=== PATIENT | female | born 1970 | race Caucasian/White ===

== ENCOUNTER 2020-11-13 07:20 | Outpatient (REF) | payer OTHER, SELFPAY | END 2020-11-13 07:21 | disposition home or self-care (01) | LOC: HO.LAB 07:20 | PROVIDERS: PCP Internal Medicine; Visit Provider Internal Medicine | DX: Z20.828 Contact with and (suspected) exposure to other viral communicable diseases (principal) | CPT/HCPCS: C9803; U0003 ==

== ENCOUNTER 2021-01-17 10:19 | Outpatient (REF) | payer OTHER, SELFPAY ==
[2021-01-17 12:34] LABS: Glucose Urine UA NEG (NEG); Leukocyte Esterase Urine NEG (NEG); Nitrite Urine NEG (NEG); PH 5.5 (5.0-8.0); Specific Gravity - Urine >= 1.030 (1.005-1.025); Urine Blood 1+ (NEG); Urine Ketones NEG (NEG); Urine Protein NEG (NEG-TRACE)
[2021-01-17 12:40] LABS: Appearance Urine CLEAR; Color Urine YELLOW
[2021-01-17 13:18] LABS: Bacteria Urine TRACE /LPF; Mucus Urine 1+ /LPF; RBC Urine 0-2 /HPF (0); Squamous Epithelial Cell Urine 1+ /LPF; WBC Urine 0-2 /HPF (0-4)
== END 2021-01-17 10:20 | disposition home or self-care (01) ==
LOC: HO.LNP 10:19
PROVIDERS: PCP Internal Medicine; Visit Provider Internal Medicine
DX: R31.0 Gross hematuria (principal)
CPT/HCPCS: 81001; 81003

== ENCOUNTER 2021-01-30 10:22 | Outpatient (REF) | payer OTHER, SELFPAY ==
[2021-01-30 10:34] LABS: Glucose Urine UA NEG (NEG); Leukocyte Esterase Urine NEG (NEG); Nitrite Urine NEG (NEG); Specific Gravity - Urine <= 1.005 (1.005-1.025); Urine Blood NEG (NEG); Urine Ketones NEG (NEG); Urine Protein NEG (NEG-TRACE)
[2021-01-30 10:37] LABS: Appearance Urine CLEAR; Color Urine YELLOW
== END 2021-01-30 10:23 | disposition home or self-care (01) ==
LOC: HO.LNP 10:22
PROVIDERS: Visit Provider Internal Medicine
DX: R31.9 Hematuria, unspecified (principal)
CPT/HCPCS: 81003

== ENCOUNTER 2021-02-28 07:45 | Outpatient (REF) | payer OTHER, SELFPAY ==
[2021-02-28 10:38] LABS: MANUAL DIFF FLAG NO
[2021-02-28 11:07] LABS: Basophils Absolute Auto 0.1 X10*3/uL (0.0-0.2); Basophils Percent Auto 0.7 % (0-2); Eosinophils Absolute Auto 0.1 X10*3/uL (0.0-0.4); Eosinophils Percent Auto 1.1 % (0-4); Hematocrit 40.8 % (37-47); Hemoglobin 13.6 g/dl (12.0-16.0); Imm Gran Abs Auto 0.02 X10*3/uL (0.00-0.03); Imm Gran Pct Auto 0.3 % (0.0-0.4); Lymphocytes Percent Auto 27.7 % (20-40); Mean Corpuscular HGB Conc 33.3 g/dl (31.0-35.0); Mean Corpuscular Hemoglobin 30.8 pg (27.0-33.0); Mean Corpuscular Volume 92.5 fL (80-98); Monocytes Absolute Auto 0.3 X10*3/uL (0.1-1.2); Monocytes Percent Auto 4.8 % (2-11); Neutrophils Absolute Auto 4.6 X10*3/uL (2.0-8.3); Neutrophils Percent Auto 65.4 % (45-73); Platelet Count 380 X10*3/uL (160-400); Red Blood Count 4.41 X10*6/uL (4.20-5.50); Red Cell Distribution Width 12.2 % (11.0-16.0); White Blood Count 7.1 X10*3/uL (4.8-10.8)
[2021-02-28 11:44] LABS: Glucose Urine UA NEG (NEG); Leukocyte Esterase Urine TRACE (NEG); Nitrite Urine NEG (NEG); Specific Gravity - Urine >= 1.030 (1.005-1.025); Urine Blood TRACE (NEG); Urine Ketones NEG (NEG); Urine Protein NEG (NEG-TRACE)
[2021-02-28 11:51] LABS: Appearance Urine HAZY; Color Urine YELLOW
[2021-02-28 11:59] LABS: Alanine Aminotransferase 13 U/L (0-31); Albumin Level 4.3 g/dL (3.5-5.0); Alkaline Phosphatase 69 U/L (39-117); Anion Gap 12 (12-20); Aspartate Amino Transferase 18 U/L (5-31); Bilirubin Total 0.7 mg/dL (0.0-1.0); Blood Urea Nitrogen 17 mg/dL (9-16); Calcium 8.9 mg/dL (8.4-10.2); Carbon Dioxide 26 mmol/L (22-29); Chloride 107 mmol/L (96-108); Cholesterol 215 mg/dL; Estimated Glomerular Filt Rate > 60; Glucose Fasting 90 mg/dL (60-99); HDL Cholesterol 49 mg/dL; LDL Cholesterol Calculated 140 mg/dl; Potassium 4.2 mmol/L (3.3-5.1); Sodium 141 mmol/L (135-145); Total Protein 7.2 g/dL (6.5-8.0); Triglycerides 132 mg/dL
[2021-02-28 12:05] LABS: Vitamin D 25-OH Total 11.2 ng/mL (>30)
[2021-02-28 12:18] LABS: Bacteria Urine 2+ /LPF; Mucus Urine 2+ /LPF; RBC Urine 0 /HPF (0); Squamous Epithelial Cell Urine 2+ /LPF
== END 2021-02-28 07:46 | disposition home or self-care (01) ==
LOC: HO.LNP 07:45
PROVIDERS: Visit Provider Internal Medicine
DX: Z00.00 Encounter for general adult medical examination without abnormal findings (principal); R31.9 Hematuria, unspecified; R73.01 Impaired fasting glucose; E78.2 Mixed hyperlipidemia
CPT/HCPCS: 80053; 80061; 81001; 81003; 82306; 85025

== ENCOUNTER 2021-09-16 10:56 | Outpatient (REF) | payer OTHER, SELFPAY ==
[2021-09-16 11:25] LABS: COVID-19 Test Negative (Negative)
== END 2021-09-16 10:57 | disposition home or self-care (01) ==
LOC: HO.LAB 10:56
PROVIDERS: PCP Internal Medicine; Visit Provider Internal Medicine
DX: Z20.822 Contact with and (suspected) exposure to COVID-19 (principal)
CPT/HCPCS: 36415; 87635; C9803

== ENCOUNTER 2021-10-09 14:30 | Outpatient (REF) | payer OTHER, SELFPAY ==
--- NOTE | ~2021-10-09 | US_ITS ---
EXAMINATION: US VENOUS ULTRASOUND WITH DOPPLER LOWER EXTREMITY, LEFT CLINICAL INFORMATION: Left leg swelling. COMPARISON: None TECHNIQUE: Ultrasound of the deep veins is performed from the hip to the calf with compression sonography and color and pulse Doppler assessment. Spectral analysis with color-flow imaging is performed. FINDINGS: There is normal venous compression and respiratory variation and augmented flow. The visualized common femoral vein, superficial femoral vein, profunda femoral vein, popliteal vein, and the trifurcation region shows no evidence of deep venous thrombosis. There is no significant popliteal fossa cyst. There is anechoic fluid collection posterior to the knee medially measuring 2.6 x 0.9 x 1.3 cm, ? small Arevalo's cyst If the patient's symptoms persist, followup ultrasound in 5 days 7 days might be of value to exclude proximal propagation from a non-visualized calf vein. US/US venous duplex LE IMPRESSION: No DVT demonstrated in the left lower extremity. Suspect small Arevalo's cyst.
== END 2021-10-09 14:31 | disposition home or self-care (01) ==
LOC: HO.US 14:30
PROVIDERS: PCP Internal Medicine; Visit Provider Internal Medicine
DX: R60.0 Localized edema (principal); M79.89 Other specified soft tissue disorders
CPT/HCPCS: 93971

== ENCOUNTER 2021-10-24 08:30 | Day surgery (SDC) | payer OTHER, SELFPAY ==
--- NOTE | 2021-10-23 12:28 | P.CONAN_ITS ---
Documented by User: Tonia Talbot NP 10/23/21 12:28 HPI - Anesthesia Eval Consult details Narrative: 51yo F for Colonoscopy PMFSH Active Problems Active Problems: All Active Problems (Updated 10/15/21 @ 15:15 by Seema Perry, ZEHRA) Sprain of knee (Acute) Past Medical History Medical History COVID-19 vaccine series completed History of COVID-19 No pertinent past medical history Surgical History Surgical History Hx of tubal ligation Social History Social History Are you a primary urgent care nurse practitioner to a significant other at home: No Do you presently have visiting nurse or other home services: No Patient Tobacco Use Status: Never used Tobacco Use of substances other than those prescribed or required for medical reasons: No Are you DNR?: No Advance Directives: No Advance Directives Information Provided: Yes Meds Allergies Allergy/AdvReac Type Severity Reaction Status Date / Time No Known Allergies Allergy Verified 10/24/21 09:55 [No Known Allergies*] Exam Exam Date and Time: October 23, 2021 1228 Assessment and Plan Assessment Anesthesia Assessment: Chart Reviewed Documented by User: Sindy Tay MD 10/24/21 10:58 [facility] Past Medical History Medical History COVID-19 vaccine series completed History of COVID-19 No pertinent past medical history Family History Family history of problems with anesthesia: No Surgical History Surgical History Hx of tubal ligation History of Problems with Anesthesia: No Social History Social History Are you a primary urgent care nurse practitioner to a significant other at home: No Do you presently have visiting nurse or other home services: No Patient Tobacco Use Status: Never used Tobacco Use of substances other than those prescribed or required for medical reasons: No Are you DNR?: No Advance Directives: No Advance Directives Information Provided: Yes Meds Allergies Allergy/AdvReac Type Severity Reaction Status Date / Time No Known Allergies Allergy Verified 10/24/21 09:55 [No Known Allergies*] Exam Height,Weight and Vital Signs: Height 5 ft 2 in Weight 66.224 kg Vital Signs Temp Pulse Resp BP Pulse Ox 10/24/21 09:56 98.0 F 96 20 143/95 H 98 Airway Mallampati Class: II TM Dist: >3cm Neck ROM: Full Heart: RRR Lungs: CTAB Assessment and Plan Assessment Anesthesia Assessment: Anesthesia Plan Discussed Final Anesthetic Review Family History of Problems with Anesthesia: No History of Problems with Anesthesia: No NPO: Yes ASA Class: I Final Preanesthetic Review: No Changes in Pt Med Stat, Meds/Allgs Chart Reviewed, Consent Obtained/Reviewed and Anes Risks/Benef Reviewed Patient Risk: Low Procedure Risk: Low Assessment/Block/Sedation in SS: Assess/Block/Sedation-SS Anesthetic Plan Anesthetic Plan: MAC: Disposition: Standard PACU
[2021-10-24 09:56] VITALS: BP 143/95; PULSE 96; RESP 20; TEMP 36.7; O2SAT 98; BMI 26.6
[2021-10-24] MEDS: Lactated Ringers 1,000 ML 100 ML IVCONT (10:10)
--- NOTE | 2021-10-24 10:27 | MHC.SHP ---
Pre-Procedural Eval Section A Date of Service: 10/24/21 Section B Chief Complaint: screening Details of Present Illness: see H&P no changes Relevant Family History (Specify if Yes): No Relevant Social History: None Medical History: No relevant PMH History of Previous Operations: No relevant previous surgery Allergies: Allergies Allergy/AdvReac Type Severity Reaction Status Date / Time No Known Allergies Allergy Verified 10/24/21 09:55 [No Known Allergies*] Review of Systems Sugical H&P ROS: Negative: Constitution, Cardiovascular, Respiratory, Neurological, Psychiatric, Hem-Onc, Allergic/Immunologic, Gastrointestinal, Genitourinary, Musculoskeletal, Integumentary, Endocrine and Eyes/Ears/Nose/Throat Exam Surgical H&P Exam: Normal: HEENT, Normal: Heart, Normal: Lungs, Normal: Extremities, Normal: Abdomen, Normal: Skin and Normal: Neurological Plan Diagnosis/Plan: Unchanged I have reviewed the history and physical and performed a pertinent physical examination on my patient. No changes have occurred unless specified.
--- NOTE | 2021-10-24 11:06 | PM.OP ---
Brief Operative Note Date of Service: 10/24/21 Pre-op diagnosis: screening Post-op diagnosis: same Procedure: colonoscopy Surgeon: Taiwo Weiss Anesthesia: MAC Was an Regulatory Affairs Specialist used for this Procedure?: No Estimated blood loss (mL): 0 Pathology: none sent Condition: stable Disposition: PACU
[2021-10-24 11:10] VITALS: BP 90/53; PULSE 85; RESP 16; TEMP 36.7; O2SAT 97
[2021-10-24 11:25] VITALS: BP 126/84; PULSE 74; RESP 16; O2SAT 98
[2021-10-24 11:40] VITALS: BP 128/84; PULSE 84; RESP 16; TEMP 36.7; O2SAT 99
--- NOTE | 2021-10-24 12:22 | OP_ITS ---
SURGEON: Taiwo Weiss MD INDICATIONS: Colon cancer screening. PREOPERATIVE DIAGNOSIS: POSTOPERATIVE DIAGNOSIS: PROCEDURE PERFORMED: Colonoscopy to the terminal ileum. ESTIMATED BLOOD LOSS: COMPLICATIONS: ANESTHESIA: Monitored anesthesia care. ASSISTANTS: SPECIMENS: DESCRIPTION OF PROCEDURE: History and physical performed. The risks and benefits of the procedure were explained to the patient. Informed consent was obtained. The patient was placed in the left lateral decubitus position. A digital rectal exam was performed and was found to be normal. The Olympus pediatric video colonoscope was introduced into the rectum and advanced to the cecum without difficulty. The cecum was identified by transillumination, palpation, and identification of ileocecal valve. Examination was performed. The scope was removed. She tolerated the procedure well and was taken to recovery area in stable condition. FINDINGS: The terminal ileum was examined and appeared normal. The visualized colonic mucosa was normal. The quality of prep was good. No polyps were identified. Retroflexed examination was normal. IMPRESSION: Normal colonoscopy. RECOMMENDATIONS: 1. Follow up as needed. 2. Repeat colonoscopy is recommended in 10 years for average risk individuals. MD JUMA Plummer/LEONID / [id number]
== END 2021-10-24 12:25 | disposition home or self-care (01) ==
PROVIDERS: PCP Internal Medicine; Visit Provider Internal Medicine Gastroenterology
PROC: 0DJD8ZZ Inspection of Lower Intestinal Tract, Via Natural or Artificial Opening Endoscopic (ICD-10-PCS; CPT 45378; principal; 2021-10-24 10:20)
DX: Z12.11 Encounter for screening for malignant neoplasm of colon (principal); Z86.16 Personal history of COVID-19; Z98.51 Tubal ligation status
CPT/HCPCS: 45378

== ENCOUNTER 2021-11-25 08:00 | Outpatient (REF) | payer OTHER, SELFPAY ==
--- NOTE | ~2021-11-25 | XR_ITS ---
EXAMINATION: XR KNEE, LEFT XR KNEE AP STANDING CLINICAL INFORMATION: Pain unspecified knee COMPARISON: None TECHNIQUE: Lateral and sunrise views of the left knee. AP bilateral standing view of the knees was obtained. FINDINGS: Bones and soft tissues are normal. No fracture. On lateral radiograph there may be trace left effusion. Alignment is anatomic. Arguably there is slight narrowing of the medial joint spaces. Otherwise joint spaces are well-maintained. No abnormal soft tissue calcification. XR/XR knee LT 2V IMPRESSION: Questionable trace left effusion and mild bilateral medial compartmental narrowing
--- NOTE | ~2021-11-25 | XR_ITS ---
EXAMINATION: XR KNEE, LEFT XR KNEE AP STANDING CLINICAL INFORMATION: Pain unspecified knee COMPARISON: None TECHNIQUE: Lateral and sunrise views of the left knee. AP bilateral standing view of the knees was obtained. FINDINGS: Bones and soft tissues are normal. No fracture. On lateral radiograph there may be trace left effusion. Alignment is anatomic. Arguably there is slight narrowing of the medial joint spaces. Otherwise joint spaces are well-maintained. No abnormal soft tissue calcification. XR/XR knee standing BI IMPRESSION: Questionable trace left effusion and mild bilateral medial compartmental narrowing
== END 2021-11-25 08:01 | disposition home or self-care (01) ==
LOC: HO.HOSX 08:00
PROVIDERS: Visit Provider Physician Assistant
DX: M22.2X2 Patellofemoral disorders, left knee (principal)
CPT/HCPCS: 20610; 73560; 73565; J1040

== ENCOUNTER 2022-02-17 14:19 | Outpatient (REF) | payer OTHER, SELFPAY ==
[2022-02-18 10:37] LABS: CT PCR NOT DETECTED (Not Detect.); NG PCR NOT DETECTED (Not Detect.)
[2022-02-19 15:26] LABS: HPV mRNA E6/E7 rflx Not Detected (Not Detected)
== END 2022-02-17 14:20 | disposition home or self-care (01) ==
LOC: HO.LAB 14:19
PROVIDERS: PCP Internal Medicine; Visit Provider Advanced Practice Midwife
DX: Z01.419 Encounter for gynecological examination (general) (routine) without abnormal findings (principal); N95.1 Menopausal and female climacteric states; Z11.51 Encounter for screening for human papillomavirus (HPV); Z11.3 Encounter for screening for infections with a predominantly sexual mode of transmission; Z11.8 Encounter for screening for other infectious and parasitic diseases
CPT/HCPCS: 87491; 87591; 87624; 88142

== ENCOUNTER 2022-03-06 09:57 | Outpatient (REF) | payer OTHER, SELFPAY ==
[2022-03-06 10:01] LABS: MANUAL DIFF FLAG NO
[2022-03-06 10:17] LABS: Basophils Absolute Auto 0.1 X10*3/uL (0.0-0.2); Basophils Percent Auto 0.8 % (0-2); Eosinophils Absolute Auto 0.1 X10*3/uL (0.0-0.4); Eosinophils Percent Auto 1.2 % (0-4); Hematocrit 40.2 % (37.0-47.0); Hemoglobin 13.7 g/dl (12.0-16.0); Imm Gran Abs Auto 0.02 X10*3/uL (0.00-0.03); Imm Gran Pct Auto 0.3 % (0.0-0.4); Lymphocytes Absolute Auto 2.2 X10*3/uL (1.2-4.9); Lymphocytes Percent Auto 29.1 % (20-40); Mean Corpuscular HGB Conc 34.1 g/dl (31.0-35.0); Mean Corpuscular Hemoglobin 31.9 pg (27.0-33.0); Mean Corpuscular Volume 93.7 fL (80.0-98.0); Mean Platelet Volume 10.4 fL (9.4-12.3); Monocytes Absolute Auto 0.4 X10*3/uL (0.1-1.2); Monocytes Percent Auto 4.9 % (2-11); Neutrophils Absolute Auto 4.8 x10*3/uL (2.0-8.3); Neutrophils Percent Auto 63.7 % (45-73); Platelet Count 326 X10*3/uL (160-400); Red Blood Count 4.29 X10*6/uL (4.20-5.50); White Blood Count 7.5 X10*3/uL (4.8-10.8)
[2022-03-06 10:27] LABS: Alanine Aminotransferase 14 U/L (0-31); Albumin Level 4.2 g/dL (3.5-5.0); Alkaline Phosphatase 67 U/L (39-117); Anion Gap 12 (12-20); Aspartate Amino Transferase 19 U/L (5-31); Blood Urea Nitrogen 17 mg/dL (9-16); Calcium 9.2 mg/dL (8.4-10.2); Carbon Dioxide 24 mmol/L (22-29); Chloride 105 mmol/L (96-108); Cholesterol 254 mg/dL; Estimated Glomerular Filt Rate > 60; Glucose Fasting 98 mg/dL (60-99); HDL Cholesterol 54 mg/dL; LDL Cholesterol Calculated 155 mg/dl; Potassium 4.2 mmol/L (3.3-5.1); Sodium 137 mmol/L (135-145); Total Protein 7.1 g/dL (6.5-8.0); Triglycerides 227 mg/dL
[2022-03-06 10:48] LABS: Vitamin D 25-OH Total 12.9 ng/mL (>30)
[2022-03-06 12:17] LABS: Appearance Urine CLOUDY; Color Urine STRAW; Glucose Urine UA NEG (NEG); Leukocyte Esterase Urine NEG (NEG); Nitrite Urine NEG (NEG); PH 5.5 (5.0-8.0); Specific Gravity - Urine >= 1.030 (1.005-1.025); Urine Blood TRACE (NEG); Urine Ketones NEG (NEG); Urine Protein NEG (NEG-TRACE)
[2022-03-06 12:27] LABS: Amorphous Sediment Urine 4+ /LPF; RBC Urine 0-2 /HPF (0); Squamous Epithelial Cell Urine TRACE /LPF; WBC Urine 0 /HPF (0-4)
== END 2022-03-06 09:58 | disposition home or self-care (01) ==
LOC: HO.LNP 09:57
PROVIDERS: Visit Provider Internal Medicine
DX: Z00.00 Encounter for general adult medical examination without abnormal findings (principal); E78.2 Mixed hyperlipidemia; E55.9 Vitamin D deficiency, unspecified
CPT/HCPCS: 80053; 80061; 81001; 81003; 82306; 85025

== ENCOUNTER 2022-03-25 07:28 | Outpatient (REF) | payer OTHER, SELFPAY ==
--- NOTE | ~2022-03-25 | MM_ITS ---
EXAMINATION: MM SCREENING DIGITAL BREAST TOMOSYNTHESIS, BILATERAL CLINICAL INFORMATION: Screening. Asymptomatic. The lifetime risk of breast cancer based on the Tyrer-Cuzick Model is 8%. COMPARISON: Mammography: 12/15/2019, 09/28/2018, 05/11/2017 TECHNIQUE: Digital breast tomosynthesis is performed in both the craniocaudal and mediolateral oblique views along with computer-aided detection (CAD). Synthesized 2D images are generated from the tomosynthesis. FINDINGS: The breasts are heterogeneously dense, which may obscure small masses (ACR BI-RADS breast composition Category c). There are no significant masses, abnormal calcifications, or other abnormalities. Breast tissue composition borders on average fibroglandular. Again, there is biopsy clip marker mid upper outer left breast with some adjacent punctate calcifications. The skin contours are smooth. No significant changes. MM/MM tomosynthesis screening BI IMPRESSION: No mammographic evidence of malignancy. ASSESSMENT: BI-RADS 2: Benign RECOMMENDATION: Routine annual mammography screening. This patient's information was entered into a reminder system with a target due date for their next mammogram.
== END 2022-03-25 07:29 | disposition home or self-care (01) ==
LOC: HO.MAMMO 07:28
PROVIDERS: PCP Internal Medicine; Visit Provider Internal Medicine
DX: Z12.31 Encounter for screening mammogram for malignant neoplasm of breast (principal)
CPT/HCPCS: 77063; 77067

== ENCOUNTER → 2022-04-27 12:41 | Outpatient (REF) | payer OTHER, SELFPAY ==
--- NOTE | 2022-04-27 12:44 | CA_ITS ---
Transthoracic Echocardiogram Patient (Last, First, Middle): Gloria Lee, Gender: Female Date of : 1970 Age: 52 Procedure Date: 04/27/2022 Procedure Type: Transthoracic Echocardiogram Location: OP Height: 157.48 cm Weight: 72.58 kg BSA: 1.74 m2 Heart Rate: 74 bpm BP: 124 / 72 mmHg Staff Accountant: SB Referring MD: Diego Mayes MD Symptoms: R01.1 HEART MURMUR Study Quality: Good ECG Rhythm: Sinus Conclusions: - The left ventricular systolic function is normal. The calculated ejection fraction is 62% by biplane method. - There is low normal right ventricular systolic function. - There is mild tricuspid valve regurgitation. Findings Left Ventricle Normal left ventricular cavity size. There is normal left ventricular wall thickness. The left ventricular systolic function is normal. The calculated ejection fraction is 62% by biplane method. Diastolic function is normal for age. Peak global longitudinal strain - 16.3%; minimally reduced. Could also be technical. Right Ventricle Normal right ventricular cavity size. There is low normal right ventricular systolic function. Atria Both atria are normal in size. Aortic Valve There is a normal trileaflet aortic valve. There is no aortic valve stenosis. There is no aortic valve regurgitation. Mitral Valve The mitral valve appears normal. There is trace mitral valve regurgitation. There is no mitral valve stenosis. Pulmonic Valve The pulmonic valve is likely normal. There is trace pulmonic valve regurgitation. Tricuspid Valve Normal tricuspid valve structure. There is mild tricuspid valve regurgitation. The pulmonary artery systolic pressure is normal. Great Vessels The aortic annulus, sinuses of valsalva, asc aorta, and aortic arch are normal in size. Venous The inferior vena cava is normal in size and collapses greater than 50% with inspiration. Pericardium/Pleural There is no evidence of pericardial effusion. Prior Study Comparison No prior study available for comparison. Reporting delayed due to technical difficulty. Measurements manually entered. Measurements 2D Linear Measurements RVIDd: 4.08 IVSd: 0.76 0.6-0.9/0.6-1.0 cm LVIDd: 4.85 3.9-5.3/4.2-5.9 cm LVIDs: 3.16 2.0-3.6 cm LVPWd: 0.70 0.7-1.1 cm LA Diam: 3.70 2.7-3.8/3.0-4.0 cm LVOT Diam: 2.10 3.0+(-)1.3 cm 2D Volumes LA ESV A/L: 28.20 22-52/18-58 ML/M2 RA ESV A/L: 16.30 19-21 ML/M2 2D Systolic Function EF Teich: 63.90 >55% EF 4C: 64.60 >55% EF 2C: 58.40 >55% EF BiP: 62.00 >55% Mitral Valve MV Pk E: 0.84 MV PK A: 0.82 MV Decel Time: 211.00 E/A: 1.00 E'Lateral: 9.14 E'Medial: 6.85 E/E' Med: 12.30 E/E' Lat: 9.20 PHT: 62.00 MVA PHT: 3.55 Aortic Valve AoV Pk Gera: 1.54 AoV Mn Gera: 1.04 AoV VTI: 33.90 AoV Pk Grad: 9.00 Aov Mn Grad: 5.00 ANDRAE Cont.VTI: 2.39 ANDRAE Method: Continuity Equation LVOT LVOT Pk Gera: 1.17 LVOT Mn Gera: 0.77 LVOT VTI: 23.40 LVOT Pk Grad: 6.00 LVOT Mn Grad: 3.00 LVOT Diam: 2.10 Diastolic Function MV Pk E: 0.84 MV Pk A: 0.82 E/A: 1.00 E'Medial: 6.85 E/E' Med: 12.30 E' Laterial: 9.14 E/E' Lat: 9.20 IVC Diam Insp: 1.97 IVC Diam Exp: 0.78 Right Ventricle TAPSE (mm): 16.90 TVS' Gera: 10.90 Tricuspid Valve TR Pk Gera: 2.20 TR Pk Grad: 20.00 RA Press: 3.00 RVSP: 23.00 IVC Diam Exp: 0.78 IVC Diam Insp: 1.97 Great Vessels Aorta Sinus of Valsalva: 2.68 2.0-3.[address] Ridge: 2.44 1.7-3.4 cm Ao Asc: 2.90 2.1-3.4 cm Pulmonary Veins Pulm Vein Pk S Gera: 0.64 Pulm Vein Pk D Gera: 0.42 Pulm Vein S/D 1.50 Pulmonary Valve PV Pk Gera: 0.77 Peak PV Grad: 2.00 Updated in Other Vendor System with Status of Final Tyler Sneed MD electronically signed on 04/29/2022 5:42:57 PM with status of Final
== END ==
LOC: HO.CARD 12:41
PROVIDERS: PCP Internal Medicine; Visit Provider Internal Medicine
DX: R01.1 Cardiac murmur, unspecified (principal)
CPT/HCPCS: 93306

== ENCOUNTER 2023-02-19 14:05 | Outpatient (REF) | payer OTHER, SELFPAY ==
[2023-02-20 10:14] LABS: BV Int Neg Control Negative (Negative); BV Int Pos Control Positive (Positive)
== END 2023-02-19 14:06 | disposition home or self-care (01) ==
LOC: HO.LNP 14:05
PROVIDERS: PCP Internal Medicine; Visit Provider Advanced Practice Midwife
DX: N76.0 Acute vaginitis (principal); N95.0 Postmenopausal bleeding; R23.2 Flushing
CPT/HCPCS: 87480; 87510; 87660

== ENCOUNTER 2023-02-25 15:22 | Outpatient (REF) | payer OTHER, SELFPAY ==
--- NOTE | ~2023-02-25 | XR_ITS ---
EXAMINATION: XR ANKLE, RIGHT CLINICAL INFORMATION: Pain ankle COMPARISON: None available. TECHNIQUE: Right ankle is imaged in 3 views. FINDINGS: Normal bony mineralization. The malleoli appear intact and the ankle mortise is symmetric. No fracture, dislocation, or arthropathy. No visible ankle capsular effusion. The subtalar joint appears normal. The retrocalcaneal recess is preserved. There is small to moderate plantar calcaneal spur. XR/XR ankle RT min 3V IMPRESSION: Small to moderate plantar calcaneal spur.
== END 2023-02-25 15:23 | disposition home or self-care (01) ==
LOC: HO.HOSX 15:22
PROVIDERS: Visit Provider Physician Assistant
DX: S93.401A Sprain of unspecified ligament of right ankle, initial encounter (principal); X58.XXXA Exposure to other specified factors, initial encounter; Y93.9 Activity, unspecified; Y92.9 Unspecified place or not applicable; Y99.9 Unspecified external cause status
CPT/HCPCS: 73610

== ENCOUNTER 2023-03-09 12:07 | Outpatient (REF) | payer OTHER, SELFPAY ==
[2023-03-09 12:10] LABS: MANUAL DIFF FLAG NO
[2023-03-09 12:49] LABS: Basophils Absolute Auto 0.1 X10*3/uL (0.0-0.2); Basophils Percent Auto 0.8 % (0-2); Eosinophils Absolute Auto 0.1 X10*3/uL (0.0-0.4); Eosinophils Percent Auto 1.4 % (0-4); Hematocrit 44.6 % (37.0-47.0); Hemoglobin 15.3 g/dl (12.0-16.0); Imm Gran Abs Auto 0.03 X10*3/uL (0.00-0.03); Imm Gran Pct Auto 0.4 % (0.0-0.4); Lymphocytes Absolute Auto 1.9 X10*3/uL (1.2-4.9); Lymphocytes Percent Auto 24.8 % (20-40); Mean Corpuscular HGB Conc 34.3 g/dl (31.0-35.0); Mean Corpuscular Hemoglobin 32.1 pg (27.0-33.0); Mean Corpuscular Volume 93.7 fL (80.0-98.0); Mean Platelet Volume 9.8 fL (9.4-12.3); Monocytes Absolute Auto 0.5 X10*3/uL (0.1-1.2); Monocytes Percent Auto 5.9 % (2-11); Neutrophils Absolute Auto 5.1 x10*3/uL (2.0-8.3); Neutrophils Percent Auto 66.7 % (45-73); Platelet Count 368 X10*3/uL (160-400); Red Blood Count 4.76 X10*6/uL (4.20-5.50); Red Cell Distribution Width 12.1 % (11.0-16.0); White Blood Count 7.6 X10*3/uL (4.8-10.8)
[2023-03-09 12:55] LABS: Appearance Urine Clear; Color Urine Yellow; Glucose Urine UA Negative (Negative); Leukocyte Esterase Urine Negative (Negative); Nitrite Urine Negative (Negative); PH 5.5 (5.0-9.0); UMIC TRIGGER UACC YES; Urine Blood Trace (Negative); Urine Ketones Negative (Negative); Urine Protein Negative (Neg-Trace)
[2023-03-09 12:59] LABS: Bacteria Urine Trace (None Seen); Hyaline Casts Urine 0-2 /LPF (0-2); WBC Urine 0-5 /HPF (0-5)
[2023-03-09 13:53] LABS: Alanine Aminotransferase 23 U/L (0-31); Albumin Level 4.3 g/dL (3.5-5.0); Alkaline Phosphatase 78 U/L (39-117); Anion Gap 16 (12-20); Aspartate Amino Transferase 23 U/L (5-31); Bilirubin Total 0.8 mg/dL (0.0-1.0); Blood Urea Nitrogen 14 mg/dL (9-16); Carbon Dioxide 24 mmol/L (22-29); Chloride 102 mmol/L (96-108); Cholesterol 265 mg/dL; Estimated Glomerular Filt Rate > 60; Glucose Fasting 101 mg/dL (60-99); HDL Cholesterol 49 mg/dL; LDL Cholesterol Calculated 145 mg/dl; Potassium 3.9 mmol/L (3.3-5.1); Sodium 138 mmol/L (135-145); Total Protein 7.1 g/dL (6.5-8.0); Triglycerides 356 mg/dL
[2023-03-09 13:57] LABS: Vitamin D 25-OH Total 9.5 ng/mL (>30)
== END 2023-03-09 12:08 | disposition home or self-care (01) ==
LOC: HO.LNP 12:07
PROVIDERS: Visit Provider Internal Medicine
DX: Z00.00 Encounter for general adult medical examination without abnormal findings (principal); E55.9 Vitamin D deficiency, unspecified; E78.2 Mixed hyperlipidemia
CPT/HCPCS: 80053; 80061; 81001; 82306; 85025

== ENCOUNTER 2023-03-11 12:42 | Outpatient (REF) | payer OTHER, SELFPAY ==
--- NOTE | ~2023-03-11 | US_ITS ---
EXAMINATION: US PELVIS CLINICAL INFORMATION: Postmenopausal bleeding. COMPARISON: None available. TECHNIQUE: Ultrasound of the pelvis is performed using both transabdominal and transvaginal transducers along with Doppler. Transvaginal imaging is performed due to inadequate visualization transabdominally. FINDINGS: The uterus is anteverted and measures 8.8 x 3.7 x 4.7 cm. There is a 1.8 x 1.8 x 2.4 cm left intramural mid uterine lesion and a 2.6 x 2.5 x 2.2 cm right intramural fundal lesion, statistically favored to represent fibroids. The endometrium measures 0.8 cm in thickness without discrete focal lesion. A small nabothian cysts are noted in the cervix. The ovaries are normal in morphology with preserved flow at the moment of this examination. The right ovary measures 2.6 x 1.2 x 1.8 cm, 3 mL and the left ovary measures 2.7 x 1.3 x 1.4 cm, 2.6 mL. No free fluid. US/US pelvic and transvaginal IMPRESSION: 1. Thickened endometrium in a postmenopausal patient. Recommend SALES CLERK consultation and if indicated correlation with an endometrial biopsy to exclude malignancy. 2. There are 2 intramural lesions in the uterus, statistically favored to represent fibroids.
== END 2023-03-11 12:43 | disposition home or self-care (01) ==
LOC: HO.US 12:42
PROVIDERS: PCP Internal Medicine; Visit Provider Advanced Practice Midwife
DX: N95.0 Postmenopausal bleeding (principal)
CPT/HCPCS: 76830; 76856

== ENCOUNTER 2023-03-24 15:13 | Outpatient (REF) | payer OTHER, SELFPAY | END 2023-03-24 15:14 | disposition home or self-care (01) | LOC: HO.LAB 15:13 | PROVIDERS: PCP Internal Medicine; Visit Provider Advanced Practice Midwife | DX: N95.0 Postmenopausal bleeding (principal); D21.9 Benign neoplasm of connective and other soft tissue, unspecified | CPT/HCPCS: 58100; 81025; 88305 ==

== ENCOUNTER → 2023-04-01 13:23 | Outpatient (BNVA) | payer OTHER, SELFPAY | PROVIDERS: PCP Internal Medicine; Visit Provider Advanced Practice Midwife ==

== ENCOUNTER 2023-04-08 10:24 | Outpatient (REF) | payer OTHER, SELFPAY ==
[2023-04-08 11:21] LABS: Appearance Urine Cloudy; Color Urine Yellow; Glucose Urine UA Negative (Negative); Leukocyte Esterase Urine Negative (Negative); Nitrite Urine Negative (Negative); PH 5.5 (5.0-9.0); UMIC TRIGGER UACC YES; Urine Blood Small (1+) (Negative); Urine Ketones 15 mg/dL (Negative); Urine Protein Negative (Neg-Trace)
[2023-04-08 11:38] LABS: Bacteria Urine 4+ (None Seen); RBC Urine 0-2 /HPF (0-2); Squamous Epithelial Cell Urine >20 /HPF (0-2); UACC Culture Trigger YES
== END 2023-04-08 10:25 | disposition home or self-care (01) ==
LOC: HO.LNP 10:24
PROVIDERS: PCP Internal Medicine; Visit Provider Internal Medicine
DX: R31.9 Hematuria, unspecified (principal)
CPT/HCPCS: 81001; 87086

== ENCOUNTER → 2023-05-10 12:35 | Outpatient (BNVA) | payer OTHER, SELFPAY | PROVIDERS: PCP Internal Medicine; Visit Provider Obstetrics & Gynecology ==

== ENCOUNTER 2023-05-14 11:11 | Outpatient (REF) | payer OTHER, SELFPAY ==
[2023-05-14 11:42] LABS: Appearance Urine Cloudy; Color Urine Yellow; Glucose Urine UA Negative (Negative); Leukocyte Esterase Urine Negative (Negative); Nitrite Urine Negative (Negative); PH 5.5 (5.0-9.0); Specific Gravity - Urine 1.025 (1.005-1.025); Urine Blood Negative (Negative); Urine Ketones Trace mg/dL (Negative); Urine Protein Negative (Neg-Trace)
[2023-05-14 11:46] LABS: Bacteria Urine 3+ (None Seen); Hyaline Casts Urine 0-2 /LPF (0-2); RBC Urine 0-2 /HPF (0-2); UACC Culture Trigger YES
== END 2023-05-14 11:12 | disposition home or self-care (01) ==
LOC: HO.LNP 11:11
PROVIDERS: Visit Provider Internal Medicine
DX: R31.9 Hematuria, unspecified (principal)
CPT/HCPCS: 81001; 87086

== ENCOUNTER 2023-06-01 15:47 | Outpatient (AMB) | payer OTHER, SELFPAY ==
--- OUTSIDE RECORDS SUMMARY | 2023-06-01 15:49 | XMS_ITS ---
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 Name Role Phone Diego Mayes Unavailable [phone] Venkat Glass Unavailable Unavailable Diego Mayes Unavailable [phone] PROBLEMS Type Condition ICD9-CM Code [id number] Code Onset Dates Condition Status SNOMED Code Problem Perimenopausal N95.1 Active 764264199 743482 Problem Memory loss R41.3 Active 71319813 Problem Dysthymia F34.1 Active 64240902 Problem Vitamin D deficiency E55.9 Active 49180491 Problem Hot flashes due to menopause N95.1 Active Problem Abnormal mammogram R92.8 Active 66844 0009 Problem Elevated triglycerides with high cholesterol E78.2 Active 128683610 Problem Arm paresthesia, left R20.2 Active 54249395 Problem Vaginal bleeding N93.9 Active 3860658 06 ALLERGIES Substance Reaction Event Type Date Status Metronidazole rash Drug Allergy March, Active ENCOUNTERS Encounter Location Date Diagnosis Diego Mayes MD [address] [place] [address] [id number] Apr, Diego Mayes MD [address] [place] [address] [id number] Apr, Hematuria R31.9 Diego Mayes MD [address] [id number] Apr, Diego Mayes MD [address] [id number] March, Hematuria, unspecified type R31.9 and Vaginal bleeding N93.9 Diego Mayes MD [address] [place] [address] [id number] March, Hematuria R31.9 Diego Mayes MD [address] [place] [address] [id number] Feb, Hematuria, unspecified type R31.9 ; Adult general medical exam Z00.00 ; Elevated triglycerides with high cholesterol E78.2 ; Vaginal bleeding N93.9 ; Skin lesion L98.9 and Depression screen Z13.31 Diego Mayes MD [address] [id number] Feb, Blood tests for routine general physical examination Z00.00 ; Vitamin D deficiency E55.9 and Elevated triglycerides with high cholesterol E78.2 Diego Mayes MD [address] [id number] Feb, Allergic reaction to drug, initial encounter T78.40XA Diego Mayes MD [address] [place] [address] [id number] May, COVID-19 U07.1 Diego Mayes MD [address] [place] [address] [id number] Feb, Adult general medical exam Z00.00 ; Elevated triglycerides with high cholesterol E78.2 ; Dysthymia F34.1 ; Vitamin D deficiency E55.9 ; Memory loss R41.3 ; Perimenopausal N95.1 ; Hot flashes due to menopause N95.1 ; Heart murmur R01.1 ; Depression screening Z13.31 and Encounter for screening for other viral diseases Z11.59 Diego Mayes MD [address] [place] [address] [id number] 15 Feb, 2022 Blood tests for routine general physical examination Z00.00 ; Elevated triglycerides with high cholesterol E78.2 and Vitamin D deficiency E55.9 Diego Mayes MD [address] [id number] Oct, Acute pain of left knee M25.562 and Encounter for screening for other viral diseases Z11.59 Diego Mayes MD [address] [id number] Sep, Acute pain of left knee M25.562 ; Labile hypertension R09.89 ; Encounter for immunization Z23 and Encounter for screening for other viral diseases Z11.59 Diego Mayes MD [address] [id number] Sep, Diego Mayes MD [address] [id number] Sep, Diego Mayes MD [address] [place] [address] [id number] Sep, Leg swelling M79.89 and Encounter for screening for other viral diseases Z11.59 Diego Mayes MD [address] [place] [address] [id number] Aug, Non-recurrent acute suppurative otitis media without spontaneous rupture of tympanic membrane, unspecified laterality H66.009 and Acute bacterial conjunctivitis of both eyes H10.33 Diego Mayes MD [address] [id number] 11 Apr, 2021 Menopause Z78.0 ; Acute recurrent maxillary sinusitis J01.01 and Encounter for screening for other viral diseases Z11.59 Diego Mayes MD [address] [place] [address] [id number] 07 Apr, 2021 Acute recurrent maxillary sinusitis J01.01 and COVID-19 U07.1 Diego Mayes MD [address] [place] [address] [id number] 15 Feb, 2021 Adult general medical exam Z00.00 ; Memory loss R41.3 ; Perimenopausal N95.1 ; Abnormal mammogram R92.8 ; Elevated triglycerides with high cholesterol E78.2 ; Dysthymia F34.1 ; Arm paresthesia, left R20.2 ; Encounter for screening for other viral diseases Z11.59 ; Depression screen Z13.31 ; COVID-19 U07.1 ; Vitamin D deficiency E55.9 and Low back pain M54.5 Diego Mayes MD [address] [id number] Feb, Blood tests for routine general physical examination Z00.00 ; Hematuria, unspecified type R31.9 ; Elevated fasting blood sugar R73.01 ; Elevated triglycerides with high cholesterol E78.2 and Perimenopausal N95.1 Diego Mayes MD [address] [id number] Jan, Diego Mayes MD [address] [id number] Jan, Hematuria, unspecified type R31.9 ; Vaginal bleeding N93.9 and Encounter for screening for other viral diseases Z11.59 Diego Mayes MD [address] [id number] Dec, Gross hematuria R31.0 and Encounter for screening for other viral diseases Z11.59 Diego Mayes MD [address] [id number] Aug, Diego Mayes MD [address] [id number] Aug, Arm paresthesia, left R20.2 ; Elevated triglycerides with high cholesterol E78.2 ; Dysthymia F34.1 ; Abnormal mammogram R92.8 ; Encounter for screening for other viral diseases Z11.59 ; Screening mammogram, encounter for Z12.31 and Hematuria, unspecified type R31.9 Diego Mayes MD [address] [id number] Jun, Arm paresthesia, left R20.2 ; Hematuria, unspecified type R31.9 ; Encounter for screening for other viral diseases Z11.59 ; Colon cancer screening Z12.11 ; Perimenopausal N95.1 ; Elevated triglycerides with high cholesterol E78.2 ; Blood tests for routine general physical examination Z00.00 and Elevated fasting blood sugar R73.01 Diego Mayes MD [address] [id number] Apr, Diego Mayes MD [address] [id number] Apr, Diego Mayes MD [address] [id number] Feb, Diego Mayes MD [address] [id number] Nov, Drug overdose, undetermined intent, subsequent encounter T50.904D and Suicide attempt T14.91XA Diego Mayes MD [address] [id number] Nov, Diego Mayes MD [address] [id number] Oct, Unspecified blepharitis right upper eyelid H01.001 and Encounter for immunization Z23 Diego Mayes MD [address] [id number] 15 Sep, 2018 Adverse effect of drug that acts primarily on skin, subsequent encounter T49.95XD ; 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 and Breast cancer screening Z12.31 Diego Mayes MD [address] [id number] Sep, Acute bacterial conjunctivitis of both eyes H10.33 and Urticaria due to cold L50.2 Diego Mayes MD [address] [id number] Jul, Diego Mayes MD [address] [place] [address] [id number] Dec, Dysthymia F34.1 Diego Mayes MD [address] [id number] Oct, Bronchospasm J98.01 Diego Mayes MD [address] [id number] Sep, Elevated triglycerides with high cholesterol E78.2 ; Dysthymia F34.1 ; Abnormal mammogram R92.8 and Refused influenza vaccine Z28.21 Diego Mayes MD [address] [id number] Aug, Elevated triglycerides with high cholesterol E78.2 Diego Mayes MD [address] [id number] Aug, Elevated triglycerides with high cholesterol E78.2 Diego Mayes MD [address] [id number] Jul, Diego Mayes MD [address] [place] [address] [id number] Jul, Annual visit for general adult medical examination with abnormal findings Z00.01 ; Elevated triglycerides with high cholesterol E78.2 ; Depression screening Z13.89 ; Menopause Z78.0 and Dysthymia F34.1 Diego Mayes MD [address] [place] [address] [id number] Jul, Elevated triglycerides with high cholesterol E78.2 Diego Mayes MD [address] [place] [address] [id number] Jul, Blood tests for routine general physical examination Z00.00 and Refused influenza vaccine Z28.21 Diego Mayes MD [address] [place] [address] [id number] Apr, Abnormal mammogram R92.8 Diego Mayes MD [address] [place] [address] [id number] Apr, Breast cancer screening Z12.39 and Breast tenderness N64.4 Diego Mayes MD [address] [place] [address] [id number] Apr, Breast cancer screening Z12.39 and Breast tenderness N64.4 Diego Mayes MD [address] [place] [address] [id number] Jan, Low back pain M54.5 and Perimenopausal N95.1 Diego Mayes MD [address] [place] [address] [id number] Dec, Low back pain M54.5 Diego Mayes MD [address] [place] [address] [id number] Oct, Memory loss R41.3 ; Feeling worried R45.89 and Hematuria R31.9 Diego Mayes MD [address] [place] [address] [id number] Oct, Hematuria R31.9 Diego Mayes MD [address] [place] [address] [id number] Sep, Hematuria R31.9 Diego Mayes MD [address] [place] [address] [id number] Sep, Hematuria R31.9 ; Memory loss R41.3 ; Feeling worried R45.89 and H/O breast lump Z87.898 Diego Mayes MD 10 [facility] [address] [id number] Sep, Diego Mayes MD [address] [id number] Aug, Hematuria R31.9 Diego Mayes MD [address] [id number] Aug, Hematuria R31.9 Diego Mayes MD [address] [id number] Aug, Diego Mayes MD [address] [id number] Aug, Memory loss R41.3 ; Perimenopausal N95.1 ; Feeling worried R45.89 ; H/O breast biopsy Z98.890 ; Refused influenza vaccine Z28.21 and Lump of right breast N63 IMMUNIZATIONS Vaccine Route Administration Date Status Fluarix Quadrivalent IM Intramuscular Oct 13, 2021 Adm inistered SARS-COV-2 Moderna Unknown March 15, 2021 Adminis tered Covid Vaccine Unknown February 15, 2021 Administered Fluarix Quadrivalent IM Intramuscular Oct 28, 2018 Adm inistered Flu Vaccine IM Intramuscular Sep 12, 2017 Administere d SOCIAL HISTORY Qualifiers Date Never Smoker REASON FOR REFERRAL FUNCTIONAL STATUS PLAN OF CARE Activity Details VITAL SIGNS Height 62 in 2023-04-20 Height 62 in 2023-03-12 Height 62 in 2023-03-01 Height 62 in 2022-06-16 Height 62 in 2022-03-10 Height 62 in 2021-11-11 Height 62 in 2021-10-13 Height 62 in 2021-10-09 Height 62 in 2021-09-15 Height 62 in 2021-05-02 Height 62 in 2021-04-28 Height 62 in 2021-03-06 Height 62 in 2021-01-30 Height 62 in 2021-01-17 Height 62 in 2020-06-25 Height 62 in 2018-12-20 Height 62 in 2018-10-28 Height 62 in 2018-10-06 Height 62 in 2018-09-30 Height 62 in 2018-01-11 Height 62 in 2017-11-09 Height 62 in 2017-10-11 Height 62 in 2017-08-17 Height 62 in 2017-05-17 Height 62 in 2017-02-16 Height 62 in 2017-01-08 Height 62 in 2016-11-20 Height 62 in 2016-10-06 Height 62 in 2016-09-03 Weight 160 lbs 2023-04-20 Weight 160 lbs 2023-03-12 Weight 168 lbs 2023-03-01 Weight 149 lbs 2022-06-16 Weight 159 lbs 2022-03-10 Weight 154 lbs 2021-11-11 Weight 153 lbs 2021-10-13 Weight 143 lbs 2021-09-15 Weight 142 lbs 2021-05-02 Weight 138 lbs 2021-04-28 Weight 139 lbs 2021-03-06 Weight 146 lbs 2021-01-30 Weight 149 lbs 2021-01-17 Weight 165 lbs 2020-06-25 Weight 153 lbs 2018-12-20 Weight 159 lbs 2018-10-28 Weight 154 lbs 2018-10-06 Weight 154 lbs 2018-09-30 Weight 145 lbs 2018-01-11 Weight 151 lbs 2017-11-09 Weight 146 lbs 2017-10-11 Weight 148 lbs 2017-08-17 Weight 142 lbs 2017-05-17 Weight 139 lbs 2017-02-16 Weight 140 lbs 2017-01-08 Weight 147 lbs 2016-11-20 Weight 144 lbs 2016-10-06 Weight 144 lbs 2016-09-03 BMI 29.26 kg/m2 2023-04-20 BMI 29.26 kg/m2 2023-03-12 BMI 30.72 kg/m2 2023-03-01 BMI 27.25 kg/m2 2022-06-16 BMI 29.08 kg/m2 2022-03-10 BMI 28.16 kg/m2 2021-11-11 BMI 27.98 kg/m2 2021-10-13 BMI 26.15 kg/m2 2021-09-15 BMI 25.97 kg/m2 2021-05-02 BMI 25.24 kg/m2 2021-04-28 BMI 25.42 kg/m2 2021-03-06 BMI 26.70 kg/m2 2021-01-30 BMI 27.25 kg/m2 2021-01-17 BMI 30.18 kg/m2 2020-06-25 BMI 27.98 kg/m2 2018-12-20 BMI 29.08 kg/m2 2018-10-28 BMI 28.16 kg/m2 2018-10-06 BMI 28.16 kg/m2 2018-09-30 BMI 26.52 kg/m2 2018-01-11 BMI 27.62 kg/m2 2017-11-09 BMI 26.70 kg/m2 2017-10-11 BMI 27.07 kg/m2 2017-08-17 BMI 25.97 kg/m2 2017-05-17 BMI 25.42 kg/m2 2017-02-16 BMI 25.60 kg/m2 2017-01-08 BMI 26.88 kg/m2 2016-11-20 BMI 26.34 kg/m2 2016-10-06 BMI 26.34 kg/m2 2016-09-03 Temperature 98.3 degrees Fahrenheit Temperature 98.1 degrees Fahrenheit Temperature 98.4 degrees Fahrenheit Temperature 98.3 degrees Fahrenheit Temperature 97.7 degrees Fahrenheit Blood pressure systolic 134 mm Hg Blood pressure diastolic 90 mm Hg 2023-03 MEDICATIONS Medication Instructions Dosage Frequency Start Date End Date Duration Status Ibuprofen 200 MG Orally Three times a day 1 tablet with food or milk as needed 8h Not-Takin g Vitamin D3 50 MCG (2000 UT) Orally Once a day 1 capsule 24h Feb, 30 day(s) Not-Takin g PROCEDURES Procedure Date Ordered Result Body Site VENIPUNCT, ROUTINE* March 09, 2023 -ELECTROCARDIOGRAM, COMPLETE Aug 25, 2018 VENIPUNCT, ROUTINE* Aug 31, 2017 VENIPUNCT, ROUTINE* Aug 16, 2017 VENIPUNCT, ROUTINE* February 28, 2021 VENIPUNCT, ROUTINE* Aug 16, 2018 Fluarix Quadrivalent Oct 13, 2021 VENIPUNCT, ROUTINE* March 06, 2022 Fluarix Quadrivalent Oct 28, 2018 IMMUNIZATION ADMIN Oct 13, 2021 IMMUNIZATION ADMIN Oct 28, 2018 RESULTS Name Result Date Reference Range UA ClnCatch+Micro w/rflx Cult 2023-05-14 Color Urine Yellow Appearance Urine Cloudy PH 5.5 5.0-9.0 Glucose Urine UA Negative Negative Urine Blood Negative Negative Specific [place] - Urine 1.025 1.0 05-1.025 Urine Protein Negative Neg-Trace Urine Ketones Trace Negative Nitrite Urine Negative Negative Leukocyte Esterase Urine Negative Neg ative RBC Urine 0-2 0-2 WBC Urine 6-10 0-5 Squamous Epithelial Cell Urine 11-20 0-2 Bacteria Urine 3+ None Seen Hyaline Casts Urine 0-2 0-2 Urine Culture 2023-05-14 Urine Culture Report Result Urine Culture < 10,000 cfu/ml UA ClnCatch+Micro w/rflx Cult 2023-04-08 Color Urine Yellow Appearance Urine Cloudy PH 5.5 5.0-9.0 Glucose Urine UA Negative Negative Urine Blood Small (1+) Negative Specific [place] - Urine 1.020 1.0 05-1.025 Urine Protein Negative Neg-Trace Urine Ketones 15 Negative Nitrite Urine Negative Negative Leukocyte Esterase Urine Negative Neg ative RBC Urine 0-2 0-2 WBC Urine 6-10 0-5 Squamous Epithelial Cell Urine >20 0-2 Bacteria Urine 4+ None Seen Hyaline Casts Urine 3-5 0-2 Urine Culture 2023-04-08 Urine Culture Report Result Urine Culture 10,000 to 50,000 cfu/ml Urine Culture Mixed bacterial sharee a characteristic of Urine Culture urogenital contamination. Pathology 2023-03-24 Complete Blood Count Auto Diff 2023-03-09 White Blood Count 7.6 4.8-10.8 Red Blood Count 4.76 4.20-5.50 Hemoglobin 15.3 12.0-16.0 Hematocrit 44.6 37.0-47.0 Mean Corpuscular Volume 93.7 80.0 -98.0 Mean Corpuscular Hemoglobin 32.1 27.0-33.0 Mean Corpuscular HGB Conc 34.3 31 .0-35.0 Red Cell Distribution Width 12.1 11.0-16.0 Platelet Count 368 160-400 Mean Platelet Volume 9.8 9.4-12. 3 Neutrophils Percent Auto 66.7 45- 73 Imm Gran Pct Auto 0.4 0.0-0.4 Lymphocytes Percent Auto 24.8 20- 40 Monocytes Percent Auto 5.9 2-11 Eosinophils Percent Auto 1.4 0-4 Basophils Percent Auto 0.8 0-2 NRBC Pct Auto 0.0 0.0-0.2 Neutrophils Absolute Auto 5.1 2. 0-8.3 Imm Gran Abs Auto 0.03 0.00-0.03 Lymphocytes Absolute Auto 1.9 1. 2-4.9 Monocytes Absolute Auto 0.5 0.1- 1.2 Eosinophils Absolute Auto 0.1 0. 0-0.4 Basophils Absolute Auto 0.1 0.0- 0.2 NRBC Abs Auto 0.000 0.0-0.012 Comprehensive [place]. Panel Fast 2023-03-09 Sodium 138 135-145 Potassium 3.9 3.3-5.1 Chloride 102 96-108 Carbon Dioxide 24 22-29 Anion Gap 16 12-20 Blood Urea Nitrogen 14 9-16 Creatinine 0.91 0.5-1.4 Estimated Glomerular Filt Rate >60 Glucose Fasting 101 60-99 Calcium 9.0 8.4-10.2 Bilirubin Total 0.8 0.0-1.0 Aspartate Amino Transferase 23 5-31 Alanine Aminotransferase 23 0-3 1 Total Protein 7.1 6.5-8.0 Albumin Level 4.3 3.5-5.0 Alkaline Phosphatase 78 39-117 Lipid Panel 2023-03-09 Triglycerides 356 Cholesterol 265 LDL Cholesterol Calculated 145 HDL Cholesterol 49 Vitamin D 25-OH Total 2023-03-09 Vitamin D 25-OH Total 9.5 >30 UA ClnCatch+Micro w/rflx Cult 2023-03-09 Color Urine Yellow Appearance Urine Clear PH 5.5 5.0-9.0 Glucose Urine UA Negative Negative Urine Blood Trace Negative Specific [place] - Urine 1.020 1.0 05-1.025 Urine Protein Negative Neg-Trace Urine Ketones Negative Negative Nitrite Urine Negative Negative Leukocyte Esterase Urine Negative Neg ative RBC Urine 3-5 0-2 WBC Urine 0-5 0-5 Squamous Epithelial Cell Urine 3-5 0-2 Bacteria Urine Trace None Seen Hyaline Casts Urine 0-2 0-2 Bacterial Vaginosis Panel 2023-02-19 Trichomonas DNA Probe Negative Negati ve Gardnerella DNA Probe Positive Negati ve Sarah DNA Probe Negative Negative Urinalysis and Microscopic 2022-03-06 Color Urine STRAW Appearance Urine CLOUDY PH 5.5 5.0-8.0 Glucose Urine UA NEG NEG Urine Blood TRACE NEG Specific [place] - Urine >= 1.030 1.0 05-1.025 Urine Protein NEG NEG-TRACE Urine Ketones NEG NEG Nitrite Urine NEG NEG Leukocyte Esterase Urine NEG NEG RBC Urine 0-2 0 WBC Urine 0 0-4 Squamous Epithelial Cell Urine TRACE Amorphous Sediment Urine 4+ Bacteria Urine NONE Complete Blood Count Auto Diff 2022-03-06 White Blood Count 7.5 4.8-10.8 Red Blood Count 4.29 4.20-5.50 Hemoglobin 13.7 12.0-16.0 Hematocrit 40.2 37.0-47.0 Mean Corpuscular Volume 93.7 80.0 -98.0 Mean Corpuscular Hemoglobin 31.9 27.0-33.0 Mean Corpuscular HGB Conc 34.1 31 .0-35.0 Red Cell Distribution Width 12.0 11.0-16.0 Platelet Count 326 160-400 Mean Platelet Volume 10.4 9.4-12. 3 Neutrophils Percent Auto 63.7 45- 73 Imm Gran Pct Auto 0.3 0.0-0.4 Lymphocytes Percent Auto 29.1 20- 40 Monocytes Percent Auto 4.9 2-11 Eosinophils Percent Auto 1.2 0-4 Basophils Percent Auto 0.8 0-2 NRBC Pct Auto 0.0 0.0-0.2 Neutrophils Absolute Auto 4.8 2. 0-8.3 Imm Gran Abs Auto 0.02 0.00-0.03 Lymphocytes Absolute Auto 2.2 1. 2-4.9 Monocytes Absolute Auto 0.4 0.1- 1.2 Eosinophils Absolute Auto 0.1 0. 0-0.4 Basophils Absolute Auto 0.1 0.0- 0.2 NRBC Abs Auto 0.000 0.0-0.012 Comprehensive [place]. Panel Fast 2022-03-06 Sodium 137 135-145 Potassium 4.2 3.3-5.1 Chloride 105 96-108 Carbon Dioxide 24 22-29 Anion Gap 12 12-20 Blood Urea Nitrogen 17 9-16 Creatinine 0.77 0.5-1.4 Estimated Glomerular Filt Rate >60 Glucose Fasting 98 60-99 Calcium 9.2 8.4-10.2 Bilirubin Total 1.0 0.0-1.0 Aspartate Amino Transferase 19 5-31 Alanine Aminotransferase 14 0-3 1 Total Protein 7.1 6.5-8.0 Albumin Level 4.2 3.5-5.0 Alkaline Phosphatase 67 39-117 Lipid Panel 2022-03-06 Triglycerides 227 Cholesterol 254 LDL Cholesterol Calculated 155 HDL Cholesterol 54 Vitamin D 25-OH Total 2022-03-06 Vitamin D 25-OH Total 12.9 >30 [address] NG by PCR 2022-02-17 CT PCR NOT DETECTED Not Detect. NG PCR NOT DETECTED Not Detect. HPV E6/E7 RFLX MIRZA 16 18/45 2022-02-17 HPV mRNA E6/E7 rflx Not Detected Not Dete cted HPV E6 E7 ADD TNP HPV 16 RNA TNP HPV 18/45 RNA TNP Pap Smear 2022-02-17 cologuard colonoscopy 2021-10-24 US venous duplex LE LT 2021-10-09 COVID-19 ID NOW ([facility]Water) 2021-09-16 IDNOW Serial# [id number] COVID-19 Test Negative Negative COVID-19 Note See Note Complete Blood Count Auto Diff 2021-02-28 White Blood Count 7.1 4.8-10.8 Red Blood Count 4.41 4.20-5.50 Hemoglobin 13.6 12.0-16.0 Hematocrit 40.8 37-47 Mean Corpuscular Volume 92.5 80-9 8 Mean Corpuscular Hemoglobin 30.8 27.0-33.0 Mean Corpuscular HGB Conc 33.3 31 .0-35.0 Red Cell Distribution Width 12.2 11.0-16.0 Platelet Count 380 160-400 Mean Platelet Volume 10.0 9.4-12. 3 Neutrophils Percent Auto 65.4 45- 73 Imm Gran Pct Auto 0.3 0.0-0.4 Lymphocytes Percent Auto 27.7 20- 40 Monocytes Percent Auto 4.8 2-11 Eosinophils Percent Auto 1.1 0-4 Basophils Percent Auto 0.7 0-2 NRBC Pct Auto 0.0 0.0-0.2 Neutrophils Absolute Auto 4.6 2. 0-8.3 Imm Gran Abs Auto 0.02 0.00-0.03 Lymphocytes Absolute Auto 2.0 1. 2-4.9 Monocytes Absolute Auto 0.3 0.1- 1.2 Eosinophils Absolute Auto 0.1 0. 0-0.4 Basophils Absolute Auto 0.1 0.0- 0.2 NRBC Abs Auto 0.000 0.0-0.012 Comprehensive [place]. Panel Fast 2021-02-28 Sodium 141 135-145 Potassium 4.2 3.3-5.1 Chloride 107 96-108 Carbon Dioxide 26 22-29 Anion Gap 12 12-20 Blood Urea Nitrogen 17 9-16 Creatinine 0.88 0.5-1.4 Estimated Glomerular Filt Rate >60 Glucose Fasting 90 60-99 Calcium 8.9 8.4-10.2 Bilirubin Total 0.7 0.0-1.0 Aspartate Amino Transferase 18 5-31 Alanine Aminotransferase 13 0-3 1 Total Protein 7.2 6.5-8.0 Albumin Level 4.3 3.5-5.0 Alkaline Phosphatase 69 39-117 Lipid Panel 2021-02-28 Triglycerides 132 Cholesterol 215 LDL Cholesterol Calculated 140 HDL Cholesterol 49 Vitamin D 25-OH Total 2021-02-28 Vitamin D 25-OH Total 11.2 >30 Urinalysis and Microscopic 2021-02-28 Color Urine YELLOW Appearance Urine HAZY PH 6.0 5.0-8.0 Glucose Urine UA NEG NEG Urine Blood TRACE NEG Specific [place] - Urine >= 1.030 1.0 05-1.025 Urine Protein NEG NEG-TRACE Urine Ketones NEG NEG Nitrite Urine NEG NEG Leukocyte Esterase Urine TRACE NEG RBC Urine 0 0 WBC Urine 1-4 0-4 Squamous Epithelial Cell Urine 2+ Bacteria Urine 2+ Mucus Urine 2+ Urinalysis 2021-01-30 Color Urine YELLOW Appearance Urine CLEAR PH 6.0 5.0-8.0 Glucose Urine UA NEG NEG Urine Blood NEG NEG Specific [place] - Urine <= 1.005 1.0 05-1.025 Urine Protein NEG NEG-TRACE Urine Ketones NEG NEG Nitrite Urine NEG NEG Leukocyte Esterase Urine NEG NEG Urinalysis and Microscopic 2021-01-17 Color Urine YELLOW Appearance Urine CLEAR PH 5.5 5.0-8.0 Glucose Urine UA NEG NEG Urine Blood 1+ NEG Specific [place] - Urine >= 1.030 1.0 05-1.025 Urine Protein NEG NEG-TRACE Urine Ketones NEG NEG Nitrite Urine NEG NEG Leukocyte Esterase Urine NEG NEG RBC Urine 0-2 0 WBC Urine 0-2 0-4 Squamous Epithelial Cell Urine 1+ Bacteria Urine TRACE Mucus Urine 1+ Bone Density URINALYSIS + MICROSCOPIC 2020-07-26 COLOR YELLOW APPEARANCE,(UA) CLEAR SPECIFIC GRAVITY 1.025 1.005-1.025 LEUKOCYTES NEG NEG NITRITE NEG NEG PROTEIN,QUALITATIVE NEG NEG - TR SHANIQUA PH 5.5 5.0-8.0 URINE BLOOD 1+ NEG KETONES NEG NEG GLUCOSE NEG NEG MICROSCOPIC WBC 0-2 0-4 MICROSCOPIC RBC 0-2 0 EPITHELIAL CELLS 2+ BACTERIA TRACE LIPOPROTEIN FRACTIONATION (LIPID PANEL) 2020-07-26 CHOLESTEROL 197 TRIGLYCERIDE 389 HDL 47 LDL CALCULATED 73 FASTING BLOOD SUGAR (FBS, GLUCOSE) 2020-07-26 FASTING BLOOD SUGAR 98 60-99 BONE DENSITY DEXA 2020-08-06 HOLD-POSSIBLE COAGULATION 2020-06-17 HOLD-POSSIBLE COAGULATION SEE NOTE CHEM 7 PROFILE 2020-06-17 NA 136 135-145 K 4.2 3.3-5.1 CL 106 96-108 CO2 22 22-29 ANION GAP 12 12-20 GLUCOSE,RANDOM 129 60-115 BUN 11 9-16 CREATININE 0.80 0.5-1.4 ESTIMATED GFR >60 ESTIMATED CrCl 77.9 LIVER PROFILE 2020-06-17 PROTEIN, TOTAL 6.9 6.5-8.0 ALBUMIN 4.1 3.5-5.0 BILIRUBIN, TOTAL 0.4 0.0-1.0 BILIRUBIN, DIRECT 0.2 0.0-0.5 ALK. PHOS. 63 39-117 GOT 22 5-31 GPT 18 0-31 MAGNESIUM 2020-06-17 MAGNESIUM 2.0 1.6-2.6 CBC w DIFF 2020-06-17 WBC 6.4 4.8-10.8 RBC 4.29 4.20-5.50 HEMOGLOBIN 13.9 12.0-16.0 HEMATOCRIT 40.2 37-47 MCV 93.7 80-98 MCH 32.4 27.0-33.0 MCHC 34.6 31.0-35.0 PLATELET COUNT 304 160-400 RDW 12.1 11.0-16.0 NEUTROPHILS 74.6 45-73 LYMPHOCYTES 17.2 20-40 MONOCYTES 4.7 2-11 EOSINOPHILS 1.7 0-4 BASOPHILS 1.3 0-2 ABSOLUTE NEUTROPHIL COUNT 4.8 2. 0-8.3 ABSOLUTE LYMPHOCYTE COUNT 1.1 1. 2-4.9 ABSOLUTE MONOCYTE COUNT 0.3 0.1- 1.2 ABSOLUTE EOSINOPHIL COUNT 0.1 0. 0-0.4 ABSOLUTE BASOPHIL COUNT 0.1 0.0- 0.2 TROPONIN-I HIGH SENSITIVITY 2020-06-17 TROPONIN-I HIGH SENSITIVITY < 3.5 < 3.5-17.0 CT BRAIN NO CONTRAST 2020-06-17 MAMMOGRAM DIGITAL BILATERAL SCREEN 2019-12-18 HOLD-POSSIBLE COAGULATION 2018-12-13 HOLD-POSSIBLE COAGULATION SEE NOTE CHEM 7 PROFILE 2018-12-13 NA 139 135-145 K 4.2 3.3-5.1 CL 106 96-108 CO2 19 22-29 ANION GAP 18 12-20 GLUCOSE,RANDOM 96 60-115 BUN 9 9-16 CREATININE 0.92 0.5-1.4 ESTIMATED GFR >60 ESTIMATED CrCl 72.3 LIVER PROFILE 2018-12-13 PROTEIN, TOTAL 7.7 6.5-8.0 ALBUMIN 4.5 3.5-5.0 BILIRUBIN, TOTAL 0.3 0.0-1.0 BILIRUBIN, DIRECT < 0.2 0.0-0.5 ALK. PHOS. 69 39-117 GOT 27 5-31 GPT 17 0-31 LIPASE 2018-12-13 LIPASE 44 8-78 SALICYLATE 2018-12-13 SALICYLATE < 5.0 15-30 ACETAMINOPHEN (TYLENOL) 2018-12-13 ACETAMINOPHEN < 1 <30 ETHANOL 2018-12-13 ETHANOL 212 DRUGS OF ABUSE ([facility]) 2018-12-13 AMPHETAMINES, URINE NOT DETECTED NOT DETE CTD BARITURATES, URINE NOT DETECTED NOT DETEC TD BENZODIAZEPINES, URINE NOT DETECTED NOT D ETECTD COCAINE, URINE NOT DETECTED NOT DETECTD OPIATES, URINE NOT DETECTED NOT DETECTD PCP, URINE NOT DETECTED NOT DETECTD CANNABINOIDS, URINE (THC) NOT DETECTED NO T DETECTD CBC w DIFF 2018-12-13 WBC 7.7 4.8-10.8 ABSOLUTE NEUTROPHIL COUNT 5.2 2. 2-7.9 RBC 4.57 4.20-5.50 HEMOGLOBIN 14.6 12.0-16.0 HEMATOCRIT 41.7 37-47 MCV 91.4 80-98 MCH 32.0 27.0-33.0 MCHC 35.0 31.0-35.0 PLATELET COUNT 313 160-400 RDW 11.1 11.0-16.0 NEUTROPHILS 67.7 45-73 LYMPHOCYTES 26.0 20-40 MONOCYTES 3.9 2-11 EOSINOPHILS 1.4 0-4 BASOPHILS 1.0 0-2 MAMMOGRAM DIGITAL BILATERAL SCREEN 2018-09-29 LDL CHOLESTEROL (DIRECT) 2017-08-31 LDL CHOLESTEROL (DIRECT) 107 <10 0 LIPOPROTEIN FRACTIONATION (LIPID PANEL) 2017-08-31 CHOLESTEROL 242 TRIGLYCERIDE 432 HDL 47 LDL CALCULATED Test not performed LDL CHOLESTEROL (DIRECT) 2017-08-16 LDL CHOLESTEROL (DIRECT) 72 <10 0 LIPOPROTEIN FRACTIONATION (LIPID PANEL) 2017-08-16 CHOLESTEROL 290 TRIGLYCERIDE 1196 HDL 36 LDL CALCULATED Test not performed PROFILE,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
--- NOTE | 2023-06-01 15:59 | MHC.OFFVIS ---
Intake Vital Signs 06/01/23 16:00 Height 5 ft 2 in Weight 165 lb BMI 30.2 BP 122/70 Intake Visit Reasons: Discuss hysterectomy [facility] Required: No Allergies metronidazole Allergy (Intermediate, Verified 06/01/23 16:01) Rash HPI HPI Comments History of Present Illness Details The patient is presenting to discuss myomas and possible hysterectomy. The patient had endometrial polyp on endometrial pathology was scheduled for hysteroscopy D&C possible polypectomy/myomectomy insert history a loss copy to discuss further possibility of a hysterectomy. Last pelvic ultrasound done on 03/17/2023 showed the following: The uterus is anteverted and measures 8.8 x 3.7 x 4.7 cm. There is a 1.8 x 1.8 x 2.4 cm left intramural mid uterine lesion and a 2.6 x 2.5 x 2.2 cm right intramural fundal lesion, statistically favored to represent fibroids. The endometrium measures 0.8 cm in thickness without discrete focal lesion. A small nabothian cysts are noted in the cervix. The ovaries are normal in morphology with preserved flow at the moment of this examination. The right ovary measures 2.6 x 1.2 x 1.8 cm, 3 mL and the left ovary measures 2.7 x 1.3 x 1.4 cm, 2.6 mL. No free fluid. [facility] Medical History COVID-19 vaccine series completed History of COVID-19 No pertinent past medical history Surgical History Hx of section Hx of tubal ligation Family History Father Diabetes HTN (hypertension) Mother Diabetes HTN (hypertension) Asthma CHF (congestive heart failure) Maternal Aunt Stroke Social History Household Members: Spouse Household Members Other:: son Housing: House Are you a primary reproductive healthcare assistant to a significant other at home: No Do you presently have visiting nurse or other home services: No Alcohol intake: current Alcohol intake frequency: a few times a week Patient Tobacco Use Status: Former Tobacco user Current occupational status: employed Current occupation: [employer] Sexual orientation: Straight/Heterosexual Gender identity: Female Female Reproductive History Menstrual control method: permanent sterilization Total pregnancies: 4 Full term: 2 Number of Living Children: 4 Date of last pap smear: 02/18/22 Review of Systems Const All systems reviewed & are unremarkable except as noted in HPI and below Reports as per HPI and Reports no additional complaints GI Reports no additional complaints Reports no additional complaints Physical Exam Vital Signs: Last Vital Signs BP 122/70 06/01/23 16:00 BMI result Body Mass Index 30.2 Assessment & Plan Assessment & Plan (1) Uterine myoma: Code(s): D25.9 - Leiomyoma of uterus, unspecified Plan: Will order pelvic ultrasound compare the size of myomas and the options of treatment depending on the findings, if the patient decides to proceed with hysterectomy will cancel hysteroscopy/D&C/polypectomy otherwise if the patient decides to proceed with expectant management for myoma management will schedule hysteroscopy D&C possible polypectomy (2) Postmenopausal bleeding: Comment: Endometrial polyp on EMB pathology Code(s): N95.0 - Postmenopausal bleeding Plan: Instructions given the patient to schedule a 2 week ultrasound follow-up appointment, will discuss hysteroscopy D&C possible polypectomy/myomectomy versus hysterectomy. Questions answered, the patient verbalized understanding and agreed with the plan Orders: Orders US pelvic and transvaginal Today D25.9 - Leiomyoma of uterus, unspecified Coding Level of Care Code Est Pt Level 3 (93549) Diagnoses Uterine myoma D25.9 Postmenopausal bleeding N95.0
[2023-06-01 16:00] VITALS: BP 122/70; BMI 30.2
== END 2023-06-01 16:18 | disposition home or self-care (01) ==
LOC: HO.HWS 15:47
PROVIDERS: PCP Internal Medicine; Visit Provider Obstetrics & Gynecology
DX: D25.9 Leiomyoma of uterus, unspecified (principal); N95.0 Postmenopausal bleeding
CPT/HCPCS: 99213

== ENCOUNTER → 2023-06-01 15:47 | Outpatient (BNVA) | payer OTHER, SELFPAY | PROVIDERS: PCP Internal Medicine; Visit Provider Obstetrics & Gynecology ==

== ENCOUNTER 2023-06-18 15:41 | Outpatient (REF) | payer OTHER, SELFPAY ==
--- NOTE | ~2023-06-18 | US_ITS ---
EXAMINATION: US PELVIS CLINICAL INFORMATION: Leiomyoma of uterus. COMPARISON: Pelvic ultrasound 03/11/2023. TECHNIQUE: Ultrasound of the pelvis is performed using both transabdominal and transvaginal transducers along with Doppler. Transvaginal imaging is performed due to inadequate visualization transabdominally. FINDINGS: Uterus: The uterus is anteverted and measures 10.5 x 4.5 x 5.7 cm. Uterine volume 141 mL. The double wall endometrial thickness is 14 mm. The uterus is smooth in contour and has normal myometrial echogenicity. 2.1 x 2.0 x 1.5 cm fundal intramural fibroid, previously measuring 2.6 x 2.5 x 2.2 cm. 1.0 x 1.0 x 1.0 cm posterior lower uterine segment intramural fibroid previously measuring 1.8 x 1.8 x 2 x 4 cm. Adnexa: Both ovaries are visualized. There is normal color flow to the adnexa. There is no ovarian torsion. There is no pelvic ascites or fluid collection. Right ovary measures 2.5 x 1.5 x 1.6 cm. Volume 3.1 mL. Left ovary measures 2.6 x 1.2 x 1.8 cm. Volume 2.2 mL. US/US pelvic and transvaginal IMPRESSION: The endometrial stripe is increasingly thickened measuring 1.4 cm (previously 0.8 cm). Recommend endometrial biopsy. Previously seen fibroids measure slightly smaller on today's exam compared to 03/11/2023.
== END 2023-06-18 15:42 | disposition home or self-care (01) ==
LOC: HO.US 15:41
PROVIDERS: PCP Internal Medicine; Visit Provider Obstetrics & Gynecology
DX: D25.9 Leiomyoma of uterus, unspecified (principal)
CPT/HCPCS: 76830; 76856

== ENCOUNTER 2023-07-30 11:35 | Outpatient (REF) | payer OTHER, SELFPAY ==
[2023-07-30 11:57] LABS: Appearance Urine Clear; Color Urine Yellow; Glucose Urine UA Negative (Negative); Leukocyte Esterase Urine Negative (Negative); Nitrite Urine Negative (Negative); PH 5.5 (5.0-9.0); UMIC TRIGGER UACC YES; Urine Blood Moderate (2+) (Negative); Urine Ketones Negative (Negative); Urine Protein Negative (Neg-Trace)
[2023-07-30 12:16] LABS: Bacteria Urine None Seen (None Seen); Hyaline Casts Urine 0-2 /LPF (0-2); RBC Urine 0-2 /HPF (0-2); WBC Urine 0-5 /HPF (0-5)
== END 2023-07-30 11:36 | disposition home or self-care (01) ==
LOC: HO.LNP 11:35
PROVIDERS: Visit Provider Internal Medicine
DX: N39.0 Urinary tract infection, site not specified (principal)
CPT/HCPCS: 81001

== ENCOUNTER 2023-08-06 13:29 | Outpatient (REF) | payer OTHER, SELFPAY ==
--- NOTE | ~2023-08-06 | US_ITS ---
EXAMINATION: US PELVIS AND TRANSVAGINAL CLINICAL INFORMATION: Benign neoplasm of connective at and other soft tissue, unspecified Fibroid, 6 month follow-up for stability LMP, ongoing since one week ago COMPARISON: Pelvic ultrasound 06/18/2023, 03/11/2023 TECHNIQUE: Ultrasound of the pelvis is performed using both transabdominal and transvaginal transducers along with Doppler. Transvaginal imaging is performed due to inadequate visualization transabdominally. FINDINGS: Uterus: The uterus is anteverted and measures 10.4 x 4.2 x 5.2 cm. 1.4 x 1.2 x 1.8 posterior lower uterine segment intramural fibroid measured 1.0 x 1.0 x 1.0 cm on 06/21/2023 and 1.8 x 1.8 x 2.4 cm on 03/17/2023. Difference in size is likely technical in origin. 2.3 x 2.7 x 2.1 cm fundal fibroid previously measured 2.1 x 2.0 x 1.5 cm on 06/21/2023 and 2.6 x 2.5 x 2.2 cm on 03/17/2023. Difference in size is likely technical in origin. The endometrial thickness is 1.1 CM Adnexa: Both ovaries are visualized. There is normal color flow to the adnexa. There is no ovarian torsion. There is no pelvic ascites or fluid collection. Right ovary measures 2.4 x 1.1 x 1.6 cm. Volume 2.2 mL. Left ovary measures 2.5 x 1.3 x 1.9 cm. Volume 3.2 mL. 1.6 x 1.4 x 1.7 cm dominant follicle, normal finding. No follow-up imaging of this finding is recommended. US/US pelvic and transvaginal IMPRESSION: 1. 2 uterine fibroids. Difference in size compared to prior studies is likely technical in origin. 2. Normal ovaries
== END 2023-08-06 13:30 | disposition home or self-care (01) ==
LOC: HO.HMGCX 13:29
PROVIDERS: PCP Internal Medicine; Visit Provider Advanced Practice Midwife
DX: D21.9 Benign neoplasm of connective and other soft tissue, unspecified (principal)
CPT/HCPCS: 76830; 76856

== ENCOUNTER 2023-08-16 12:26 | Outpatient (AMB) | payer OTHER, SELFPAY ==
[2023-08-16 12:29] VITALS: BP 122/74; BMI 30.2
--- NOTE | 2023-08-16 12:29 | A.OFFVIS_ITS ---
Intake Vital Signs 08/16/23 12:29 Height 5 ft 2 in Weight 165 lb BMI 30.2 BP 122/74 Intake Visit Reasons: US Follow up/DO NOT RS [employer] Administrator Required: No Bagman/Woman: Bagman/Woman Present Allergies metronidazole Allergy (Intermediate, Verified 08/16/23 12:30) Rash Is last menstrual period known: Yes Last menstrual period: 09/19/20 Post menopausal: No Patient : No Do you need a note to return to daycare/school/sports/work: Yes (for surgery on wednesday) HPI HPI Comments History of Present Illness Details Presenting for pelvic ultrasound follow-up done recently which showed the following: Uterus: The uterus is anteverted and measures 10.4 x 4.2 x 5.2 cm. 1.4 x 1.2 x 1.8 posterior lower uterine segment intramural fibroid measured 1.0 x 1.0 x 1.0 cm on 06/21/2023 and 1.8 x 1.8 x 2.4 cm on 03/17/2023. Difference in size is likely technical in origin. 2.3 x 2.7 x 2.1 cm fundal fibroid previo usly measured 2.1 x 2.0 x 1.5 cm on 06/21/2023 and 2.6 x 2.5 x 2.2 cm on 03/17/2023. Difference in size is likely technical in origin. The endometrial thickness is 1.1 CM Adnexa: Both ovaries are visualized. There is normal color flow to the adnexa. There is no ovarian torsion. There is no pelvic ascites or fluid collection. Right ovary measures 2.4 x 1.1 x 1.6 cm. Volume 2.2 mL. Left ovary measures 2.5 x 1.3 x 1.9 cm. Volume 3.2 mL. 1.6 x 1.4 x 1.7 cm dominant follicle, normal finding. No follow-up imaging of this finding is recommended. US/US pelvic and transvaginal IMPRESSION: 1. 2 uterine fibroids. Difference in siz e compared to prior studies is likely technical in origin. 2. Normal ovaries The patient still complaining of vaginal bleeding on and off, endometrial biopsy pathology done in 04/13 showed: Endometrium, biopsy: - Fragments with features of endometrial polyp. - Background inactive endometrium; no at ypia or hyperplasia identified Last co testing in 02/11 was negative [facility] Medical History No pertinent past medical history COVID-19 vaccine series completed History of COVID-19 Surgical History Hx of section Hx of tubal ligation Family History Father Diabetes HTN (hypertension) Mother Diabetes HTN (hypertension) Asthma CHF (congestive heart failure) Maternal Aunt Stroke Social History Household Members: Spouse Household Members Other:: son Housing: House Are you a primary primary care provider to a significant other at home: No Do you presently have visiting nurse or other home services: No Alcohol intake: current Alcohol intake frequency: a few times a week Patient Tobacco Use Status: Former Tobacco user Current occupational status: employed Current occupation: [employer] Sexual orientation: Straight/Heterosexual Gender identity: Female Female Reproductive History Menstrual Date of last menstrual period: 09/19/20 control method: permanent sterilization Total pregnancies: 2 Full term: 2 Date of last pap smear: 02/18/22 (negative) Review of Systems Card Reports as per HPI and Reports no additional complaints Resp Reports as per HPI and Reports no additional complaints GI Reports as per HPI and Reports no additional complaints Reports as per HPI Physical Exam Vital Signs: Last Vital Signs BP 122/74 08/16/23 12:29 BMI result Body Mass Index 30.2 Const General: cooperative, healthy appearing and comfortable Chest Chest palpation & inspection: normal inspection of the chest and normal palpation of entire chest wall Breast/axilla inspection: normal inspection of the breasts and normal inspection of the axillae Breast/axilla palpation: normal palpation of the breasts, normal palpation of the axillae and no axillary lymphadenopathy Resp Effort & Inspection: normal respiratory effort Auscultation: clear to auscultation bilaterally Percussion: percussion normal Cardio Palpation: normal PMI Rate: regular rate Rhythm: regular rhythm Heart sounds: no murmurs and no rubs Peripheral pulses: Peripheral pulses 2+ throughout GI Inspection: Yes normal to inspection Palpation (GI): Soft to palpation, nontender, no guarding, not rigid and No hepatosplenomegaly present Percussion: Yes normal to percussion Auscultation: normal bowel sounds Rectal Exam - Female: deferred Assessment & Plan Assessment & Plan (1) Uterine myoma: Code(s): D25.9 - Leiomyoma of uterus, unspecified Plan: Discussed with the patient the findings on pelvic ultrasound & the risk of myosarcoma; discussed with the patient the options of treatment including expectant management versus hysterectomy; the pros and cons, risks benefits of each approach were discussed with the patient including the fact that in cases of myosarcoma, surgical treatment can lead to early diagnosis and positively affects the prognosis; after further discussion, the patient decided to proceed with expectant management. Will repeat pelvic ultrasound in 6 month Instructions given to patient to call in case any of the following occurs: pressure symptoms, abnormal uterine bleeding, pelvic pain; and to schedule a 6 months office follow-up appointment for reassessment an ultrasound follow-up . All questions answered, the patient verbalized understanding and agreed with the plan . (2) Ovarian cyst: Code(s): N83.209 - Unspecified ovarian cyst, unspecified side Plan: Discussed with the patient the ovarian cyst by ultrasound. Discussed with the patient the Ultrasound findings, the main limitation of transvaginal ultrasonography alone as a diagnostic tool to distinguish benign from malignant masses relates to its lack of specificity and low positive predictive value for cancer. The differential diagnosis discussed with the patient includes the following but not limited to: benign and malignant gynecological and non- gynecological causes. Serum tumor marker CA 125 wnl Discussed with the patient that CA 125 is a protein associated with epithelial ovarian malignancies, but also frequently expressed at lower levels by nonmalignant tissue. Normal CA 125 levels can be found in ovarian cancer patients. Elevation of CA 125 levels may occur in nonmalignant gynecologic conditions, and in non-gynecologic cancers, It is most useful in postmenopausal women and in identifying non mucinous epithelial cancer. The CA 125 level is elevated in 80% of patients with epithelial ovarian cancer but in only 50% of patients with stage I disease. The overall sensitivity of CA 125 testing in distinguishing benign from malignant adnexal masses reportedly ranges from 61% to 90%; specificity ranges from 71% to 93%, positive predictive value ranges from 35% to 91%, and negative predictive value ranges from 67% to 90%. Discussed with the patient options of treatment , in case CA 125 is not elevated, including laparoscopy ovarian salpingo- oophorectomy vs. expectant management with repeat US in repeating pelvic US in 6 months from previous US. If the ovarian cyst is persistent larger and / or changes in Ultrasound appearance & became complex looking, or higher CA 125 will refer to gynecologic Oncology. All pros, cons, risks and benefits of each approach were discussed with the patient including but not limited to a delay in the diagnosis and treatment of ovarian cancer affecting the prognosis; The patient decided to go ahead with expectant management. All questions were answered & the patient verbalized understanding and agreed with the plan (3) Postmenopausal bleeding: Comment: Endometrial polyp on EMB pathology Code(s): N95.0 - Postmenopausal bleeding Plan: Discussed with the patient the results of the ultrasound showing 11 cm endometrial stripe, pathology showing features of endometrial polyp, recommended hysteroscopy D&C possible polypectomy/myomectomy. Discussed with the patient the procedure , all benefits and risks including but not limited to inability to complete the procedure , bleeding, infection, possible need for blood tr ansfusion with all its risk ( HIV,syphilis, Hepatitis, anaphylaxis shock, others..), injury to bladder, rectum, possible need for laparoscopy/laparotomy or hysterectomy. The patient verbalized understanding and signed the consent. Instructions given the patient to schedule a 2 week postoperative appointment Orders: Orders US pelvic and transvaginal Today D25.9 - Leiomyoma of uterus, unspecified, N83.209 - Unspecified ovarian cyst, unspecified side CA-125 Today N83.209 - Unspecified ovarian cyst, unspecified side Coding Level of Care Code [facility] New Pt Level 3 (51701) Diagnoses Uterine myoma D25.9 Ovarian cyst N83.209 Postmenopausal bleeding N95.0
== END 2023-08-16 12:58 | disposition home or self-care (01) ==
PROVIDERS: PCP Internal Medicine; Visit Provider Obstetrics & Gynecology
DX: D25.9 Leiomyoma of uterus, unspecified (principal); N83.209 Unspecified ovarian cyst, unspecified side; N95.0 Postmenopausal bleeding
CPT/HCPCS: 99213

== ENCOUNTER → 2023-08-16 12:26 | Outpatient (BNVA) | payer OTHER, SELFPAY | PROVIDERS: PCP Internal Medicine; Visit Provider Obstetrics & Gynecology ==

== ENCOUNTER 2023-08-27 09:25 | Day surgery (SDC) | payer OTHER, SELFPAY ==
[2023-08-25 12:25] VITALS: BMI 30.2
--- NOTE | 2023-08-27 09:10 | MHC.SHP ---
Pre-Procedural Eval Section A Date of Service: 08/27/23 The patient is an INPATIENT: No Changes since office visit: No Cold of Flu in the past 2 weeks, No New Medical Problems, No Changes in Medication and No Patient answered all questions The History & Physical has been completed within 30 days and I have reviewed it.: Yes Section B Chief Complaint: Postmenopausal bleeding Allergies: Allergies Allergy/AdvReac Type Severity Reaction Status Date / Time metronidazole Allergy Intermediate Rash Verified 08/16/23 12:30 Plan Diagnosis/Plan: Unchanged I have reviewed the history and physical and performed a pertinent physical examination on my patient. No changes have occurred unless specified. Time Spent With Patient Time: Total time managing care of this patient today ____ minutes.
[2023-08-27 10:06] VITALS: BP 146/97; PULSE 83; RESP 18; TEMP 36.7; O2SAT 96
--- NOTE | 2023-08-27 10:19 | HO.ANESPROP2 ---
[facility] Active Problems Active Problems: All Active Problems (Updated 08/16/23 @ 12:36 by Seun Cloud MD) Ovarian cyst (Acute) Uterine myoma (Acute) Postmenopausal bleeding (Acute) Fibroids (Acute) Right ankle sprain (Acute) Encounter for screening mammogram for malignant neoplasm of breast (Acute) Hot flashes (Acute) Encounter for annual routine gynecological examination (Acute) Patellofemoral disorder of left knee (Acute) Sprain of knee (Acute) Past Medical History Medical History No pertinent past medical history COVID-19 vaccine series completed History of COVID-19 Family History Family History Father Diabetes HTN (hypertension) Mother Diabetes HTN (hypertension) Asthma CHF (congestive heart failure) Maternal Aunt Stroke Family history of problems with anesthesia: No Surgical History Surgical History Hx of section Hx of tubal ligation History of Problems with Anesthesia: No Social History Social History Household Members: Spouse Household Members Other:: son Housing: House Are you a primary career development counselor to a significant other at home: No Do you presently have visiting nurse or other home services: No Alcohol intake: current Alcohol intake frequency: a few times a week Patient Tobacco Use Status: Former Tobacco user Are you DNR?: No Advance Directives: No Advance Directives Information Provided: Yes Nutrition Risks: No Nutritional Risk Current occupational status: employed Current occupation: [employer] Sexual orientation: Straight/Heterosexual Gender identity: Female Meds Allergies Allergy/AdvReac Type Severity Reaction Status Date / Time metronidazole Allergy Intermediate Rash Verified 08/27/23 10:13 Active Medications: Current Medications Lactated Ringer's (Lr) 1,000 mls @ 80 mls/hr IVCONT .[id number] CARINA Last Admin: 08/27/23 09:55 Dose: 80 mls/hr Home Medications Medication Instructions Recorded Confirmed Last Taken Type acetaminophen 650 mg 1,300 mg PO BID PRN pain 02/19/23 08/27/23 Unknown History tablet,extended release Exam Exam Date and Time: August 27, 2023 1019 Height,Weight and Vital Signs: Height 5 ft 2 in Weight 74.843 kg Last Vital Signs Temp 98.1 F 08/27/23 10:06 Pulse 83 08/27/23 10:06 Resp 18 08/27/23 10:06 BP 146/97 H 08/27/23 10:06 Pulse Ox 96 08/27/23 10:06 O2 Del Method Room Air 08/27/23 10:06 Airway Mallampati Class: II (missing a couple lateral, nothing loose) TM Dist: >3cm Neck ROM: Full Heart: rrr Lungs: cta Assessment and Plan Assessment Anesthesia Assessment: Anesthesia Plan Discussed and Chart Reviewed Final Anesthetic Review Family History of Problems with Anesthesia: No History of Problems with Anesthesia: No NPO: Yes ASA Class: II Final Preanesthetic Review: No Changes in Pt Med Stat, Meds/Allgs Chart Reviewed and Consent Obtained/Reviewed Patient Risk: Intermediate Procedure Risk: Intermediate Anesthetic Plan Anesthetic Plan: GA Disposition: Standard PACU
--- NOTE | 2023-08-27 11:51 | PM.OP ---
Brief Operative Note Date of Service: 08/27/23 Pre-op diagnosis: Postmenopausal bleeding, thickened endometrium by ultrasound Post-op diagnosis: same (Endometrial polyp) Procedure: Hysteroscopy D&C, Polypectomy Surgeon: Seun Cloud MD Anesthesia: GLMA Was an Bat Carrier used for this Procedure?: No Estimated blood loss (mL): 0 Pathology: other (Endometrial Scrapping. Polyp) Condition: stable Disposition: PACU
--- NOTE | 2023-08-27 11:52 | W.PM.OPN ---
Operative Note Operative Note Date of Service: 08/27/23 Narrative: Preop Diagnosis: Postmenopausal bleeding, thickened endometrium by US Operation: Diagnostic Hysteroscopy, Dilataion & Curettage and polypectomy Post Op Diagnosis: Endometrial Polyp QBL: Minimal Anesthesia: GLMA Surgeon: Seun Cloud MD Traffic Agent: None Complication: None Pathology: Endometrial Scrapings, Endometrial polyp Procedure: The patient was put in the dorsal lithotomy position, scrubbed, and draped in the usual manner. A sterile speculum was inserted in the patient's vagina. The anterior lip of the cervix was grasped with a single tooth tenaculum. The cervix was dilated up to 5 mm, then the scope was inserted in the patient's uterus. Inspection revealed endometrial polyp. The Myosure Reach device was used; it was introduced through the operative channel and polypectomy done with no complications. The scope was then taken out from the uterine cavity, sharp curettings was carried on with minimal to moderate amount of tissues retrieved. At the end of the procedure, all instruments were taken out of the patient uterine and vaginal cavity. The single tooth tenaculum was removed and homeostasis was assured using pressure,. The patient tolerated the procedure well and was transferred to the PACU in a stable condition.
[2023-08-27 11:59] VITALS: BP 155/101; PULSE 83; RESP 16; TEMP 36.1; O2SAT 95
[2023-08-27 12:04] VITALS: BP 157/103; PULSE 67; RESP 16; O2SAT 95
[2023-08-27 12:09] VITALS: BP 157/100; PULSE 66; RESP 16; O2SAT 95
[2023-08-27 12:14] VITALS: BP 147/89; PULSE 73; RESP 16; TEMP 36.3; O2SAT 96
[2023-08-27 12:29] VITALS: BP 147/88; PULSE 74; RESP 16; TEMP 36.6; O2SAT 97
== END 2023-08-27 12:42 | disposition home or self-care (01) ==
PROVIDERS: PCP Internal Medicine; Visit Provider Obstetrics & Gynecology
PROC: 0UDB8ZZ Extraction of Endometrium, Via Natural or Artificial Opening Endoscopic (ICD-10-PCS; CPT 58558; principal; 2023-08-27 11:30)
DX: N95.0 Postmenopausal bleeding (principal); N84.0 Polyp of corpus uteri; N83.209 Unspecified ovarian cyst, unspecified side; D25.9 Leiomyoma of uterus, unspecified; Z98.51 Tubal ligation status; Z88.8 Allergy status to other drugs, medicaments and biological substances; Z86.16 Personal history of COVID-19; Z87.891 Personal history of nicotine dependence
CPT/HCPCS: 58558; 88305; J3010

== ENCOUNTER → 2023-08-27 09:25 | Outpatient (BNV) | payer OTHER, SELFPAY | PROVIDERS: PCP Internal Medicine; Visit Provider Obstetrics & Gynecology | DX: N95.0 Postmenopausal bleeding (principal) | CPT/HCPCS: 58558 ==

== ENCOUNTER 2023-09-03 08:23 | Outpatient (AMB) | payer OTHER, SELFPAY ==
--- OUTSIDE RECORDS SUMMARY | 2023-09-03 08:25 | XMS_ITS | Patient Health Record ---
Author Name Unknown Organization Diego Mayes MD Address [address] [place], [place] [id number] Care Team Providers Care Manager Clinical Pharmacy Name Role Phone Diego Mayes Primary Care Provider [phone] ALLERGIES Allergen (clinical drug ingredient) Drug/Non Drug Allergy documented on EMR Reaction Allergy Type Onset Date Status metronidazole Metronidazole rash Drug Allergy Active RESULTS Component Value Reference Range Notes Bacterial Vaginosis Panel Reviewed date:02/21/2023 05:21:18 PM Interpretation: Performing Lab:[facility], [address] [place] [phone] Notes/Report: Trichomonas DNA Probe Negative Negative Gardnerella DNA Probe Positive Negative Sarah DNA Probe Negative Negative Complete Blood Count Auto Di ff Reviewed date:03/09/2023 01:59:57 PM Interpretation: Performing Lab:[facility], [address] [place] [phone] Notes/Report: White Blood Count 7.6 4.8-10.8 X10*3/uL Red Blood Count 4.76 4.20-5.50 X10*6/uL Hemoglobin 15.3 12.0-16.0 g/dl Hematocrit 44.6 37.0-47.0 % Mean Corpuscular Volume 93.7 80.0-98.0 fL Mean Corpuscular Hemoglobin 32.1 27.0-33.0 pg Mean Corpuscular HGB Conc 34.3 31.0-35.0 g/dl Red Cell Distribution Width 12.1 11.0-16.0 % Platelet Count 368 160-400 X10*3/uL Mean Platelet Volume 9.8 9.4-12.3 fL Neutrophils Percent Auto 66.7 45-73 % Imm Gran Pct Auto 0.4 0.0-0.4 % Lymphocytes Percent Auto 24.8 20-40 % Monocytes Percent Auto 5.9 2-11 % Eosinophils Percent Auto 1.4 0-4 % Basophils Percent Auto 0.8 0-2 % NRBC Pct Auto 0.0 0.0-0.2 /100WBC Neutrophils Absolute Auto 5.1 2.0-8.3 x10*3/uL Imm Gran Abs Auto 0.03 0.00-0.03 X10*3/uL Lymphocytes Absolute Auto 1.9 1.2-4.9 X10*3/uL Monocytes Absolute Auto 0.5 0.1-1.2 X10*3/uL Eosinophils Absolute Auto 0.1 0.0-0.4 X10*3/uL Basophils Absolute Auto 0.1 0.0-0.2 X10*3/uL NRBC Abs Auto 0.000 0.0-0.012 X10*3/uL Comprehensive Counselor. Panel Fa st Reviewed date:03/09/2023 04:26:40 PM Interpretation: Performing Lab:[facility], [address] [place] [phone] Notes/Report: Sodium 138 135-145 mmol/L Potassium 3.9 3.3-5.1 mmol/L Chloride 102 96-108 mmol/L Carbon Dioxide 24 22-29 mmol/L Anion Gap 16 12-20 Blood Urea Nitrogen 14 9-16 mg/dL Creatinine 0.91 0.5-1.4 mg/dL Estimated Glomerular Filt Rate > 60 NOTE: For -[place] individuals, multiply the result by 1.210. Chronic Kidney Disease: Estimated GFR < 60 mL/min/1.73m2 Severe Kidney Disease: Estimated GFR < 15 mL/min/1.73m2 Glucose Fasting 101 60-99 mg/dL A fasting glucose from 100-125 mg/dl is considered impaired (pre-diabetes). Calcium 9.0 8.4-10.2 mg/dL Bilirubin Total 0.8 0.0-1.0 mg/dL Aspartate Amino Transferase 23 5-31 U/L Alanine Aminotransferase 23 0-31 U/L Total Protein 7.1 6.5-8.0 g/dL Albumin Level 4.3 3.5-5.0 g/dL Alkaline Phosphatase 78 39-117 U/L Lipid Panel Reviewed date:03/09/2023 01:59:32 PM Interpretation: Performing Lab:[facility], [address] [place] [phone] Notes/Report: Triglycerides 356 Desirable Triglyceride: less than 150 mg/dL Borderline High Triglyceride 150-199 mg/dL High Triglyceride: 200-499 mg/dL Very High Triglyceride: greater than or equal to 5OO mg/dL Cholesterol 265 Desirable Cholesterol: less than 200 mg/dL Borderline High Cholesterol: 200-239 mg/dL High Cholesterol: greater than 239 mg/dL LDL Cholesterol Calculated 145 Desirable LDL: less than 100 mg/dL Near Optimal/Above Optimal LDL: 110-129 mg/dL Borderline High LDL: 130-159 mg/dL High LDL: 160-189 mg/dL Very High LDL: greater than or equal to 190 mg/dL HDL Cholesterol 49 Desirable HDL: greater than 40 mg/dL Note: This HDL assay may give artificially low results in patients with liver disease. Vitamin D 25-OH Total Reviewed date:03/12/2023 10:19:44 AM Interpretation:see back 03-12-2023 Performing Lab:[facility], [address] [place] [phone] Notes/Report: Vitamin D 25-OH Total 9.5 >30 ng/mL Health Based Reference Values* < 20 ng/mL Deficient 20-30 ng/mL Insufficient > 30 ng/mL Sufficient *Tanya ELIZABETH. N Engl J Med. 2007;357:266-280 Care must be taken in interpreting Vitamin D results from different laboratories and methodologies. Published data demonstrated that results from patients undergoing hemodialysis may show a negative bias when tested with various automated 25-OH vitamin D assays when compared to LC-MS/MS. When testing samples from patients whose predominant form of Vitamin D is Vitamin D2, such as patients receiving Vitamin D2 supplementation, results that are subtherapeutic should be confirmed with another method such as LC-MS/MS. UA ClnCatch+Micro w/rflx Cul t Reviewed date:03/09/2023 02:06:06 PM Interpretation: Performing Lab:[facility], [address] [place] [phone] Notes/Report: Urine, Clean Catch Color Urine Yellow Appearance Urine Clear PH 5.5 5.0-9.0 Glucose Urine UA Negative Negative mg/dL Urine Blood Trace Negative Specific [place] - Urine 1.020 1.005-1.025 Urine Protein Negative Neg-Trace mg/dL Urine Ketones Negative Negative mg/dL Nitrite Urine Negative Negative Leukocyte Esterase Urine Negative Negative RBC Urine 3-5 0-2 /HPF WBC Urine 0-5 0-5 /HPF Squamous Epithelial Cell Urine 3-5 0-2 /HPF Bacteria Urine Trace None Seen Hyaline Casts Urine 0-2 0-2 /LPF Pathology Reviewed date:03/28/2023 08:36:24 PM Interpretation: Performing Lab:[facility], [address] [place] [phone] Notes/Report: Urine Culture Reviewed date:04/09/2023 02:48:53 PM Interpretation: Performing Lab:[facility], [address] [place] [phone] Notes/Report: Urine Culture Report Result Urine Culture 10,000 to 50,000 cfu/ml Urine Culture Mixed bacterial sharee a characteristic of Urine Culture urogenital contamination. UA ClnCatch+Micro w/rflx Cul t Reviewed date:04/20/2023 11:32:44 AM Interpretation:see back 04-20-23 Performing Lab:[facility], [address] [place] [phone] Notes/Report: Urine, Clean Catch Color Urine Yellow Appearance Urine Cloudy PH 5.5 5.0-9.0 Glucose Urine UA Negative Negative mg/dL Urine Blood Small (1+) Negative Specific [place] - Urine 1.020 1.005-1.025 Urine Protein Negative Neg-Trace mg/dL Urine Ketones 15 Negative mg/dL Nitrite Urine Negative Negative Leukocyte Esterase Urine Negative Negative RBC Urine 0-2 0-2 /HPF WBC Urine 6-10 0-5 /HPF Squamous Epithelial Cell Urine >20 0-2 /HPF Bacteria Urine 4+ None Seen Hyaline Casts Urine 3-5 0-2 /LPF Urine Culture Reviewed date:05/15/2023 04:54:02 PM Interpretation: Performing Lab:[facility], [address] [place] [phone] Notes/Report: Urine Culture Report Result Urine Culture < 10,000 cfu/ml UA ClnCatch+Micro w/rflx Cul t Reviewed date:05/14/2023 04:39:28 PM Interpretation: Performing Lab:[facility], [address] [place] [phone] Notes/Report: Urine, Clean Catch Color Urine Yellow Appearance Urine Cloudy PH 5.5 5.0-9.0 Glucose Urine UA Negative Negative mg/dL Urine Blood Negative Negative Specific [place] - Urine 1.025 1.005-1.025 Urine Protein Negative Neg-Trace mg/dL Urine Ketones Trace Negative mg/dL Nitrite Urine Negative Negative Leukocyte Esterase Urine Negative Negative RBC Urine 0-2 0-2 /HPF WBC Urine 6-10 0-5 /HPF Squamous Epithelial Cell Urine 11-20 0-2 /HPF Bacteria Urine 3+ None Seen Hyaline Casts Urine 0-2 0-2 /LPF UA ClnCatch+Micro w/rflx Cul t Reviewed date:08/05/2023 07:00:09 AM Interpretation: Performing Lab:[facility], [address] [place] [phone] Notes/Report: Urine, Clean Catch Color Urine Yellow Appearance Urine Clear PH 5.5 5.0-9.0 Glucose Urine UA Negative Negative mg/dL Urine Blood Moderate (2+) Negative Specific [place] - Urine 1.020 1.005-1.025 Urine Protein Negative Neg-Trace mg/dL Urine Ketones Negative Negative mg/dL Nitrite Urine Negative Negative Leukocyte Esterase Urine Negative Negative RBC Urine 0-2 0-2 /HPF WBC Urine 0-5 0-5 /HPF Squamous Epithelial Cell Urine 3-5 0-2 /HPF Bacteria Urine None Seen None Seen Hyaline Casts Urine 0-2 0-2 /LPF US pelvic and transvaginal Reviewed date:08/10/2023 12:31:09 PM Interpretation: Performing Lab: Notes/Report: [facility] [address] [place] [address] [place] [id number] Ultrasound Report Signed Patient: Gloria Garcia MR#: [id number] : 1970 Acct:[id number] Age/Sex: 53 / F ADM Date: 08/06/23 Loc: HO.HMGCX Attending Dr: Alma Rosa Gaspar CNM Ordering Physician: Alma Rosa Gaspar CNM Date of Service: 08/06/23 Procedure(s): US pelvic and transvaginal Accession Number(s): [id number] cc: Diego Mayes MD; Alma Rosa Gaspar CNM EXAMINATION: US PELVIS AND TRANSVAGINAL CLINICAL INFORMATION: Benign neoplasm of connective at and other soft tissue, unspecified Fibroid, 6 month follow-up for stability LMP, ongoing since one week ago COMPARISON: Pelvic ultrasound 06/18/2023, 03/11/2023 TECHNIQUE: Ultrasound of the pelvis is performed using both transabdominal and transvaginal transducers along with Doppler. Transvaginal imaging is performed due to inadequate visualization transabdominally. FINDINGS: Uterus: The uterus is anteverted and measures 10.4 x 4.2 x 5.2 cm. 1.4 x 1.2 x 1.8 posterior lower uterine segment intramural fibroid measured 1.0 x 1.0 x 1.0 cm on 06/21/2023 and 1.8 x 1.8 x 2.4 cm on 03/17/2023. Difference in size is likely technical in origin. 2.3 x 2.7 x 2.1 cm fundal fibroid previously measured 2.1 x 2.0 x 1.5 cm on 06/21/2023 and 2.6 x 2.5 x 2.2 cm on 03/17/2023. Difference in size is likely technical in origin. The endometrial thickness is 1.1 CM Adnexa: Both ovaries are visualized. There is normal color flow to the adnexa. There is no ovarian torsion. There is no pelvic ascites or fluid collection. Right ovary measures 2.4 x 1.1 x 1.6 cm. Volume 2.2 mL. Left ovary measures 2.5 x 1.3 x 1.9 cm. Volume 3.2 mL. 1.6 x 1.4 x 1.7 cm dominant follicle, normal finding. No follow-up imaging of this finding is recommended. US/US pelvic and transvaginal IMPRESSION: 1. 2 uterine fibroids. Difference in size compared to prior studies is likely technical in origin. 2. Normal ovaries Dictated By: Theresa Luo MD Signed By: <Electronically signed by Theresa Luo MD in OV> 08/10/23 0848 DD/ 1419 TD/TT: Heating Worker: Pathology Reviewed date:09/01/2023 10:11:28 AM Interpretation: Performing Lab:[facility], [address] [place] [phone] Notes/Report: REASON FOR REFERRAL Reason Acute midline lower back pain with sciatica please eval and treat for Physical Therapy Diagnosis 1 Back pain (M54.9) Referral Organization Diego Mayes MD Referring Provider First Name Diego Referring Provider Last Name Sugey Referring Provider Speciality Internal M edicine Referred Provider [facility] Referred Provider Specialty Physical The rapist General Notes Marisa So 02:59:38 PM EDT >patient will be making her own appt Referral Priority Routine MEDICATIONS Medication SIG (Take, Route, Frequency, Duration) Notes Start Date End Date Status Vitamin D3 50 MCG (1999) 1 capsule Orally Once a day for 30 day(s) 03/06/2021 Not-Taking Ibuprofen 200 MG 1 tablet with food o r milk as needed Orally Three times a day Not-Taking Tylenol 325 MG 1 tablet as needed Orally every 4 hrs Active IMMUNIZATIONS Vaccine Route Administration Date Status Comme nts Flu Vaccine IM Intramuscular 09/12/2017 Administered pt wa s given the vaccine at [facility]. Fluarix Quadrivalent IM Intramuscular 10/28/2018 Administe red Covid Vaccine Unknown 02/15/2021 Administered SARS-COV-2 Moderna Unknown 03/15/2021 Administered Fluarix Quadrivalent IM Intramuscular 10/13/2021 Administe red Fluarix Quadrivalent IM Intramuscular 08/02/2023 Administe red Flu Vaccine Unknown 09/03/2016 Refused Fluarix Quadrivalent Unknown 08/16/2017 Refused Fluarix Quadrivalent Unknown 08/31/2017 Refused Fluarix Quadrivalent Unknown 09/15/2021 Refused SOCIAL HISTORY Tobacco Use: Social History Observation Description Date Details (start date - stop date) Never Smoker NA - NA Sex Assigned At : Social History Observation Description Sex Assigned At Unknown Tobacco Use/Smoking Question Answer Notes Patient is a nonsmoker Additional Findings: Tobacco Non-User Cu rrent non-smoker, currently using no form of tobacco Alcohol Screen Question Answer Notes Did you have a drink containing alcohol in the p ast year? No Points 0 Interpretation Negative PROBLEMS Problem Type ICD Code Onset Dates Problem Status W/U Status Risk SNOMED Code Notes Problem Vitamin D deficiency (E55.9) Active confirmed 12704226 Problem Memory loss (R41.3) Active confirmed 28042211 Problem Elevated triglycerides with high cholesterol (E78.2) Active confirmed 308216416 Problem Perimenopausal (N95.1) Active confirmed 947272368920811 Problem Abnormal mammogram (R92.8) Active confirmed 349834220 Problem Dysthymia (F34.1) Active confirmed 7866 7006 Problem Vaginal bleeding (N93.9) Active confirmed 398635864 Problem Arm paresthesia, left (R20.2) Active confirmed [id number] Problem Hot flashes due to menopause (N95.1) Active confirmed Menopausal symp reji (14541637) VITAL SIGNS Blood pressure diastolic 78 mm Hg 06/28/2023 abhishek ght is down 7 pounds since 04-20-23 Height 62 in 07/15/2023 weight is 153 a t home BP not taken no temp Blood pressure systolic 132 mm Hg 06/28/2023 weig ht is down 7 pounds since 04-20-23 Weight 153 lbs 07/15/2023 weight is 153 a t home BP not taken no temp BMI 27.98 kg/m2 07/15/2023 weight is 153 a t home BP not taken no temp Encounters Encounter Location Date Provider Diagnosis Diego Mayes MD [address] [place] [id number] 03/12/2023 Diego Mayes Hematuria, unspecified type R31.9 ; Adult general medical exam Z00.00 ; Elevated triglycerides with high cholesterol E78.2 ; Vaginal bleeding N93.9 ; Skin lesion L98.9 and Depression screen Z13.31 Diego Mayes MD [address] [place] [address] Drive [address] [place] [id number] 04/20/2023 Diego Mayes Hematuria, unspecified type R31.9 and Vaginal bleeding N93.9 Diego Mayes MD [address] [place] [id number] 03/09/2023 Diego Mayes Blood tests for routine general physical examination Z00.00 ; Vitamin D deficiency E55.9 and Elevated triglycerides with high cholesterol E78.2 Diego Mayes MD [address] [place] [id number] 04/08/2023 Diego Mayes Hematuria R31.9 Diego Mayes MD [address] [place] [id number] 05/14/2023 Diego Mayes Hematuria R31.9 Diego Mayes MD [address] [place] [id number] 07/30/2023 Diego Mayes UTI (urinary tract infection) N39.0 Diego Mayes MD [address] [place] [id number] 06/18/2023 Diego Mayes MD [address] [place] [id number] 06/28/2023 Diego Mayes Acute midline low back pain without sciatica M54.50 Diego Mayes MD [address] [place] [id number] 08/02/2023 Diego Mayes Encounter for immunization Z23 and Gross hematuria R31.0 Diego Myaes MD [address] [place] [id number] 03/01/2023 Diego Mayes Allergic reaction to drug, initial encounter T78.40XA Diego Mayes MD [address] [place] [id number] 05/13/2023 Diego Mayes MD [address] [place] [id number] 05/17/2023 Diego Mayes MD [address] [place] [id number] 07/15/2023 Diego Mayes Respiratory infectio n J98.8 ASSESSMENTS Encounter Date Diagnosis Assessment Notes Treatment Notes Treatment Clinical Notes 06/28/2023 Acute midline low back pain without sciatica (ICD-10 - M54.50) refer to physical therapy at [facility] 03/01/2023 Allergic reaction to drug, initial encounter (ICD-10 - T78.40XA) 03/12/2023 Hematuria, unspecified type (ICD-10 - R31.9) followed by watch technician, pending lab 03/12/2023 Adult general medical exam (ICD-10 - Z00.00) labs reviewed and discussed with patient 04/20/2023 Vaginal bleeding (ICD-10 - N93.9) doing a d/c 04/20/2023 Hematuria, unspecified type (ICD-10 - R31.9) will have her check urine when she is not bleeding. 03/09/2023 Vitamin D deficiency (ICD-10 - E55.9) 03/09/2023 Blood tests for routine general physical examination (ICD-10 - Z00.00) 08/02/2023 Gross hematuria (ICD-10 - R31.0) has ongoing bleeding from uterus so would be hard to differentiate until that is taking care of from the hysterectomy 08/02/2023 Encounter for immunization (ICD-10 - Z23) flu vaccine administered 07/15/2023 Respiratory infection (ICD-10 - J98.8) should test again for covid 03/12/2023 Elevated triglycerides with high cholesterol (ICD-10 - E78.2) is dieting and stopped her coca cola, will continue to monitor 03/09/2023 Elevated triglycerides with high cholesterol (ICD-10 - E78.2) 04/08/2023 Hematuria (ICD-10 - R31.9) 05/14/2023 Hematuria (ICD-10 - R31.9) 07/30/2023 UTI (urinary tract infection) (ICD-10 - N39.0) 03/12/2023 Vaginal bleeding (ICD-10 - N93.9) followed by watch technician 03/12/2023 Skin lesion (ICD-10 - L98.9) send to [facility] [place]/ ALL INFO GIVEN TO PATIENT REGARDING PRATHERIDE DERM 03/12/2023 Depression screen (ICD-10 - Z13.31) negative screen PLAN OF TREATMENT Pending Test Test Name Order Date Electrocardiogram (EKG) 08/25/2018 URINALYSIS + MICROSCOPIC 12/13/2018 MAMMOGRAM DIGITAL BILATERAL SCREEN 08/27 MAMMOGRAM DIGITAL BILATERAL SCREEN 03/06 US LEG LT VENOUS DOPPLER 10/09/2021 ECHO 03/10/2022 XR DEXA axial skeleton 03/06/2021 Next Appt Details Provider Name:Diego Bennett ier, 10/05/2023 08:15:00 AM, [address], [address], [place], [place], [phone], Provider Name:Diego Bennett ier, 10/11/2023 03:00:00 PM, [address], [address], [place], [phone], Provider Name:Diego Bennett ier, 03/07/2024 07:15:00 AM, [address], [address], [place], [phone], Provider Name:Diego Bennett ier, 03/13/2024 04:00:00 PM, [address] [facility], [address], [place], [phone], Insurance Providers Payer Name Payer Address Payer Phone Subscriber Number Group Number Insured Name Patient Relationship to Insured Coverage Start Date Coverage End Date [facility] [address] [facility] [place] [phone] [id number] [facility] GLOR[place] Self - patient is the insured MEDICAL (GENERAL) HISTORY Medical History History ICD Code 09/2016 HX of breast lump hematuria evaluation 2017 colonoscopy 10/24/21 repeat 10 years 2030
--- NOTE | 2023-09-03 09:15 | MHC.OFFWIV ---
Intake Vital Signs 09/03/23 09:18 BP 130/80 Blood Pressure Location Rt brachial Position Sitting Pulse 97 Pulse Source Pulse Oximeter Temp 97.8 F Temp Source Oral Pulse Oximetry (%) 97 Oxygen Delivery Method Room Air Intake Visit Reasons: EP Sore Throat/Ear (masked) Intake Note: pt here today EP sore throat/ear Patient Tobacco Use Status: Former Tobacco user Allergies metronidazole Allergy (Intermediate, Verified 09/03/23 09:16) Rash HPI HPI Comments History of Present Illness Details This is a 53-year-old female who presents to the office today for sick visit. Patient complaining of URI and respiratory symptoms. She is complaining of bilateral ear pain, sore throat, productive cough with sputum, rhinorrhea with green drainage, and bilateral eye redness and drainage/crusting. She denies any fevers or chills. She has positive sick contacts with her grandchildren. She states her symptoms have been ongoing for 1 week and have been worsening. [facility], LAT[facility] Medical History No pertinent past medical history COVID-19 vaccine series completed History of COVID-19 Surgical History Hx of section Hx of tubal ligation Family History Father Diabetes HTN (hypertension) Mother Diabetes HTN (hypertension) Asthma CHF (congestive heart failure) Maternal Aunt Stroke Social History Household Members: Spouse Household Members Other:: son Housing: House Are you a primary care transition manager to a significant other at home: No Do you presently have visiting nurse or other home services: No Alcohol intake: current Alcohol intake frequency: a few times a week Patient Tobacco Use Status: Former Tobacco user Current occupational status: employed Current occupation: [employer] Sexual orientation: Straight/Heterosexual Gender identity: Female Review of Systems Const All systems reviewed & are unremarkable except as noted in HPI and below Reports no additional complaints Eyes Reports no additional complaints ENT Reports no additional complaints Card Reports no additional complaints Resp Reports no additional complaints GI Reports no additional complaints Reports no additional complaints Musc Reports no additional complaints Skin/Breast Reports system reviewed and no additional complaints, except as documented Neuro Reports no additional complaints Psych Reports no additional complaints Endo Reports no additional complaints Mann/Lymph Reports no additional complaints Aller/Immun Reports no additional complaints Physical Exam Vital Signs: Last Vital Signs Temp 97.8 F 09/03/23 09:18 Pulse 97 09/03/23 09:18 BP 130/80 09/03/23 09:18 Pulse Ox 97 09/03/23 09:18 Oxygen Delivery Method Room Air 09/03/23 09:18 Const Other: Vital signs reviewed. Constitutional: Non-toxic appearing. No acute distress. Well-developed and well-nourished. HEENT: Normocephalic and atraumatic. Bilateral tympanic membranes are erythematous and bulging. External auditory canals without erythema or edema bilaterally. Moist mucous membranes. Mild posterior pharyngeal erythema but no exudates. Skin: Warm and dry. No rashes or lesions noted. Neck: Full and painless range of motion. No cervical lymphadenopathy. Cardio: Regular rate and rhythm. No murmurs, gallops, or rubs. No lower extremity edema. No JVD. Pulmonary: No respiratory distress. No accessory muscle usage. Clear to auscultation bilaterally without wheezing, crackles, or rhonchi. Gastrointestinal: Soft, nontender, and nondistended in all 4 quadrants. Normoactive bowel sounds in all 4 quadrants. Genitourinary: No CVA tenderness. Musculoskeletal: Normal range of motion in joints throughout the body. No deformity or other signs of injury. Neuro: Alert and oriented x4. Cranial nerves 2-12 grossly intact. No focal deficits appreciated. Psych: Normal mood and affect. Results AMB Rapid Strep AMB Rapid Strep Negative Last Edit by JASON Trevino on 09/03/23 09:40 Assessment & Plan Assessment & Plan (1) URI (upper respiratory infection): Code(s): J06.9 - Acute upper respiratory infection, unspecified (2) Otitis media: Code(s): H66.90 - Otitis media, unspecified, unspecified ear (3) Sinusitis: Code(s): J32.9 - Chronic sinusitis, unspecified Plan Patient is presenting with bilateral ear pain, sore throat, a productive cough, rhinorrhea with green drainage, and bilateral eye redness. Patient presenting with signs and symptoms most consistent with acute respiratory tract infection, acute rhinosinusitis, and acute otitis media as well as likely bacterial conjunctivitis. Recommended symptomatic management including rest, increased fluids, advil/tylenol for pain/fever, and over the counter throat lozenges/decongestants. Patient's vital signs are stable and she is overall nontoxic appearing. Patient was sent home on p.o. amoxicillin-clavulanate twice daily x7 days as well as p.o. benzonatate 100 mg 3 times daily as needed for cough and erythromycin ophthalmic ointment for conjunctivitis. Patient advised to follow up here or go to the emergency room for worsening/persistent symptoms. Patient verbalized understanding and is agreeable with the plan. Orders: Orders AMB Rapid Strep Screen Today Z13.9 - Encounter for screening, unspecified Medications: New benzonatate 100 mg PO TID PRN 20 caps 0RF cough erythromycin 0.5 inches ophthalmic (eye) QID 3.5 grams 0RF amoxicillin-pot clavulanate 875-125 mg 1 tab PO BID 14 tabs 0RF Coding Level of Care Code Est Pt Level 3 (05862) Diagnoses URI (upper respiratory infection) J06.9 Otitis media H66.90 Sinusitis J32.9
[2023-09-03 09:18] VITALS: BP 130/80; PULSE 97; TEMP 36.6; O2SAT 97
== END 2023-09-03 09:55 | disposition home or self-care (01) ==
PROVIDERS: PCP Internal Medicine; Visit Provider Physician Assistant Medical
DX: J06.9 Acute upper respiratory infection, unspecified (principal); H66.93 Otitis media, unspecified, bilateral; J32.9 Chronic sinusitis, unspecified; J02.9 Acute pharyngitis, unspecified
CPT/HCPCS: 87880; 99213

== ENCOUNTER 2023-10-04 07:48 | Outpatient (AMB) | payer OTHER, SELFPAY ==
[2023-10-04 07:53] VITALS: BP 140/100; BMI 30.2
--- NOTE | 2023-10-04 07:53 | A.OFFVIS_ITS ---
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 The pathology showed the following: A. Endometrium, polypectomy: Fragments of endometrial polyp and benign- appearing smooth muscle; no atypia identified. B. Endometrium, curettage: - Superficial fragments of inactive endo metrium; no atypia or hyperplasia identified. - Few fragments of mildly inflamed endoc ervical and squamous epithelium PFSH Medical History No pertinent past medical history COVID-19 vaccine series completed History of COVID-19 Surgical History Hx of section Hx of tubal ligation Family History Father Diabetes HTN (hypertension) Mother Diabetes HTN (hypertension) Asthma CHF (congestive heart failure) Maternal Aunt Stroke Social History Household Members: Spouse Household Members Other:: son Housing: House Are you a primary care professional to a significant other at home: No Do you presently have visiting nurse or other home services: No Alcohol intake: current Alcohol intake frequency: a few times a week Patient Tobacco Use Status: Former Tobacco user Current occupational status: employed Current occupation: [employer] Sexual orientation: Straight/Heterosexual Gender identity: Female Review of Systems Const All systems reviewed & are unremarkable except as noted in HPI and below Reports as per HPI and Reports no additional complaints GI Reports no additional complaints Reports no additional complaints Physical Exam Vital Signs: Last Vital Signs BP 140/100 H 10/04/23 07:53 BMI result Body Mass Index 30.2 Assessment & Plan Assessment & Plan (1) Postmenopausal bleeding: Comment: Endometrial polyp status post polypectomy Code(s): N95.0 - Postmenopausal bleeding Plan: Discussed with the patient the intraoperative findings, endometrial polyp, and the pathology results , showing benign polyp and inactive endometrium. Discussed with the patient the sensitivity, specificity, positive and negative predictive value, of endometrial biopsy in detecting endometrial pathology including but not limited to endometrial hyperplasia, cancer and other pathology; instructed the patient to call in case is vaginal bleeding bleeding recurs, the next step will be to proceed with a diagnostic hysteroscopy/D&C for further endometrial sampling evaluation to rule out endometrial pathology. All questions answered and the patient verbalized understanding and agreed with the plan. Coding Level of Care Code Est Pt Level 3 (97704) Diagnoses Postmenopausal bleeding N95.0
== END 2023-10-04 08:03 | disposition home or self-care (01) ==
PROVIDERS: PCP Internal Medicine; Visit Provider Obstetrics & Gynecology
DX: N95.0 Postmenopausal bleeding (principal)
CPT/HCPCS: 99213

== ENCOUNTER → 2023-10-04 07:48 | Outpatient (BNVA) | payer OTHER, SELFPAY | PROVIDERS: PCP Internal Medicine; Visit Provider Obstetrics & Gynecology ==

== ENCOUNTER 2023-10-20 08:18 | Outpatient (REF) | payer OTHER, SELFPAY ==
[2023-10-20 10:42] LABS: Appearance Urine Cloudy; Color Urine Yellow; Glucose Urine UA Negative (Negative); Leukocyte Esterase Urine Negative (Negative); Nitrite Urine Negative (Negative); PH 5.5 (5.0-9.0); UMIC TRIGGER UACC YES; Urine Blood Trace (Negative); Urine Ketones Negative (Negative); Urine Protein Negative (Neg-Trace)
[2023-10-20 10:47] LABS: Bacteria Urine 1+ (None Seen); Hyaline Casts Urine 0-2 /LPF (0-2); RBC Urine 0-2 /HPF (0-2); WBC Urine 0-5 /HPF (0-5)
== END 2023-10-20 08:19 | disposition home or self-care (01) ==
LOC: HO.LAB 08:18
PROVIDERS: PCP Internal Medicine; Visit Provider Internal Medicine
DX: R31.9 Hematuria, unspecified (principal)
CPT/HCPCS: 81001

== ENCOUNTER 2023-11-18 10:40 | Outpatient (REF) | payer OTHER, SELFPAY ==
[2023-11-18 11:16] LABS: Appearance Urine Clear; Color Urine Yellow; Glucose Urine UA Negative (Negative); Leukocyte Esterase Urine Negative (Negative); Nitrite Urine Negative (Negative); PH 5.5 (5.0-9.0); Urine Blood Negative (Negative); Urine Ketones Negative (Negative); Urine Protein Negative (Neg-Trace)
[2023-11-18 11:22] LABS: Bacteria Urine 1+ (None Seen); Hyaline Casts Urine 0-2 /LPF (0-2); RBC Urine 0-2 /HPF (0-2); WBC Urine 0-5 /HPF (0-5)
== END 2023-11-18 10:41 | disposition home or self-care (01) ==
LOC: HO.LNP 10:40
PROVIDERS: Visit Provider Internal Medicine
DX: R31.21 Asymptomatic microscopic hematuria (principal)
CPT/HCPCS: 81001

== ENCOUNTER 2024-02-01 13:17 | Outpatient (REF) | payer OTHER, SELFPAY ==
[2024-02-01 13:24] LABS: Appearance Urine Clear; Color Urine Yellow; Glucose Urine UA Negative (Negative); Leukocyte Esterase Urine Large (3+) (Negative); Nitrite Urine Negative (Negative); UMIC TRIGGER UACC YES; Urine Blood Moderate (2+) (Negative); Urine Ketones Negative (Negative); Urine Protein Trace mg/dL (Neg-Trace)
[2024-02-01 13:26] LABS: Bacteria Urine None Seen (None Seen); Hyaline Casts Urine 0-2 /LPF (0-2); RBC Urine >20 /HPF (0-2); Squamous Epithelial Cell Urine 0-2 /HPF (0-2); UACC Culture Trigger YES; WBC Urine >50 /HPF (0-5)
== END 2024-02-01 13:18 | disposition home or self-care (01) ==
LOC: HO.LNP 13:17
PROVIDERS: Visit Provider Internal Medicine
DX: N30.01 Acute cystitis with hematuria (principal)
CPT/HCPCS: 81001; 87086; 87088; 87186

== ENCOUNTER 2024-02-18 11:02 | Outpatient (REF) | payer OTHER, SELFPAY ==
[2024-02-18 12:27] LABS: Appearance Urine Clear; Bacteria Urine 2+ (None Seen); Color Urine Yellow; Glucose Urine UA Negative (Negative); Hyaline Casts Urine 0-2 /LPF (0-2); Leukocyte Esterase Urine Negative (Negative); Nitrite Urine Negative (Negative); PH 5.5 (5.0-9.0); UMIC TRIGGER UA YES; Urine Blood Trace (Negative); Urine Ketones Negative (Negative); Urine Protein Negative (Neg-Trace)
== END 2024-02-18 11:03 | disposition home or self-care (01) ==
LOC: HO.LNP 11:02
PROVIDERS: Visit Provider Internal Medicine
DX: N30.01 Acute cystitis with hematuria (principal)
CPT/HCPCS: 81001; 87086

== ENCOUNTER 2024-03-07 11:26 | Outpatient (REF) | payer OTHER, SELFPAY ==
[2024-03-07 11:30] LABS: MANUAL DIFF FLAG NO
[2024-03-07 12:00] LABS: Appearance Urine Cloudy; Color Urine Dark Yellow; Glucose Urine UA Negative (Negative); Leukocyte Esterase Urine Negative (Negative); Nitrite Urine Negative (Negative); Specific Gravity - Urine >= 1.030 (1.005-1.025); Urine Blood Negative (Negative); Urine Ketones Trace mg/dL (Negative); Urine Protein Trace mg/dL (Neg-Trace)
[2024-03-07 12:11] LABS: Basophils Absolute Auto 0.1 X10*3/uL (0.0-0.2); Eosinophils Absolute Auto 0.3 X10*3/uL (0.0-0.4); Eosinophils Percent Auto 4.2 % (0-4); Hematocrit 40.6 % (37.0-47.0); Hemoglobin 13.9 g/dl (12.0-16.0); Imm Gran Abs Auto 0.02 X10*3/uL (0.00-0.03); Imm Gran Pct Auto 0.3 % (0.0-0.4); Lymphocytes Absolute Auto 2.5 X10*3/uL (1.2-4.9); Lymphocytes Percent Auto 34.4 % (20-40); Mean Corpuscular HGB Conc 34.2 g/dl (31.0-35.0); Mean Corpuscular Hemoglobin 31.7 pg (27.0-33.0); Mean Corpuscular Volume 92.7 fL (80.0-98.0); Monocytes Absolute Auto 0.4 X10*3/uL (0.1-1.2); Monocytes Percent Auto 5.3 % (2-11); Neutrophils Absolute Auto 3.9 x10*3/uL (2.0-8.3); Neutrophils Percent Auto 54.8 % (45-73); Platelet Count 313 X10*3/uL (160-400); Red Blood Count 4.38 X10*6/uL (4.20-5.50); Red Cell Distribution Width 12.8 % (11.0-16.0); White Blood Count 7.2 X10*3/uL (4.8-10.8)
[2024-03-07 12:14] LABS: Bacteria Urine None Seen (None Seen); RBC Urine 0-2 /HPF (0-2); Squamous Epithelial Cell Urine 0-2 /HPF (0-2); WBC Urine 0-5 /HPF (0-5)
[2024-03-07 17:52] LABS: Alanine Aminotransferase 23 U/L (0-31); Albumin Level 4.3 g/dL (3.5-5.0); Alkaline Phosphatase 68 U/L (39-117); Anion Gap 13 (12-20); Aspartate Amino Transferase 27 U/L (5-31); Bilirubin Total 0.5 mg/dL (0.0-1.0); Blood Urea Nitrogen 11 mg/dL (9-16); Calcium 8.8 mg/dL (8.4-10.2); Carbon Dioxide 22 mmol/L (22-29); Chloride 105 mmol/L (96-108); Cholesterol 249 mg/dL (<200); Estimated Glomerular Filt Rate > 60; Glucose Fasting 86 mg/dL (60-99); HDL Cholesterol 45 mg/dL (>40); LDL Cholesterol Calculated 136 mg/dL (<100); Potassium 4.1 mmol/L (3.3-5.1); Sodium 136 mmol/L (135-145); Total Protein 7.6 g/dL (6.5-8.0); Triglycerides 343 mg/dL (<150)
[2024-03-07 18:14] LABS: Vitamin D 25-OH Total 9.5 ng/mL (>30)
== END 2024-03-07 11:27 | disposition home or self-care (01) ==
LOC: HO.LNP 11:26
PROVIDERS: Visit Provider Internal Medicine
DX: Z00.00 Encounter for general adult medical examination without abnormal findings (principal); E55.9 Vitamin D deficiency, unspecified; R31.9 Hematuria, unspecified; E78.2 Mixed hyperlipidemia
CPT/HCPCS: 80053; 80061; 81001; 82306; 85025

== ENCOUNTER 2025-01-03 14:47 | Outpatient (AMB) | payer OTHER, SELFPAY ==
--- NOTE | 2025-01-03 14:49 | A.OFFVIS_ITS ---
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 The patient gives a history of an episode of postmenopausal bleeding few weeks Last Pap/HPV was negative in 02/10 Last Mammogram was BI-RADS 2 in 04/12 Last Colonoscopy was done in 11/11, the recommendation was to repeat in years Last ultrasound of the pelvis was in 08/14 showed 2 myomas 1 is 1.4 cm the sound was 2.7 cm in largest diameter. Since then the patient is doing well with no complaints no pelvic pain/pressure. PFS Medical History No pertinent past medical history COVID-19 vaccine series completed History of COVID-19 Surgical History Hx of section Hx of tubal ligation Family History Father Diabetes HTN (hypertension) Mother Diabetes HTN (hypertension) Asthma CHF (congestive heart failure) Maternal Aunt Stroke Social History Household Members: Spouse Household Members Other:: son Housing: House Are you a primary youth care specialist to a significant other at home: No Do you presently have visiting nurse or other home services: No Alcohol intake: current Alcohol intake frequency: a few times a week Patient Tobacco Use Status: Former Tobacco user Current occupational status: employed Current occupation: [email or web address] Sexual orientation: Straight/Heterosexual Gender identity: Female Female Reproductive History Menstrual Menopause type: natural Date of last pap smear: 02/18/22 Date of Mammogram: 03/25/22 Review of Systems Const All systems reviewed & are unremarkable except as noted in HPI and below Card Reports as per HPI Resp Reports as per HPI GI Reports as per HPI and Reports no additional complaints Reports as per HPI Physical Exam Vital Signs: Last Vital Signs BP 128/90 H 01/03/25 14:57 BMI result Body Mass Index 29.3 Const General: cooperative, healthy appearing and comfortable Chest Chest palpation & inspection: normal inspection of the chest and normal palpation of entire chest wall Breast/axilla inspection: normal inspection of the breasts and normal inspection of the axillae Breast/axilla palpation: normal palpation of the breasts, normal palpation of the axillae and no axillary lymphadenopathy Resp Effort & Inspection: normal respiratory effort Auscultation: clear to auscultation bilaterally Percussion: percussion normal Cardio Palpation: normal PMI Rate: regular rate Rhythm: regular rhythm Heart sounds: no murmurs and no rubs Peripheral pulses: Peripheral pulses 2+ throughout GI Inspection: Yes normal to inspection Palpation (GI): Soft to palpation, nontender, no guarding, not rigid and No hepatosplenomegaly present Percussion: Yes normal to percussion Auscultation: normal bowel sounds Rectal Exam - Female: deferred General: Yes bladder normal to palpation External Female Exam: No lesion Speculum Exam - Vagina: normal appearance of the vagina, normal palpation, normal vaginal discharge and not erythematous Speculum Exam - Cervix: normal appearance of the cervix and normal palpation Bimanual exam- vagina & uterus: normal bimanual exam, normal palpation, uterine size normal, bladder normal to palpation, consistency normal and normal palpation Bimanual Exam- Adnexa, other: normal adnexae, no masses and no tenderness Assessment & Plan Assessment & Plan (1) Well woman exam: Code(s): Z01.419 - Encounter for gynecological examination (general) (routine) without abnormal findings Category: Medical Plan: Co testing not indicated yet. Counseled the patient about the recommended dietary allowance of 1200 mg of Calcium & 600 IU of vitamin D. Mammogram ordered. The patient was instructed to perform monthly self-breast exams and schedule annual exam in a year. All questions answered and the patient verbalized understanding. (2) Uterine myoma: Code(s): D25.9 - Leiomyoma of uterus, unspecified Category: Medical Plan: Will order pelvic ultrasound. Instructions given to the patient to schedule an ultrasound and a follow-up appointment within 2 weeks. All questions answered, the patient verbalized understanding (3) Postmenopausal bleeding: Code(s): N95.0 - Postmenopausal bleeding Category: Medical Plan: Discussed with the patient the differential diagnosis of post menopausal bleeding with normal pelvic exam including but not limited to, endometrial hyperplasia, cancer, polyps and other causes; co testing done, recommended ultrasound to measure the endometrial stripe; discussed with the patient that if the endometrial thickness is 4 mm or less the negative predictive value of endometrial pathology is 99%, otherwise If endometrial thickness is more than 4 mm will proceed with endometrial sampling versus hysteroscopy D&C polypectomy depending on the ultrasound findings. Instructed the patient to schedule an ultrasound with a follow-up appointment in 2 weeks. All questions answered, the patient verbalized understanding and agreed with the plan. This note was generated with a voice recognition program. Some errors may have been overlooked during the review of this note. Sometimes these errors may affect the content or meaning of a given sentence. Orders: Orders US pelvic and transvaginal Today D25.9 - Leiomyoma of uterus, unspecified, N95.0 - Postmenopausal bleeding MM tomosynthesis screening BI Today Z12.31 - Encounter for screening mammogram for malignant neoplasm of breast Coding Level of Care Code Est Pt Prev Care 40-64y(72650) Diagnoses Well woman exam Z01.419 Uterine myoma D25.9 Postmenopausal bleeding N95.0
[2025-01-03 14:57] VITALS: BP 128/90; BMI 29.3
--- OUTSIDE RECORDS SUMMARY | 2025-01-03 16:00 | XMS_ITS | Patient Health Record ---
Author Organization [facility] Address [address] [place] [address] Care Team Providers Care Track Rider Name Role Phone Diego Mayes MD Primary Care Provider Taiwo Bird Jr [phone] ALLERGIES No Known Allergies REASON FOR REFERRAL No Information MEDICATIONS Medication SIG (Take, Route, Frequency, Duration) Notes Start Date End Date Status MiraLax (colon prep) 8.3 ounce ((238) grams mixed with Gatorade or Crystal Light orally begin at 5:00 p.m. the day before the procedure for 1 day 05/29/2021 Active IMMUNIZATIONS Vaccine Route Administration Date Status Comme nts Influenza Unknown 07/23/2020 Administered SOCIAL HISTORY Tobacco Use: Social History Observation Description Date Details (start date - stop date) Never Smoker NA - NA Sex Assigned At : Social History Observation Description Sex Assigned At Unknown Tobacco Use/Smoking Question Answer Notes Patient is a nonsmoker Alcohol Screen Question Answer Notes Did you have a drink contain ing alcohol in the past year? Yes How often did you have a dri nk containing alcohol in the past year? Never (0 point) How many drinks did you have on a typical day when you were drinking in the past year? 1 or 2 drinks (0 point) How often did you have 6 or more drinks on one occasion in the past year? Never (0 point) Points 0 Interpretation Negative PROBLEMS Problem Type ICD Code Onset Dates Problem Status W/U Status Risk SNOMED Code Notes Problem Colon cancer screening (Z12.11) Active confirmed 387936236 Problem Encounter for other preprocedural examination (Z01.818) Active confirmed 248804888 PLAN OF TREATMENT Future Test Test Name Order Date COLONOSCOPY 05/29/2021 Insurance Providers Payer Name Payer Address Payer Phone Subscriber Number Group Number Insured Name Patient Relationship to Insured Coverage Start Date Coverage End Date [facility] [address] [place] [phone] [id number] JERAD GARCIA Self - patient is the insured MEDICAL (GENERAL) HISTORY Medical History History ICD Code Denies MD,DM,CVA,Lung disease,renal dise ase Surgical History Surgery Date(Month/Year) tubal ligation
--- OUTSIDE RECORDS SUMMARY | 2025-01-03 16:01 | XMS_ITS ---
Author Organization Diego Mayes MD Address [address] [place] [id number] Care Team Providers Care Barn Hand Name Role Phone Diego Mayes Primary Care Provider Allergies Allergen (clinical drug ingredient) Drug/Non Drug Allergy documented on EMR Reaction Allergy Type Onset Date Status metronidazole Metronidazole rash Drug Allergy Active REASON FOR VISIT 3 MO F/U Medications Medication SIG (Take, Route, Frequency, Duration) Notes Start Date End Date Status Lisinopril 10 MG 1 tablet Orally Once a day 06/16/2024 Active Ibuprofen 200 MG 1 tablet with food o r milk as needed Orally Three times a day Not-Taking Vitamin D3 50 MCG (1999 UT) 1 capsule Orally Once a day for 30 day(s) 03/06/2021 Not-Taking Aleve 220 MG 1 tablet with food o r milk as needed Orally every 12 hrs Active Tylenol 325 MG 1 tablet as needed Orally every 4 hrs Active Immunizations Vaccine Route Administration Date Status Comme nts Fluarix Quadrivalent - 150 IM Intramuscular 09/21/2024 Adm inistered Vital Signs Blood pressure systolic 144 mm Hg 09/21/20 24 Blood pressure diastolic 92 mm Hg 024 Height 62 in 09/21/2024 Weight 164 lbs 09/21/2024 BMI 29.99 kg/m2 09/21/2024 weight is up 4 pounds since 06-16-24 Encounters Encounter Location Date Provider Diagnosis Diego Mayes MD [address] [place] [address] [address] [place], [place] [phone] 09/21/2024 Diego Mayes Encounter for immunization Z23 and Essential hypertension I10 Assessments Encounter Date Diagnosis (ICD Code) Assessment Notes Treatment Notes Treatment Clinical Notes Section Notes 09/21/2024 Encounter for immunization (ICD-10 - Z23) flu vACCINE ADMINISTERED 09/21/2024 Essential hypertension (ICD-10 - I10) well controlled on meds. advised to lose weight and exercise Plan Of Treatment Medication Medication Name Sig Start Date Stop Date Notes Lisinopril 10 MG 1 tablet Orally Once a day 06/16/2024 Treatment Notes Assessment Notes Encounter for immunization flu vACCINE A DMINISTERED Essential hypertension well controlled o n meds. advised to lose weight and exercise Next Appt Details Provider Name:Diego noble, 03/09/2025 07:30:00 AM, [address] [place] [address], [address] [facility], [place], [place], [phone], Provider Name:Diego noble, 03/16/2025 02:30:00 PM, [address] [place] [address], [address], [place], [place], [phone], Progress Notes * ARNEL GARCIADOB: [birth year] (54 yo F)Acc No.[id number]:09/21/2024 Progress Notes Patient:?JesusARNEL Provider:?Diego Mayes MD :1970???Age:54 Y???Sex:Female D ate:09/21/2024 Address:[address] [place] [address] [id number] Subjective: * Chief Complaints: * ???3 MO F/U * HPI: ???Symptom(s):? patient is a 54 yo female here for 3 month follow up of bp. * ROS:?General/Constitutional:?Denies?Chills.?Denies?Fatigue.?Denies?Fever.?Denies?Headache.?ENT:?Patient denies?decreased sense of smell , any loss of taste , sore throat.?Denies?Sore throat.?Respiratory:?Denies?Cough.?Denies?Shortness of breath at rest.?Denies?Shortness of breath with exertion.?Cardiovascular:?Denies?Chest pain at rest.?Denies?Chest pain with exertion.?Denies?Dizziness.?Denies?Palpitations.?Denies?Shortness of breath.?Gastrointestinal:?Denies?Diarrhea.?Denies?Nausea.?Musculoskeletal:?Patient denies?muscle aches.?Peripheral Vascular:?Patient denies?red and blue toes.? * Medical History:? * Surgical History:? * Hospitalization/Major Diagno stic Procedure:? * Medications:?TakingAleve 220 MG Tablet 1 tablet with food or milk as needed Orally every 12 hrsTylenol 325 MG Tablet 1 tablet as needed Orally every 4 hrsLisinopril 10 MG Tablet 1 tablet Orally Once a dayTaking Aleve 220 MG Tablet 1 tablet with food or milk as needed Orally every 12 hrsTaking Tylenol 325 MG Tablet 1 tablet as needed Orally every 4 hrsTaking Lisinopril 10 MG Tablet 1 tablet Orally Once a dayNot-Taking/PRNIbuprofen 200 MG Tablet 1 tablet with food or milk as needed Orally Three times a dayVitamin D3 50 MCG (2000 UT) Capsule 1 capsule Orally Once a dayNot-Taking/PRN Ibuprofen 200 MG Tablet 1 tablet with food or milk as needed Orally Three times a dayNot-Taking/PRN Vitamin D3 50 MCG (2000 UT) Capsule 1 capsule Orally Once a day * Allergies:?Metronidazole: ra walsh[Allergies Verified] Objective: * Vitals:?Ht: 62, Wt:164, BMI: 29.99, BP:144/92, Repeat BP:122/86 weight is up 4 pounds since 06-16-24. * Examination: ???General Examination: ?GENERAL APPEARANCE:? alert, well hydrated, in no distress .?HEAD:? normocephalic.?SKIN:? good turgor.?HEART:? no murmurs, rubs, gallops, regular rate and rhythm.?LUNGS:? no wheezes, rales, rhonchi, good air movement, clear to auscultation bilaterally.? Assessment: * Assessment: 1.?Essential hypertension - I10 (Primary)?2.?Encounter for immunization - Z23? Plan: * Treatment: 2.?Encounter for immunizatio n? Notes: flu vACCINE ADMINISTERED?? * Immunizations:? Fluarix Quadrivalent - 150 : 0.5 mL (Dose No:1) (Route: Intramuscular) given by Seema Serna on Left Deltoid * Procedure Codes:?26616 FLU V ACCINE NO PRESERV 3 & >18160 IMMUNIZATION ADMIN * Preventive Medicine:? ??Immunizations:?Influenza?Have you had a flu shot since the most recent July 23??Yes.? * * Sign off status: Completed true * Provider:?Diego Mayes MD Date:?1 Generated for Asif verdin/Yolanda/Baljeetitting on:?2025 04:01 PM EST History and Physical Notes * HPI (History of Present Illness) Category Sub-Category Detail Notes Category Not es Symptom(s) patient is a 54 yo female here for 3 month follow up of bp. Examination Category Sub-Category Detail Notes Category Not es General Examination GENERAL APPEARANCE: alert, w ell hydrated, in no distress HEAD: normocephalic HEART: no murmurs, rubs, ga llops, regular rate and rhythm LUNGS: no wheezes, rales, r honchi, good air movement, clear to auscultation bilaterally SKIN: good turgor
--- OUTSIDE RECORDS SUMMARY | 2025-01-03 16:01 | XMS_ITS ---
Author Organization Diego Mayes MD Address [address] [place] [phone] Care Team Providers Care Applications Tester Name Role Phone Diego Mayes Primary Care Provider Allergies Allergen (clinical drug ingredient) Drug/Non Drug Allergy documented on EMR Reaction Allergy Type Onset Date Status metronidazole Metronidazole rash Drug Allergy Active REASON FOR VISIT ANNUAL EXAM, No Covid symptoms, c/o headaches since she fell off a ladder 2 weeks ago and hit her head. Did not go to the ER Medications Medication SIG (Take, Route, Frequency, Duration) Notes Start Date End Date Status Ibuprofen 200 MG 1 tablet with food o r milk as needed Orally Three times a day Not-Taking Vitamin D3 50 MCG (1999) 1 capsule Orally Once a day for 30 day(s) 03/06/2021 Not-Taking Tylenol 325 MG 1 tablet as needed Orally every 4 hrs Active Social History Tobacco Use: Social History Observation Description Date Details (start date - stop date) Never Smoker NA - NA Tobacco Use/Smoking Question Answer Notes Patient is a nonsmoker Additional Findings: Tobacco Non-User Cu rrent non-smoker, currently using no form of tobacco Alcohol Screen Question Answer Notes Did you have a drink containing alcohol in the p ast year? No Points 0 Interpretation Negative Vital Signs Blood pressure systolic 120 mm Hg 03/13/20 24 Blood pressure diastolic 82 mm Hg 024 Height 62 in 03/13/2024 Weight 157 lbs 03/13/2024 BMI 28.71 kg/m2 03/13/2024 Encounters Encounter Location Date Provider Diagnosis Diego Mayes MD [address] [place] [address] Drive [address] [place], [place] [phone] 03/13/2024 Diego Mayes Essential hypertension I10 ; Annual physical exam Z00.00 ; Vitamin D deficiency E55.9 ; Injury of head, sequela S09.90XS ; Elevated triglycerides with high cholesterol E78.2 and Depression screening Z13.31 Assessments Encounter Date Diagnosis (ICD Code) Assessment Notes Treatment Notes Treatment Clinical Notes Section Notes 03/13/2024 Essential hypertension (ICD-10 - I10) has been off lisinopril for over one month and bp is fine, will continue to monitor 03/13/2024 Annual physical exam (ICD-10 - Z00.00) lans reviewedand discussed with patient 03/13/2024 Vitamin D deficiency (ICD-10 - E55.9) needs to take vitamin 2000 units 03/13/2024 Injury of head, sequela (ICD-10 - S09.90XS) no treatment needed will observe 03/13/2024 Elevated triglycerides with high cholesterol (ICD-10 - E78.2) stable, will continue to monitor 03/13/2024 Depression screening (ICD-10 - Z13.31) negative screen Plan Of Treatment Treatment Notes Assessment Notes Essential hypertension has been off adrian nopril for over one month and bp is fine, will continue to monitor Annual physical exam lans reviewedand di scussed with patient Vitamin D deficiency needs to take vitam in 2000 units Injury of head, sequela no treatment nee ded will observe Elevated triglycerides with high cholest hugo stable, will continue to monitor Depression screening negative screen Next Appt Details Follow Up: 3 Months, Reason: Provider Name:Diego noble, 03/09/2025 07:30:00 AM, [address] [place] [address] Drive, [address], [place], [place], [phone], Provider Name:Diego noble, 03/16/2025 02:30:00 PM, [address], [address], [place], [place], [phone], Progress Notes * CALI GARCIA: 8 (54 yo F)Acc No.[id number]:03/13/2024 Progress Notes Patient:?ARNEL Garcia Provider:?Diego Mayes MD :1970???Age:54 Y???Sex:Female D ate:03/13/2024 Address:[address] [place], [place] [phone] Subjective: * Chief Complaints: * ???ANNUAL EXAMNo Covid sympt omsc/o headaches since she fell off a ladder 2 weeks ago and hit her head. Did not go to the ER * HPI: ???Depression Screening:?PHQ-9?Little interest or pleasure in doing things?Not at all,?Feeling down, depressed, or hopeless?Not at all,?Trouble falling or staying asleep, or sleeping too much?Not at all,?Feeling tired or having little energy?Not at all,?Poor appetite or overeating?Not at all,?Feeling bad about yourself or that you are a failure, or have let yourself or your family down?Not at all,?Trouble concentrating on things, such as reading the newspaper or watching television?Not at all,?Moving or speaking so slowly that other people could have noticed; or the opposite, being so fidgety or restless that you have been moving around a lot more than usual?Not at all,?Thoughts that you would be better off or of hurting yourself in some way?Not at all,?Total Score?0.?Interpretation and Intervention?Depression Screening Findings?Negative,?Follow-Up for Depression?: review of PHQ-9 found negative result, no follow-up needed.? patient is a 54 yo female her for annual visit with review of recent labs and follow up of chronic issues, FELL off ladder. slipped and fell off the top of the ladder 2 weeks ago. hit upper back and then head. now with headaches. ???Fall Risk:?History?Have you had any falls with injury in the past year??Yes 2 weeks ago fell off aladder and hit her head did not go to the ER gettting headaches..?Communication Needs:?Communication Needs?Does the patient have a hearing impairment?No,?Does the patient have a vision impairment??Yes,?If yes, what is the vision impairment??Glasses,?Does the patient have a cognition impairment??Yes.? * ROS:?General/Constitutional:?Patient denies?fatigue, headache.?Change in appetite?denies.?Chills?denies.?Fever?denies.?Ophthalmologic:?Blurred vision?denies.?Discharge?denies.?Pain?denies.?ENT:?Patient denies?decreased sense of smell, any loss of taste, sore throat.?Decreased hearing?denies.?Sore throat?denies.?Swollen glands?denies.?Endocrine:?Cold intolerance?denies.?Excessive thirst?denies.?Heat intolerance?denies.?Weight loss?denies.?Respiratory:?Cough?denies.?Shortness of breath at rest?denies.?Shortness of breath with exertion?denies.?Wheezing?denies.?Cardiovascular:?Chest pain at rest?denies.?Chest pain with exertion?denies.?Irregular heartbeat?denies.?Shortness of breath?denies.?Gastrointestinal:?Abdominal pain?denies.?Change in bowel habits?denies.?Diarrhea?denies.?Nausea?denies.?Rectal bleeding?denies.?Vomiting?denies .?Genitourinary:?Blood in urine?denies.?Difficulty urinating?denies.?Frequent urination?denies.?Urinary incontinence?Denies.?Musculoskeletal:?Patient denies?muscle aches.?Painful joints?denies.?Weakness?denies.?Peripheral Vascular:?Patient denies?red and blue toes.?Skin:?Dry skin?denies.?Itching?denies.?Denies?Mole(s),? changes in moles, new moles or any lesions of concern.?Denies?Photosensitivity.?Rash?denies.?Neurologic:?Dizziness?denies.?Fainting?denies.?Headache?denies.? * Medical History:? * Surgical History:? * Hospitalization/Major Diagno stic Procedure:? * Family History:?Father: dece ased 95 yrs, diagnosed with Hypertension, Diabetes.?Mother: 85 yrs, diagnosed with Asthma, Diabetes.?2 brother(s) , 2 sister(s) . 3 son(s) , 1 daughter(s) . .? Denies mental health/substance abuse family history Mother- Ols age Father -Old age, No pertinent family medical history, Denies mental health/substance abuse family history. * Social History:?Tobacco Use:?Tobacco Use/Smoking?Patient is a?nonsmoker,?Additional Findings: Tobacco Non-User?Current non-smoker, currently using no form of tobacco.?Drugs/Alcohol:?Alcohol Screen?Did you have a drink containing alcohol in the past year??No,?Points?0,?Interpretation?Negative.?Miscellaneous:?Caffeine: yes, frequency:, 2-3 cups per day. Children: yes. no Community involvements. Exercise: yes, walking and dancing QD. Home smoke detector use: yes. Housing: owning. Living with: spouse. Marital status: . Occupation: weeks/months/years, works full-time. Pets: none. no Travel outside of the [place]. * Medications:?TakingTylenol 3 25 MG Tablet 1 tablet as needed Orally every 4 hrsTaking Tylenol 325 MG Tablet 1 tablet as needed Orally every 4 hrsNot- Taking/PRNIbuprofen 200 MG Tablet 1 tablet with food or milk as needed Orally Three times a dayVitamin D3 50 MCG (2000 UT) Capsule 1 capsule Orally Once a dayNot-Taking/PRN Ibuprofen 200 MG Tablet 1 tablet with food or milk as needed Orally Three times a dayNot- Taking/PRN Vitamin D3 50 MCG (1999 UT) Capsule 1 capsule Orally Once a dayDiscontinuedLisinopril 10 MG Tablet 1 tablet Orally Once a dayBactrim DS 800-160 MG Tablet 1 tablet Orally Three times a WeekPyridium 200 MG Tablet 1 tablet after meals Orally Three times a dayCephalexin 500 MG Capsule 1 capsule Orally 2 times a dayMedication List reviewed and reconciled with the patientDiscontinued Lisinopril 10 MG Tablet 1 tablet Orally Once a dayDiscontinued Bactrim DS 800-160 MG Tablet 1 tablet Orally Three times a WeekDiscontinued Pyridium 200 MG Tablet 1 tablet after meals Orally Three times a dayDiscontinued Cephalexin 500 MG Capsule 1 capsule Orally 2 times a dayMedication List reviewed and reconciled with the patient * Allergies:?Metronidazole: ra walsh[Allergies Verified] Objective: * Vitals:?Ht: 62, Wt:157, BMI: 28.71, BP:120/82. * ???Past Orders: ???Lab:Comprehensive [place]. P bennett Fast (Order Date - 03/07/2024) (Collection Date - 03/07/2024) ? Value Reference Range ?Sodium 136 135-145 - mmo l/L ?Bilirubin Total 0.5 0.0- 1.0 - mg/dL ?Aspartate Amino Transferase 27 5-31 - U/L ?Alanine Aminotransferase 23 0-31 - U/L ?Total Protein 7.6 6.5-8. 0 - g/dL ?Albumin Level 4.3 3.5-5. 0 - g/dL ?Alkaline Phosphatase 68 39-117 - U/L ?Potassium 4.1 3.3-5.1 - mmol/L ?Chloride 105 96-108 - mm ol/L ?Carbon Dioxide 22 22-29 - mmol/L ?Anion Gap 13 12-20 - ?Blood Urea Nitrogen 11 9-16 - mg/dL ?Creatinine 0.73 0.5-1.4 - mg/dL ?Estimated Glomerular Filt Rate > 60 - ?Glucose Fasting 86 60-9 9 - mg/dL ?Calcium 8.8 8.4-10.2 - m g/dL ???Lab:Lipid Panel (Order Da te - 03/07/2024) (Collection Date - 03/07/2024) ? Value Reference Range ?Triglycerides 343 H <150 - mg/dL ?Cholesterol 249 H <200 - m g/dL ?LDL Cholesterol Calculated 136 H <100 - mg/dL ?HDL Cholesterol 45 >40 - mg/dL ???Lab:UA ClnCatch+Micro w/r flx Cult (Order Date - 03/07/2024) (Collection Date - 03/07/2024) ? Value Reference Range ?Color Urine Dark Yellow - ?Appearance Urine Cloudy - ?PH 5.0 5.0-9.0 - ?Glucose Urine UA Negative Neg ative - mg/dL ?Urine Blood Negative Negative - ?Specific [place] - Urine >= 1.030 H 1.005-1.025 - ?Urine Protein Trace Neg-Tr seda - mg/dL ?Urine Ketones Trace Negati ve - mg/dL ?Nitrite Urine Negative Negati ve - ?Leukocyte Esterase Urine Negative Negative - ?RBC Urine 0-2 0-2 - /HPF ?WBC Urine 0-5 0-5 - /HPF ?Squamous Epithelial Cell Urine 0-2 0-2 - /HPF ?Bacteria Urine None Seen None Seen - ?Hyaline Casts Urine 3-5 0-2 - /LPF ???Lab:Complete Blood Count Auto Diff (Order Date - 03/07/2024) (Collection Date - 03/07/2024) ? Value Reference Range ?White Blood Count 7.2 4. 8-10.8 - X10*3/uL ?Red Blood Count 4.38 4.20 -5.50 - X10*6/uL ?Hemoglobin 13.9 12.0-16.0 - g/dl ?Hematocrit 40.6 37.0-47.0 - % ?Mean Corpuscular Volume 92.7 80.0-98.0 - fL ?Mean Corpuscular Hemoglobin 31.7 27.0-33.0 - pg ?Mean Corpuscular HGB Conc 34.2 31.0-35.0 - g/dl ?Red Cell Distribution Width 12.8 11.0-16.0 - % ?Platelet Count 313 160-4 00 - X10*3/uL ?Mean Platelet Volume 10.0 9.4-12.3 - fL ?Neutrophils Percent Auto 54.8 45-73 - % ?Imm Gran Pct Auto 0.3 0. 0-0.4 - % ?Lymphocytes Percent Auto 34.4 20-40 - % ?Monocytes Percent Auto 5.3 2-11 - % ?Eosinophils Percent Auto 4.2 H 0-4 - % ?Basophils Percent Auto 1.0 0-2 - % ?NRBC Pct Auto 0.0 0.0-0. 2 - /100WBC ?Neutrophils Absolute Auto 3.9 2.0-8.3 - x10*3/uL ?Imm Gran Abs Auto 0.02 0. 00-0.03 - X10*3/uL ?Lymphocytes Absolute Auto 2.5 1.2-4.9 - X10*3/uL ?Monocytes Absolute Auto 0.4 0.1-1.2 - X10*3/uL ?Eosinophils Absolute Auto 0.3 0.0-0.4 - X10*3/uL ?Basophils Absolute Auto 0.1 0.0-0.2 - X10*3/uL ?NRBC Abs Auto 0.000 0.0-0. 012 - X10*3/uL * Examination: ???General Examination: ?GENERAL APPEARANCE:?well developed, well nourished, in no acute distress.?HEAD:?normocephalic, atraumatic.?EYES:?pupils equal, round, reactive to light and accommodation, sclera non-icteric.?EARS:?normal.?ORAL CAVITY:?mucosa moist.?THROAT:?clear.?NECK/THYROID:?neck supple, full range of motion, no cervical lymphadenopathy, no bruits.?SKIN:?warm and dry, no suspicious lesions.?HEART:?regular rate and rhythm, S1, S2 normal, no murmurs.?LUNGS:?clear to auscultation bilaterally.?BREASTS:?done by software reliability engineer.?ABDOMEN:?soft, nontender, nondistended, bowel sounds present, normal, no organomegaly , no masses palpable.?RECTAL EXAM:?done by software reliability engineer.?FEMALE GENITOURINARY:?done by software reliability engineer.?EXTREMITIES:?no clubbing, cyanosis, or edema.?NEUROLOGIC:?nonfocal, motor strength normal upper and lower extremities, sensory exam intact.? Assessment: * Assessment: 1.?Annual physical exam - Z0 0.00 (Primary)?2.?Essential hypertension - I10?3.?Vitamin D deficiency - E55.9?4.?Injury of head, sequela - S09.90XS?5.?Elevated triglycerides with high cholesterol - E78.2?6.?Depression screening - Z13.31? Plan: * Treatment: 2.?Essential hypertension? Notes: has been off lisinopril for over one month and bp is fine, will continue to monitor.?? 3.?Vitamin D deficiency? Notes: needs to take vitamin 2000 units.?? 4.?Injury of head, sequela? Notes: no treatment needed will observe.?? 5.?Elevated triglycerides wi th high cholesterol? Notes: stable, will continue to monitor.?? 6.?Depression screening? Notes: negative screen.?? * Procedure Codes:? * Follow Up:?3 Months * * Sign off status: Completed true * Provider:?Diego Mayes MD Date:?0 03/13/2024 Generated for Asif verdin/Yolanda/eTransmitting on:?2025 04:00 PM EST History and Physical Notes * HPI (History of Present Illness) Category Sub-Category Detail Notes Category Not es Depression Screening PHQ-9 Little inte rest or pleasure in doing things: Not at all patient is a 54 yo female her for annual visit with review of recent labs and follow up of chronic issues, FELL off ladder. slipped and fell off the top of the ladder 2 weeks ago. hit upper back and then head. now with headaches. Feeling down, depressed, or hopeless: No t at all Trouble falling or staying asleep, or sl eeping too much: Not at all Feeling tired or having little energy: N ot at all Poor appetite or overeating: Not at all Feeling bad about yourself o r that you are a failure, or have let yourself or your family down: Not at all Trouble concentrating on thi ngs, such as reading the newspaper or watching television: Not at all Moving or speaking so slowly that other people could have noticed; or the opposite, being so fidgety or restless that you have been moving around a lot more than usual: Not at all Thoughts that you would be b loretta off or of hurting yourself in some way: Not at all Total Score: 0 Interpretation and Intervention Depression Momo lara Findings: Negative Follow-Up for Depression: : review of PH Q-9 found negative result, no follow-up needed Fall Risk History Have you had any falls with injury in the past year?: Yes 2 weeks ago fell off aladder and hit her head did not go to the ER gettting headaches. Communication Needs Communication Needs Does the patient have a hearing impairment: No Does the patient have a vision impairmen t?: Yes ?If yes, what is the vision impairment?: Glasses Does the patient have a cognition impair ment?: Yes Examination Category Sub-Category Detail Notes Category Not es General Examination GENERAL APPEARANCE: well dev eloped, well nourished, in no acute distress HEAD: normocephalic, atrau matic EYES: pupils equal, round, reactive to light and accommodation, sclera non- icteric EARS: normal THROAT: clear NECK/THYROID: neck supple, full ra nge of motion, no cervical lymphadenopathy, no bruits HEART: regular rate and rhy thm, S1, S2 normal, no murmurs LUNGS: clear to auscultatio n bilaterally ABDOMEN: soft, nontender, non distended, bowel sounds present, normal, no organomegaly , no masses palpable NEUROLOGIC: nonfocal, motor stre ngth normal upper and lower extremities, sensory exam intact SKIN: warm and dry, no kassidy picious lesions EXTREMITIES: no clubbing, cyanosi s, or edema BREASTS: done by software reliability engineer RECTAL EXAM: done by software reliability engineer FEMALE GENITOURINARY: done by software reliability engineer ORAL CAVITY: mucosa moist
--- OUTSIDE RECORDS SUMMARY | 2025-01-03 16:01 | XMS_ITS ---
Author Organization Diego Mayes MD Address [address] [place] [phone] Care Team Providers Care Sewer Bricklayer Name Role Phone Diego Mayes Primary Care Provider Allergies Allergen (clinical drug ingredient) Drug/Non Drug Allergy documented on EMR Reaction Allergy Type Onset Date Status metronidazole Metronidazole rash Drug Allergy Active REASON FOR VISIT 3 MO F/U, c/o headache x 3 days using Aleve Medications Medication SIG (Take, Route, Frequency, Duration) Notes Start Date End Date Status Lisinopril 10 MG 1 tablet Orally Once a day for 30 day(s) 06/16/2024 Active Tylenol 325 MG 1 tablet as needed Orally every 4 hrs Active Aleve 220 MG 1 tablet with food o r milk as needed Orally every 12 hrs Active Ibuprofen 200 MG 1 tablet with food o r milk as needed Orally Three times a day Not-Taking Vitamin D3 50 MCG (1999) 1 capsule Orally Once a day for 30 day(s) 03/06/2021 Not-Taking Problems Problem Type SNOMED Code ICD Code Onset Dates Problem Status W/U Status Risk Notes Problem [id number] Tension headache (G44.209) Active confirmed Vital Signs Blood pressure systolic 152 mm Hg 06/16/20 24 Blood pressure diastolic 100 mm Hg 024 Height 62 in 06/16/2024 Weight 160 lbs 06/16/2024 BMI 29.26 kg/m2 06/16/2024 weight is up 3 pounds since 03-13-24 Encounters Encounter Location Date Provider Diagnosis Diego Mayes MD [address] [place] [address] [place] [phone] 06/16/2024 Diego Mayes Tension headache G44.209 ; Essential hypertension I10 and Acute diarrhea R19.7 Assessments Encounter Date Diagnosis (ICD Code) Assessment Notes Treatment Notes Treatment Clinical Notes Section Notes 06/16/2024 Tension headache (ICD-10 - G44.209) will just observe 06/16/2024 Essential hypertension (ICD-10 - I10) was good on this will restart, patient verbalized understanding of medication and directions for use 06/16/2024 Acute diarrhea (ICD-10 - R19.7) sounds viral, will continue to monitor Plan Of Treatment Medication Medication Name Sig Start Date Stop Date Notes Lisinopril 10 MG 1 tablet Orally Once a day for 30 day(s) 06/16/2024 Treatment Notes Assessment Notes Tension headache will just observe Essential hypertension was good on this will restart, patient verbalized understanding of medication and directions for use Acute diarrhea sounds viral, will c ontinue to monitor Next Appt Details Follow Up: 3 Months, Reason: Provider Name:Diego noble, 03/09/2025 07:30:00 AM, [address] [place] [address], Suite [facility], [place], [place], [phone], Provider Name:Diego noble, 03/16/2025 02:30:00 PM, [address] [place] [address], [address] [facility], [place], [place], [phone], Progress Notes * ARNEL GARCIADOB: 8 (54 yo F)Acc No.[id number]:06/16/2024 Progress Notes Patient:?ARNEL Garcia Provider:?Diego Mayes MD :1970???Age:54 Y???Sex:Female D ate:06/16/2024 Address:[address] [place], [place] [id number] Subjective: * Chief Complaints: * ???3 MO F/Uc/o headache x 3 days using Aleve * HPI: ???Symptom(s):? patient is a 54 yo female here for 3 month follow up visit, has headache frontal for 3 days. goes away with aleve. * ROS:?General/Constitutional:?Denies?Chills.?Denies?Fatigue.?Denies?Fever.?Admits?Headache.?ENT:?Patient denies?decreased sense of smell, any loss of taste, sore throat.?Denies?Sore throat.?Respiratory:?Denies?Cough.?Denies?Shortness of breath at rest.?Denies?Shortness of breath with exertion.?Gastrointestinal:?Denies?Diarrhea.?Denies?Nausea.?Musculoskeletal:?Patient denies?muscle aches.?Peripheral Vascular:?Patient denies?red and blue toes.? * Medical History:? * Surgical History:? * Hospitalization/Major Diagno stic Procedure:? * Medications:?TakingAleve 220 MG Tablet 1 tablet with food or milk as needed Orally every 12 hrsTylenol 325 MG Tablet 1 tablet as needed Orally every 4 hrsTaking Aleve 220 MG Tablet 1 tablet with food or milk as needed Orally every 12 hrsTaking Tylenol 325 MG Tablet 1 tablet as needed Orally every 4 hrsNot-Taking/PRNIbuprofen 200 MG Tablet 1 tablet with food or milk as needed Orally Three times a dayVitamin D3 50 MCG (2000 UT) Capsule 1 capsule Orally Once a dayMedication List reviewed and reconciled with the patientNot-Taking/PRN Ibuprofen 200 MG Tablet 1 tablet with food or milk as needed Orally Three times a dayNot-Taking/PRN Vitamin D3 50 MCG (2000 UT) Capsule 1 capsule Orally Once a dayMedication List reviewed and reconciled with the patient * Allergies:?Metronidazole: ra walsh[Allergies Verified] Objective: * Vitals:?Ht: 62, Wt:160, BMI: 29.26, BP:152/100, Repeat BP:142/96 weight is up 3 pounds since 03-13-24. * Examination: ???General Examination: ?GENERAL APPEARANCE:? alert, well hydrated, in no distress .?HEAD:? headache is over entire head into the base of necck.?SKIN:? good turgor.?HEART:? no murmurs, rubs, gallops, regular rate and rhythm.?LUNGS:? no wheezes, rales, rhonchi, good air movement, clear to auscultation bilaterally.?ABDOMEN:? soft, nontender, nondistended very minimal tenderness in epigastric.? Assessment: * Assessment: 1.?Tension headache - G44.20 9 (Primary)?2.?Essential hypertension - I10?3.?Acute diarrhea - R19.7? Plan: * Treatment: 2.?Essential hypertension? Start Lisinopril Tablet, 10 MG, 1 tablet, Orally, Once a day, 30 day(s), 30.?? Notes: was good on this will restart, patient verbalized understanding of medication and directions for use.?? 3.?Acute diarrhea? Notes: sounds viral, will continue to monitor.?? * Procedure Codes:? * Follow Up:?3 Months * * Sign off status: Completed true * Provider:?Diego Mayes MD Date:?0 06/16/2024 Generated for Asif verdin/Yolanda/eTransmitting on:?2025 04:00 PM EST History and Physical Notes * HPI (History of Present Illness) Category Sub-Category Detail Notes Category Not es Symptom(s) patient is a 54 yo female here for 3 month follow up visit, has headache frontal for 3 days. goes away with aleve Examination Category Sub-Category Detail Notes Category Not es General Examination GENERAL APPEARANCE: alert, w ell hydrated, in no distress HEAD: headache is over ent aileen head into the base of necck HEART: no murmurs, rubs, ga llops, regular rate and rhythm LUNGS: no wheezes, rales, r honchi, good air movement, clear to auscultation bilaterally ABDOMEN: soft, nontender, non distended very minimal tenderness in epigastric SKIN: good turgor
== END 2025-01-03 15:14 | disposition home or self-care (01) ==
PROVIDERS: PCP Internal Medicine; Visit Provider Obstetrics & Gynecology
DX: Z01.419 Encounter for gynecological examination (general) (routine) without abnormal findings (principal); D25.9 Leiomyoma of uterus, unspecified; N95.0 Postmenopausal bleeding
CPT/HCPCS: 99396; 99459

== ENCOUNTER → 2025-01-03 14:47 | Outpatient (BNVA) | payer OTHER, SELFPAY | PROVIDERS: PCP Internal Medicine; Visit Provider Obstetrics & Gynecology ==

== ENCOUNTER 2025-02-20 12:59 | Outpatient (REF) | payer BC, SELFPAY ==
--- OUTSIDE RECORDS SUMMARY | 2025-02-20 15:11 | XMS_ITS | Patient Health Record ---
Author Organization [facility] Address [address] [place] [address] Care Team Providers Care Box Repairer Name Role Phone Dieog Mayes MD Primary Care Provider Taiwo Bird Jr Allergies No Known Allergies Reason For Referral No Information Medications Medication SIG (Take, Route, Frequency, Duration) Notes Start Date End Date Status MiraLax (colon prep) 8.3 ounce ((238) grams mixed with Gatorade or Crystal Light orally begin at 5:00 p.m. the day before the procedure for 1 day 05/29/2021 Active Immunizations Vaccine Route Administration Date Status Comme nts Influenza Unknown 07/23/2020 Administered Social History Tobacco Use: Social History Observation [...] Never (0 point) Points 0 Interpretation Negative Problems Problem Type SNOMED Code ICD Code Onset Dates Problem Status W/U Status Risk Notes Problem 333996899 Colon cancer screening (Z12.11) Active confirmed Problem 051597942 Encounter for other preprocedural examination (Z01.818) Active confirmed Plan Of Treatment Future Test Test Name Order Date COLONOSCOPY 05/29/2021 Insurance Providers Payer Name Payer Address Payer Phone Subscriber Number Group Number Insured Name Patient Relationship to Insured Coverage Start Date Coverage End Date [facility] [address] [facility] [place] [phone] [id number] JERAD GARCIA Self - patient is the insured Medical (General) History Medical History History ICD Code Denies [place],DM,CVA,Lung disease,renal dise ase Surgical History Surgery Date(Month/Year) tubal ligation
--- OUTSIDE RECORDS SUMMARY | 2025-02-20 15:11 | XMS_ITS ---
Author Organization Diego Mayes MD Address [address] [place] [phone] Care Team Providers Care International Sales Representative Name Role Phone Diego Mayes Primary Care [...] Location Date Provider Diagnosis Diego Mayes MD [address] [place] [address] Drive [address] [place], [place] [phone] 03/13/2024 Diego Mayes Essential hypertension I10 ; [...] Reason: Provider Name:Diego noble, 03/09/2025 07:30:00 AM, [address] [place] [address] Drive, [address], [place], [place], [phone], Provider Name:Diego noble, 03/16/2025 02:30:00 PM, [address], [address], [place], [place], [phone], Progress Notes * CALI GARCIA: 8 (54 yo F)Acc No.[id number]:03/13/2024 Progress Notes Patient:?ARNEL Garcia Provider:?Diego Mayes MD :1970???Age:54 Y???Sex:Female D ate:03/13/2024 Address:[address] [place], [place] [phone] Subjective: * Chief Complaints: * ???ANNUAL EXAMNo [...] BMI: 28.71, BP:120/82. * ???Past Orders: ???Lab:Comprehensive [place]. P bennett Fast (Order Date - 03/07/2024) [...] mg/dL ?Urine Blood Negative Negative - ?Specific [place] - Urine >= 1.030 H 1.005-1.025 - [...] normal, no murmurs.?LUNGS:?clear to auscultation bilaterally.?BREASTS:?done by photographic process attendant.?ABDOMEN:?soft, nontender, nondistended, bowel sounds present, normal, no organomegaly , no masses palpable.?RECTAL EXAM:?done by photographic process attendant.?FEMALE GENITOURINARY:?done by photographic process attendant.?EXTREMITIES:?no clubbing, cyanosis, or edema.?NEUROLOGIC:?nonfocal, motor strength normal [...] * Sign off status: Completed true * Provider:?Deigo Mayes MD Date:?0 03/13/2024 Generated for Asif verdin/Yolanda/eTransmitting on:?02/20/2025 03:11 PM EDT History and Physical Notes * HPI (History [...] exam intact SKIN: warm and dry, no akssidy picious lesions EXTREMITIES: no clubbing, cyanosi s, or edema BREASTS: done by photographic process attendant RECTAL EXAM: done by photographic process attendant FEMALE GENITOURINARY: done by photographic process attendant ORAL CAVITY: mucosa moist
--- OUTSIDE RECORDS SUMMARY | 2025-02-20 15:12 | XMS_ITS ---
Author Organization Diego Mayes MD Address [address] [place] [phone] Care Team Providers Care Technician Telecommunication Systems Name Role Phone Diego Mayes Primary Care [...] Location Date Provider Diagnosis Diego Mayes MD [address] [place] [address] Drive [address] [place], [place] [phone] 09/21/2024 Diego Mayes Encounter for immunization Z23 [...] Details Provider Name:Diego noble, 03/09/2025 07:30:00 AM, [address] [place] [address], Suite [facility], [place], [place], [phone], Provider Name:Diego noble, 03/16/2025 02:30:00 PM, [address] [place] [address], [address], [place], [place], [phone], Progress Notes * ARNEL GARCIADOB: 8 (54 yo F)Acc No.[id number]:09/21/2024 Progress Notes Patient:?JesusARNEL Provider:?Diego Mayes MD :1970???Age:54 Y???Sex:Female D ate:09/21/2024 Address:[address] [place] [address] [id number] Subjective: * Chief Complaints: * ???3 MO [...] Seema Serna on Left Deltoid * Procedure Codes:?85319 FLU V ACCINE NO PRESERV 3 & >62290 IMMUNIZATION ADMIN * Preventive Medicine:? ??Immunizations:?Influenza?Have you had a flu shot since the most recent July 23??Yes.? * * Sign off status: Completed true * Provider:?Diego Mayes MD Date:?1 Generated for Asif verdin/Yolanda/Baljeetitting on:?02/20/2025 03:11 PM EDT History and Physical [...]
--- OUTSIDE RECORDS SUMMARY | 2025-02-20 15:12 | XMS_ITS ---
Author Organization Diego Mayes MD Address [address] [place] [phone] Care Team Providers Care Hand Shoe Cutter Name Role Phone Diego Mayes Primary Care Provider [phone] Allergies Allergen (clinical drug ingredient) Drug/Non Drug [...] Problem Status W/U Status Risk Notes Problem [id number] Tension headache (G44.209) Active confirmed Vital Signs Blood pressure systolic 152 mm Hg 06/16/20 24 Blood pressure diastolic 100 mm Hg 024 Height 62 in 06/16/2024 Weight 160 lbs 06/16/2024 BMI 29.26 kg/m2 06/16/2024 weight is up 3 pounds since 03-13-24 Encounters Encounter Location Date Provider Diagnosis Diego Mayes MD [address] [place] [address] [place] [phone] 06/16/2024 Diego Mayes Tension headache G44.209 ; [...] Reason: Provider Name:Diego noble, 03/09/2025 07:30:00 AM, [address] [place] [address], Suite [facility], [place], [place], [phone], Provider Name:Diego noble, 03/16/2025 02:30:00 PM, [address] [place] [address], Suite [facility], [place], [place], [phone], Progress Notes * ARNEL GARCIADOB: 8 (54 yo F)Acc No.[id number]:06/16/2024 Progress Notes Patient:?ARNEL Garcia Provider:?Diego Mayes MD :1970???Age:54 Y???Sex:Female D ate:06/16/2024 Address:[address] [place], [place] [phone] Subjective: * Chief Complaints: * ???3 MO [...] MD Date:?0 06/16/2024 Generated for Asif verdin/Yolanda/eTransmitting on:?02/20/2025 03:11 PM [...]
== END 2025-02-20 13:00 | disposition home or self-care (01) ==
LOC: HO.MAMMO 12:59
PROVIDERS: PCP Internal Medicine; Visit Provider Internal Medicine
DX: Z12.31 Encounter for screening mammogram for malignant neoplasm of breast (principal)
CPT/HCPCS: 77063; 77067

== ENCOUNTER → 2025-02-20 13:15 | Outpatient (BNV) | payer BC, SELFPAY | PROVIDERS: PCP Internal Medicine; Visit Provider Internal Medicine | DX: Z12.31 Encounter for screening mammogram for malignant neoplasm of breast (principal) | CPT/HCPCS: 77063; 77067 ==

== ENCOUNTER 2025-02-26 16:01 | Outpatient (REF) | payer BC, SELFPAY ==
--- NOTE | ~2025-02-26 | US_ITS ---
EXAMINATION: US PELVIS TRANSABDOMINAL AND TRANSVAGINAL HISTORY: D25.9 - Leiomyoma of uterus, unspecified COMPARISON: Comparison is made with the prior examination dated 08/06/2023. TECHNIQUE: Transabdominal and endovaginal real-time 2D downing-scale ultrasound was performed. FINDINGS: Uterus: The uterus is normal in size, measuring 8.0 x 3.9 x 4.2 cm. Myometrium has a normal echotexture. Again seen is a left fundal fibroid measuring 2.3 x 2.1 x 1.9 cm (previously 2.3 x 2.7 x 1.5 cm), and a posterior fibroid measuring 3.0 x 2.1 x 2.6 cm (previously 1.4 x 1.2 x 1.8 cm). Endometrium: The endometrial stripe measures 4 mm in thickness. There are nabothian cysts in the cervix. Right ovary: The right ovary measures 2.0 x 1.8 x 1.2 cm. The right ovary is normal in size and echotexture. Left ovary: The left ovary measures 1.7 x 1.6 x 2.2 cm. The left ovary is normal in size and echotexture. Pelvic fluid: none. US/US pelvic and transvaginal IMPRESSION: Fibroid uterus as described. A posterior fibroid is larger than on the prior study. Electronically signed by: Mauricio Kilgore MD 02/27/2025 07:09 AM EDT
--- OUTSIDE RECORDS SUMMARY | 2025-02-26 18:35 | XMS_ITS ---
Author Organization Diego Mayes MD Address [address] [place] [phone] Care Team Providers Care College Director Name Role Phone Diego Mayes Primary Care [...] Location Date Provider Diagnosis Diego Mayes MD [address] [place] [address] Drive [address] [place], [place] [phone] 03/13/2024 Diego Mayes Essential hypertension I10 ; [...] Reason: Provider Name:Diego noble, 03/09/2025 07:30:00 AM, [address] [place] [address] Drive, [address], [place], [place], [phone], Provider Name:Diego noble, 03/16/2025 02:30:00 PM, [address] [facility] [address], [address], [place], [place], [phone], Progress Notes * CALI GARCIA: 8 (54 yo F)Acc No.[id number]:03/13/2024 Progress Notes Patient:?ARNEL Garcia Provider:?Diego Mayes MD :1970???Age:54 Y???Sex:Female D ate:03/13/2024 Address:[address] [place], [place] [phone] Subjective: * Chief Complaints: * ???ANNUAL EXAMNo [...] BMI: 28.71, BP:120/82. * ???Past Orders: ???Lab:Comprehensive [place]. P bennett Fast (Order Date - 03/07/2024) [...] mg/dL ?Urine Blood Negative Negative - ?Specific [place] - Urine >= 1.030 H 1.005-1.025 - [...] normal, no murmurs.?LUNGS:?clear to auscultation bilaterally.?BREASTS:?done by lay out drafter.?ABDOMEN:?soft, nontender, nondistended, bowel sounds present, normal, no organomegaly , no masses palpable.?RECTAL EXAM:?done by lay out drafter.?FEMALE GENITOURINARY:?done by lay out drafter.?EXTREMITIES:?no clubbing, cyanosis, or edema.?NEUROLOGIC:?nonfocal, motor strength normal [...] MD Date:?0 03/13/2024 Generated for Asif verdin/Yolanda/eTransmitting on:?02/26/2025 06:35 PM EDT History and Physical Notes * [...] cyanosi s, or edema BREASTS: done by lay out drafter RECTAL EXAM: done by lay out drafter FEMALE GENITOURINARY: done by lay out drafter ORAL CAVITY: mucosa moist
--- OUTSIDE RECORDS SUMMARY | 2025-02-26 18:35 | XMS_ITS ---
Author Organization Diego Mayes MD Address [address] [place] [phone] Care Team Providers Care Tip Cutter Name Role Phone Diego Mayes Primary Care Provider [phone] Allergies Allergen (clinical drug ingredient) Drug/Non Drug [...] Location Date Provider Diagnosis Diego Mayes MD [address] [place] [address] Drive [address] [place], [place] [phone] 09/21/2024 Diego Mayes Encounter for immunization Z23 [...] Details Provider Name:Diego noble, 03/09/2025 07:30:00 AM, [address] [place] [address], Suite [facility], [place], [place], [phone], Provider Name:Diego noble, 03/16/2025 02:30:00 PM, [address] [place] [address], [address], [place], [place], [phone], Progress Notes * ARNEL GARCIADOB: 8 (54 yo F)Acc No.[id number]:09/21/2024 Progress Notes Patient:?JesusARNEL Provider:?Diego Mayes MD :1970???Age:54 Y???Sex:Female D ate:09/21/2024 Address:[address] [place] [address] [id number] Subjective: * Chief Complaints: * ???3 MO [...] Seema Serna on Left Deltoid * Procedure Codes:?81939 FLU V ACCINE NO PRESERV 3 & >55888 IMMUNIZATION ADMIN * Preventive Medicine:? ??Immunizations:?Influenza?Have you had a flu shot since the most recent July 23??Yes.? * * Sign off status: Completed true * Provider:?Diego Mayes MD Date:?1 Generated for Asif verdin/Yolanda/Baljeetitting on:?02/26/2025 06:35 PM EDT History and Physical [...]
--- OUTSIDE RECORDS SUMMARY | 2025-02-26 18:35 | XMS_ITS | Patient Health Record ---
Author Organization [facility] Address [address] [place] [address] Care Team Providers Care Manager Salt Name Role Phone Diego Mayes MD Primary [...] Problem Status W/U Status Risk Notes Problem 069053018 Colon cancer screening (Z12.11) Active confirmed Problem 202291366 Encounter for other preprocedural examination (Z01.818) Active confirmed Plan Of Treatment Future Test Test Name Order Date COLONOSCOPY 05/29/2021 Insurance Providers Payer Name Payer Address Payer Phone Subscriber Number Group Number Insured Name Patient Relationship to Insured Coverage Start Date Coverage End Date [facility] [address] [facility] [place] [phone] [id number] JERAD GARCIA Self - patient is the insured Medical (General) History Medical History History ICD Code Denies [place],DM,CVA,Lung disease,renal dise ase Surgical History Surgery Date(Month/Year) tubal ligation
--- OUTSIDE RECORDS SUMMARY | 2025-02-26 18:35 | XMS_ITS ---
Author Organization Diego Mayes MD Address [address] [place] [phone] Care Team Providers Care Eap Clinician Name Role Phone Diego Mayes Primary Care [...] Problem Status W/U Status Risk Notes Problem 538488814 Tension headache (G44.209) Active confirmed Vital Signs Blood pressure systolic 152 mm Hg 06/16/20 24 Blood pressure diastolic 100 mm Hg 024 Height 62 in 06/16/2024 Weight 160 lbs 06/16/2024 BMI 29.26 kg/m2 06/16/2024 weight is up 3 pounds since 03-13-24 Encounters Encounter Location Date Provider Diagnosis Diego Mayes MD [address] [place] [address] [place] [phone] 06/16/2024 Diego Mayes Tension headache G44.209 ; [...] Reason: Provider Name:Diego noble, 03/09/2025 07:30:00 AM, [address] [place] [address], Suite [facility], [place], [phone], Provider Name:Diego noble, 03/16/2025 02:30:00 PM, [address] [place] [address], Suite [facility], [place], [place], [phone], Progress Notes * ARNEL GARCIADOB: 8 (54 yo F)Acc No.[id number]:06/16/2024 Progress Notes Patient:?ARNEL Garcia Provider:?Diego Mayes MD :1970???Age:54 Y???Sex:Female D ate:06/16/2024 Address:[address] [place], [place] [phone] Subjective: * Chief Complaints: * ???3 MO [...] MD Date:?0 06/16/2024 Generated for Asif verdin/Yolanda/eTransmitting on:?02/26/2025 06:35 PM [...]
== END 2025-02-26 16:02 | disposition home or self-care (01) ==
LOC: HO.US 16:01
PROVIDERS: PCP Internal Medicine; Visit Provider Obstetrics & Gynecology
DX: D25.9 Leiomyoma of uterus, unspecified (principal); N95.0 Postmenopausal bleeding
CPT/HCPCS: 76830; 76856

== ENCOUNTER → 2025-02-26 16:03 | Outpatient (BNV) | payer BC, SELFPAY | PROVIDERS: PCP Internal Medicine; Visit Provider Radiology Diagnostic Radiology | DX: D25.9 Leiomyoma of uterus, unspecified (principal) | CPT/HCPCS: 76830; 76856 ==

== ENCOUNTER 2025-03-09 10:36 | Outpatient (REF) | payer BC, SELFPAY ==
[2025-03-09 10:39] LABS: MANUAL DIFF FLAG NO
[2025-03-09 10:49] LABS: Basophils Absolute Auto 0.1 X10*3/uL (0.0-0.2); Basophils Percent Auto 0.7 % (0-2); Eosinophils Absolute Auto 0.1 X10*3/uL (0.0-0.4); Eosinophils Percent Auto 1.5 % (0-4); Hematocrit 41.7 % (37.0-47.0); Hemoglobin 14.4 g/dl (12.0-16.0); Imm Gran Abs Auto 0.03 X10*3/uL (0.00-0.03); Imm Gran Pct Auto 0.4 % (0.0-0.4); Lymphocytes Absolute Auto 2.5 X10*3/uL (1.2-4.9); Lymphocytes Percent Auto 31.1 % (20-40); Mean Corpuscular HGB Conc 34.5 g/dl (31.0-35.0); Mean Corpuscular Hemoglobin 31.6 pg (27.0-33.0); Mean Corpuscular Volume 91.6 fL (80.0-98.0); Mean Platelet Volume 10.3 fL (9.4-12.3); Monocytes Absolute Auto 0.4 X10*3/uL (0.1-1.2); Monocytes Percent Auto 4.7 % (2-11); Neutrophils Percent Auto 61.6 % (45-73); Platelet Count 340 X10*3/uL (160-400); Red Blood Count 4.55 X10*6/uL (4.20-5.50); Red Cell Distribution Width 12.2 % (11.0-16.0); White Blood Count 8.1 X10*3/uL (4.8-10.8)
[2025-03-09 10:57] LABS: Appearance Urine Hazy; Color Urine Yellow; Glucose Urine UA Negative (Negative); Leukocyte Esterase Urine Negative (Negative); Nitrite Urine Negative (Negative); Specific Gravity - Urine >= 1.030 (1.005-1.025); UMIC TRIGGER UACC YES; Urine Blood Small (1+) (Negative); Urine Ketones Negative (Negative); Urine Protein Negative (Neg-Trace)
[2025-03-09 11:01] LABS: Bacteria Urine 4+ (None Seen); Hyaline Casts Urine 0-2 /LPF (0-2); RBC Urine 0-2 /HPF (0-2); UACC Culture Trigger YES
[2025-03-09 11:08] LABS: Alanine Aminotransferase 22 U/L (0-31); Albumin Level 4.2 g/dL (3.5-5.0); Anion Gap 12 (12-20); Aspartate Amino Transferase 26 U/L (5-31); Bilirubin Total 0.6 mg/dL (0.0-1.0); Blood Urea Nitrogen 14 mg/dL (9-16); Calcium 9.4 mg/dL (8.4-10.2); Carbon Dioxide 26 mmol/L (22-29); Chloride 104 mmol/L (96-108); Cholesterol 286 mg/dL (<200); Estimated Glomerular Filt Rate > 60; Glucose Fasting 95 mg/dL (60-99); HDL Cholesterol 51 mg/dL (>40); LDL Cholesterol Calculated 159 mg/dL (<100); Sodium 138 mmol/L (135-145); Total Protein 7.5 g/dL (6.5-8.0); Triglycerides 382 mg/dL (<150)
[2025-03-09 11:17] LABS: Vitamin D 25-OH Total 24.6 ng/mL (>30)
--- OUTSIDE RECORDS SUMMARY | 2025-03-09 11:38 | XMS_ITS ---
Author Organization Diego Mayes MD Address [address] [place] [phone] Care Team Providers Care Laborer [place] Name Role Phone Diego Mayes Primary Care [...] Location Date Provider Diagnosis Diego Mayes MD [address] [place], [place] [phone] 09/21/2024 Diego Mayes Encounter for immunization Z23 [...] and exercise Next Appt Details Provider Name:Diego Bennett ier, 03/16/2025 02:30:00 PM, [address] [facility], [address], [place], [place], [phone], Progress Notes * ARNEL GARCIADOB: 8 (54 yo F)Acc No.[id number]:09/21/2024 Progress Notes Patient:?ARNEL Garcia Provider:?Diego Mayes MD :1970???Age:54 Y???Sex:Female D ate:09/21/2024 Address:[address] [place], [place] [phone] Subjective: * Chief Complaints: * ???3 MO [...] Seema Serna on Left Deltoid * Procedure Codes:?13748 FLU V ACCINE NO PRESERV 3 & >39841 IMMUNIZATION ADMIN * Preventive Medicine:? ??Immunizations:?Influenza?Have you had a flu shot since the most recent July 23??Yes.? * * Sign off status: Completed true * Provider:?Diego Mayes MD Date:?1 Generated for Asif verdin/Yolanda/eTransmitting on:?03/09/2025 11:38 AM EDT History and Physical Notes * HPI [...]
--- OUTSIDE RECORDS SUMMARY | 2025-03-09 11:38 | XMS_ITS | Patient Health Record ---
Author Organization Diego Mayes MD Address [address] [place], [place] [id number] Care Team Providers Care Oxygen Therapy Technician Name Role Phone Diego Mayes Primary Care Provider Allergies Allergen (clinical drug ingredient) Drug/Non Drug Allergy documented on EMR Reaction Allergy Type Onset Date Status metronidazole Metronidazole rash Drug Allergy Active Results Component Value Reference Range Notes Complete Blood Count Auto Di ff (Not yet reviewed by provider) Interpretation: Performing Lab:[facility], [address] [place] [phone] Notes/Report: White Blood Count 8.1 4.8-10.8 X10*3/uL Red Blood Count 4.55 4.20-5.50 X10*6/uL Hemoglobin 14.4 12.0-16.0 g/dl Hematocrit 41.7 37.0-47.0 % Mean Corpuscular Volume 91.6 80.0-98.0 fL Mean Corpuscular Hemoglobin 31.6 27.0-33.0 pg Mean Corpuscular HGB Conc 34.5 31.0-35.0 g/dl Red Cell Distribution Width 12.2 11.0-16.0 % Platelet Count 340 160-400 X10*3/uL Mean Platelet Volume 10.3 9.4-12.3 fL Neutrophils Percent Auto 61.6 45-73 % Imm Gran Pct Auto 0.4 0.0-0.4 % Lymphocytes Percent Auto 31.1 20-40 % Monocytes Percent Auto 4.7 2-11 % Eosinophils Percent Auto 1.5 0-4 % Basophils Percent Auto 0.7 0-2 % NRBC Pct Auto 0.0 0.0-0.2 /100WBC Neutrophils Absolute Auto 5.0 2.0-8.3 x10*3/u L Imm Gran Abs Auto 0.03 0.00-0.03 X10*3/uL Lymphocytes Absolute Auto 2.5 1.2-4.9 X10*3/u L Monocytes Absolute Auto 0.4 0.1-1.2 X10*3/uL Eosinophils Absolute Auto 0.1 0.0-0.4 X10*3/u L Basophils Absolute Auto 0.1 0.0-0.2 X10*3/uL NRBC Abs Auto 0.000 0.0-0.012 X10*3/uL UA ClnCatch+Micro w/rflx Cul t (Not yet reviewed by provider) Interpretation: Performing Lab:[facility], [address] [place] [address] [place] [address] Notes/Report: Urine, Clean Catch Color Urine Yellow Appearance Urine Hazy PH 6.0 5.0-9.0 Glucose Urine UA Negative Negative mg/dL Urine Blood Small (1+) Negative Specific [place] - Urine >= 1.030 1.005-1.025 Urine Protein Negative Neg-Trace mg/dL Urine Ketones Negative Negative mg/dL Nitrite Urine Negative Negative Leukocyte Esterase Urine Negative Negative RBC Urine 0-2 0-2 /HPF WBC Urine 6-10 0-5 /HPF Squamous Epithelial Cell Urine 11-20 0-2 /HPF Bacteria Urine 4+ None Seen Hyaline Casts Urine 0-2 0-2 /LPF MM tomosynthesis screening B I Reviewed date:02/26/2025 12:49:45 PM Interpretation: Performing Lab: Notes/Report: [address] [place] [address] Mammography Report Signed Patient: Gloria Garcia MR#: [id number] 96 : 1970 Acct:[id number] Age/Sex: 55 / F ADM Date: 02/20/25 Loc: HO.MAMMO Attending Dr: Diego Mayes MD Ordering Physician: Seun Cloud MD Results: 2Benign Findings Date of Service: 02/20/25 Follow Up: 1 Year From Orig inal Mammogram Procedure(s): MM tomosynthesis screening BI Accession Number(s): [id number] cc: Diego Mayes MD; Seun Cloud MD EXAMINATION: MM SCREENING DIGITAL BREAST TOMOSYNTHESIS, BILATERAL CLINICAL INFORMATION: Screening. Asymptomatic. COMPARISON: Mammography: Comparison is made with available priors TECHNIQUE: Digital breast mammography with tomosynthesis is performed in both the craniocaudal and mediolateral oblique views along with computer-aided detection (CAD). FINDINGS: The breasts are heterogeneously dense, which may obscure small masses (ACR BI-RADS breast composition Category c). Left marker clip. There are no significant masses, abnormal calcifications, or other abnormalities. MM/MM tomosynthesis screening BI IMPRESSION: No mammographic evidence of malignancy. ASSESSMENT: BI-RADS BI-RADS 2 - Benign Findings RECOMMENDATION: Routine annual mammography screening. 1 year F/U This examination should not preclude the clinical evaluation of a suspicious palpable abnormality. This patient's information was entered into a reminder system with a target due date for their next mammogram. Electronically signed by: Stephanie Regan DO 02/25/2025 06:54 PM EDT Dictated By: Stephanie Regan DO Signed By: <Electronically signed by Stephanie Regan DO in OV> 02/25/25 1854 DD/ 1305 TD/TT: 02/20/25 1319 Customer Experience Leader: [facility] [address] [place] [address] Mammography Report Signed Patient: Bebe Garcia MR#: [id number] 96 : 1970 Acct:[id number] Age/Sex: 55 / F ADM Date: 02/20/25 Loc: .MAMMO Attending Dr: iDego Mayes MD Ordering Physician: Seun Cloud MD Results: 2Benign Findings Date of Service: 12/16 Follow Up: 1 Year From Orig inal Mammogram Procedure(s): MM tomosynthesis screening BI Accession Number(s): [id number] cc: Diego Mayes MD; Seun Cloud MD EXAMINATION: MM SCREENING DIGITAL BREAST TOMOSYNTHESIS, BILATERAL CLINICAL INFORMATION: Screening. Asymptomatic. COMPARISON: Mammography: Compari son is made with available priors TECHNIQUE: Digital breast mammography with tomosynthesis is performed in both the craniocaudal and mediolateral oblique views along with computer-aided detection (CAD). FINDINGS: The breasts are heterogeneously dense, which may obscure small masses (ACR BI-RADS breast composition Category c). Left marker clip. There are no signifi cant masses, abnormal calcifications, or other abnormalities. M M/MM tomosynthesis screening BI IMPRESSION: No mammographic evid ence of malignancy. ASSESSMENT: BI-RADS BI-RADS 2 - Benign Findings RECOMMENDATION: Routine annual mammography screening. 1 year F/U This examination carmen uld not preclude the clinical evaluation of a suspicious palpable abnormality. This patient's information was entered into a reminder system with a target due date for their next mammogram. Electronically jalyn d by: Stephanie Regan DO 02/25/2025 06:54 PM EDT Dictated By: Stephanie Regan DO Signed By: <Electronically signed by Stephanie Regan DO in OV> 02/25/25 1854 DD/ 1305 TD/TT: 02/20/25 1319 Customer Experience Leader: US pelvic and transvaginal Reviewed date:02/27/2025 12:16:46 PM Interpretation: Performing Lab: Notes/Report: [address] [address] Ultrasound Report Signed Patient: Gloria Garcia MR#: [id number] 96 : 1970 Acct:[id number] Age/Sex: 55 / F ADM Date: 02/26/25 Loc: HO.US Attending Dr: Seun Cloud MD Ordering Physician: Seun Cloud MD Date of Service: 02/26/25 Procedure(s): US pelvic and transvaginal Accession Number(s): [id number] cc: Diego Mayes MD; Seun Cloud MD EXAMINATION: US PELVIS TRANSABDOMINAL AND TRANSVAGINAL HISTORY: D25.9 - Leiomyoma of uterus, unspecified COMPARISON: Comparison is made with the prior examination dated 08/06/2023. TECHNIQUE: Transabdominal and endovaginal real-time 2D downing-scale ultrasound was performed. FINDINGS: Uterus: The uterus is normal in size, measuring 8.0 x 3.9 x 4.2 cm. Myometrium has a normal echotexture. Again seen is a left fundal fibroid measuring 2.3 x 2.1 x 1.9 cm (previously 2.3 x 2.7 x 1.5 cm), and a posterior fibroid measuring 3.0 x 2.1 x 2.6 cm (previously 1.4 x 1.2 x 1.8 cm). Endometrium: The endometrial stripe measures 4 mm in thickness. There are nabothian cysts in the cervix. Right ovary: The right ovary measures 2.0 x 1.8 x 1.2 cm. The right ovary is normal in size and echotexture. Left ovary: The left ovary measures 1.7 x 1.6 x 2.2 cm. The left ovary is normal in size and echotexture. Pelvic fluid: none. US/US pelvic and transvaginal IMPRESSION: Fibroid uterus as described. A posterior fibroid is larger than on the prior study. Electronically signed by: Mauricio Kilgore MD 02/27/2025 07:09 AM EDT Dictated By: Mauricio Kilgore MD Signed By: <Electronically signed by Mauricio Kilogre MD in OV> 02/27/25 0709 DD/ 1620 TD/TT: 02/26/25 1650 Customer Experience Leader: [address] [address] Ultrasound Report Signed Patient: Bebe Garcia MR#: [id number] 96 : 1970 Acct:[id number] Age/Sex: 55 / F ADM Date: 02/26/25 Loc: HO.US Attending Dr: Seun Cloud MD Ordering Physician: Seun Cloud MD Date of Service: 02/26/25 Procedure(s): US pel kyung and transvaginal Accession Number(s): [id number] cc: Diego Mayes MD; Seun Cloud MD EXAMINATION: US PELV IS TRANSABDOMINAL AND TRANSVAGINAL HISTORY: D25.9 - Leiomyoma of uterus, unspecified COMPARISON: Comparis on is made with the prior examination dated 08/06/2023. TECHNIQUE: Transabdominal and endovaginal real-time 2D downing-scale ultrasound was performed. FINDINGS: Uterus: The uterus i s normal in size, measuring 8.0 x 3.9 x 4.2 cm. Myometrium has a nor mal echotexture. Again seen is a left fundal fibroid measuring 2. 3 x 2.1 x 1.9 cm (previously 2.3 x 2.7 x 1.5 cm), and a posterior fibr oid measuring 3.0 x 2.1 x 2.6 cm (previously 1.4 x 1.2 x 1.8 cm). Endometrium: The endometrial stripe measures 4 mm in thickness. There are nabothian cysts in the cervix. Right ovary: The rig ht ovary measures 2.0 x 1.8 x 1.2 cm. The right ovary is normal in s ize and echotexture. Left ovary: The left ovary measures 1.7 x 1.6 x 2.2 cm. The left ovary is normal in s ize and echotexture. Pelvic fluid: none. U S/US pelvic and transvaginal IMPRESSION: Fibroid uterus as described. A posterior fibroid is larger than on the prior study. Electronically jalyn d by: Mauricio Kilgore MD 02/27/2025 07:09 AM EDT Dictated By: Mauricio Kilgore MD Signed By: <Electronically signed by Mauricio Kilgore MD in OV> 02/27/25 0709 DD/ 1620 TD/TT: 02/26/25 1650 Customer Experience Leader: Ramiro Meredith (Not yet reviewed by provider) Interpretation: Performing Lab:[facility], [address] [facility] [facility], [place] [address] Notes/Report: Hold Gold See Note Specimen held untested for 24 hours; Call to request Chemistry testing. Reason For Referral No Information Medications Medication [...] wa s given the vaccine at [facility] in [place]. Fluarix Quadrivalent IM Intramuscular 10/28/2018 Administe red Covid Vaccine Unknown 02/15/2021 Administered SARS-COV-2 Moderna Unknown 03/15/2021 Administered Fluarix Quadrivalent IM Intramuscular 10/13/2021 Administe red Fluarix Quadrivalent IM Intramuscular 08/02/2023 Administe red Fluarix Quadrivalent - 150 IM Intramuscular 09/21/2024 Administered Flu Vaccine Unknown 09/03/2016 Refused Fluarix Quadrivalent Unknown 08/16/2017 Refused Fluarix Quadrivalent Unknown 08/31/2017 Refused Fluarix Quadrivalent Unknown 09/15/2021 Refused Social History Tobacco Use: Social History Observation [...] ast year? No Points 0 Interpretation Negative Problems Problem Type SNOMED Code ICD Code Onset Dates Problem Status W/U Status Risk Notes Problem 22950135 Vitamin D deficiency (E55.9) Active confirmed Problem 22548729 Essential hypertension (I10) Active confirmed Problem 18796522 Memory loss (R41.3) Active confirmed Problem 960222920 Elevated triglycerides with high cholesterol (E78.2) Active confirmed Problem 044597941062939 Perimenopausal (N95.1) Active confirmed Problem 347089305 Abnormal mammogram (R92.8) Active confirmed Problem 264457845 Tension headache (G44.209) Active confirmed Problem 48343706 Dysthymia (F34.1) Active confirmed Problem 662932158 Vaginal bleeding (N93.9) Active confirmed Problem 06432281376679164 Arm paresthesi a, left (R20.2) Active confirmed Problem Menopausal symptom (50485601) Hot flashes due to menopause (N95.1) Active confirmed Vital Signs Blood pressure diastolic 92 mm Hg 09/21/2024 abhishek ght is up 4 pounds since 06-16-24 Height 62 in 09/21/2024 weight is up 4 pounds since 06-16-24 Blood pressure systolic 144 mm Hg 09/21/2024 weig ht is up 4 pounds since 06-16-24 Weight 164 lbs 09/21/2024 weight is up 4 pounds since 06-16-24 BMI 29.99 kg/m2 09/21/2024 weight is up 4 pounds since 06-16-24 Encounters Encounter Location Date Provider Diagnosis Diego Mayes MD [address] [place] [phone] 03/09/2025 Diego Mayes Blood tests for routine general physical examination Z00.00 ; Elevated triglycerides with high cholesterol E78.2 ; Vitamin D deficiency E55.9 and Essential hypertension I10 Diego Mayes MD [address] [place] [address] Drive [address] [place] [id number] 03/13/2024 Diego Mayes Essential hypertension I10 ; Annual physical exam Z00.00 ; Vitamin D deficiency E55.9 ; Injury of head, sequela S09.90XS ; Elevated triglycerides with high cholesterol E78.2 and Depression screening Z13.31 Diego Mayes MD [address] [place] [phone] 06/16/2024 Diego Mayes Tension headache G44.209 ; Essential hypertension I10 and Acute diarrhea R19.7 Diego Mayes MD [address] [place] [phone] 09/21/2024 Diego Mayes Encounter for immunization Z23 and Essential hypertension I10 Assessments Encounter Date Diagnosis (ICD Code) Assessment Notes Treatment Notes Treatment Clinical Notes Section Notes 03/09/2025 Blood tests for routine general physical examination (ICD-10 - Z00.00) 03/13/2024 Essential hypertension (ICD-10 - I10) has been off lisinopril for over one month and bp is fine, will continue to monitor 03/13/2024 Annual physical exam (ICD-10 - Z00.00) lans reviewedand discussed with patient 06/16/2024 Tension headache (ICD-10 - G44.209) will just observe 06/16/2024 Essential hypertension (ICD-10 - I10) was good on this will restart, patient verbalized understanding of medication and directions for use 09/21/2024 Encounter for immunization (ICD-10 - Z23) flu vACCINE ADMINISTERED 09/21/2024 Essential hypertension (ICD-10 - I10) well controlled on meds. advised to lose weight and exercise 03/09/2025 Elevated triglycerides with high cholesterol (ICD-10 - E78.2) 03/13/2024 Vitamin D deficiency (ICD-10 - E55.9) needs to take vitamin 2000 units 06/16/2024 Acute diarrhea (ICD-10 - R19.7) sounds viral, will continue to monitor 03/09/2025 Vitamin D deficiency (ICD-10 - E55.9) 03/13/2024 Injury of head, sequela (ICD-10 - S09.90XS) no treatment needed will observe 03/09/2025 Essential hypertension (ICD-10 - I10) 03/13/2024 Elevated triglycerides with high cholesterol (ICD-10 - E78.2) stable, will continue to monitor 03/13/2024 Depression screening (ICD-10 - Z13.31) negative screen Plan Of Treatment Pending Test Test Name Order Date URINALYSIS + MICROSCOPIC 12/13/2018 MAMMOGRAM DIGITAL BILATERAL SCREEN 08/27 MAMMOGRAM DIGITAL BILATERAL SCREEN 03/06 US LEG LT VENOUS DOPPLER 10/09/2021 ECHO 03/10/2022 Complete Blood Count Auto Diff Comprehensive [place]. Panel Fast Lipid Panel 03/09/2025 Vitamin D 25-OH Total 03/09/2025 Hold Gold 03/09/2025 XR DEXA axial skeleton 03/06/2021 UA ClnCatch+Micro w/rflx Cult 03/09/2025 Next Appt Details Provider Name:Diego noble, 03/16/2025 02:30:00 PM, [address] [place] [address], [address], [place], [place], [phone], Insurance Providers Payer Name Payer Address Payer Phone Subscriber Number Group Number Insured Name Patient Relationship to Insured Coverage Start Date Coverage End Date [employer] [facility] [address] [place], [place] [id number] [facility] - [facility] is the insured Medical (General) History Medical History History ICD Code 09/2016 HX of breast lump hematuria evaluation 2017 colonoscopy 10/24/21 repeat 10 2030
--- OUTSIDE RECORDS SUMMARY | 2025-03-09 11:38 | XMS_ITS ---
Author Organization Diego Mayes MD Address [address] [place] [phone] Care Team Providers Care Car Bracer Name Role Phone Diego Mayes Primary Care [...] Problem Status W/U Status Risk Notes Problem 753945257 Tension headache (G44.209) Active confirmed Vital Signs Blood pressure systolic 152 mm Hg 06/16/20 24 Blood pressure diastolic 100 mm Hg 024 Height 62 in 06/16/2024 Weight 160 lbs 06/16/2024 BMI 29.26 kg/m2 06/16/2024 weight is up 3 pounds since 03-13-24 Encounters Encounter Location Date Provider Diagnosis Diego Mayes MD [address] [place] [address] Drive [address] [place], [place] [phone] 06/16/2024 Diego Mayes Tension headache G44.209 ; [...] Follow Up: 3 Months, Reason: Provider Name:Diego raor, 03/16/2025 02:30:00 PM, [address] [facility], [address], [place], [place], [phone], Progress Notes * ARNEL GARCIADOB: 8 (54 yo F)Acc No.[id number]:06/16/2024 Progress Notes Patient:?ARNEL Garcia Provider:?Diego Mayes MD :1970???Age:54 Y???Sex:Female D ate:06/16/2024 Address:[address] [place] [address] [id number] Subjective: * Chief Complaints: * ???3 MO [...] Mayes MD Date:?0 06/16/2024 Generated for Asif verdin/Yolanda/eTgmsmitting on:?03/09/2025 11:37 AM EDT History and Physical Notes * [...]
--- OUTSIDE RECORDS SUMMARY | 2025-03-09 11:38 | XMS_ITS | Patient Health Record ---
Author Organization [facility] Address [address] [place] [address] Care Team Providers Care Stamp Press Operator Name Role Phone Diego Mayes MD Primary [...] Problem Status W/U Status Risk Notes Problem 171970709 Colon cancer screening (Z12.11) Active confirmed Problem 384355736 Encounter for other preprocedural examination (Z01.818) Active confirmed Plan Of Treatment Future Test Test Name Order Date COLONOSCOPY 05/29/2021 Insurance Providers Payer Name Payer Address Payer Phone Subscriber Number Group Number Insured Name Patient Relationship to Insured Coverage Start Date Coverage End Date [facility] [address] [facility] [place] [phone] [id number] JERAD GARCIA Self - patient is the insured Medical (General) History Medical History History ICD Code Denies [place],DM,CVA,Lung disease,renal dise ase Surgical History Surgery Date(Month/Year) tubal ligation
--- OUTSIDE RECORDS SUMMARY | 2025-03-09 11:38 | XMS_ITS ---
Author Organization Diego Mayes MD Address [address] [place], [place] [phone] Care Team Providers Care Design Specialist Name Role Phone Diego Mayes Primary Care Provider [phone] Results Component Value Reference Range Notes Complete Blood Count Auto Di ff (Not yet reviewed by provider) Interpretation: Performing Lab:[facility], [address] [place] [phone] Notes/Report: White Blood Count 8.1 4.8-10.8 X10*3/uL [...] (Not yet reviewed by provider) Interpretation: Performing Lab:[facility], [address] [place] [phone] Notes/Report: Urine, Clean Catch Color Urine Yellow Appearance Urine Hazy PH 6.0 5.0-9.0 Glucose Urine UA Negative Negative mg/dL Urine Blood Small (1+) Negative Specific [place] - Urine >= 1.030 1.005-1.025 Urine Protein Negative Neg-Trace mg/dL Urine Ketones Negative Negative mg/dL Nitrite Urine Negative Negative Leukocyte Esterase Urine Negative Negative RBC Urine 0-2 0-2 /HPF WBC Urine 6-10 0-5 /HPF Squamous Epithelial Cell Urine 11-20 0-2 /HPF Bacteria Urine 4+ None Seen Hyaline Casts Urine 0-2 0-2 /LPF REASON FOR VISIT FASTING LABS Encounters Encounter Location Date Provider Diagnosis Diego Mayes MD [address] [place], [place] [phone] 03/09/2025 Diego Mayes Blood tests for routine general physical examination Z00.00 ; Elevated triglycerides with high cholesterol E78.2 ; Vitamin D deficiency E55.9 and Essential hypertension I10 Assessments Encounter Date Diagnosis (ICD Code) Assessment Notes Treatment Notes Treatment Clinical Notes Section Notes 03/09/2025 Blood tests for routine general physical examination (ICD-10 - Z00.00) 03/09/2025 Elevated triglycerides with high cholesterol (ICD-10 - E78.2) 03/09/2025 Vitamin D deficiency (ICD-10 - E55.9) 03/09/2025 Essential hypertension (ICD-10 - I10) Plan Of Treatment Pending Test Test Name Order Date Complete Blood Count Auto Diff 5 Comprehensive [place]. Panel Fast 5 Lipid Panel 03/09/2025 Vitamin D 25-OH Total 03/09/2025 UA ClnCatch+Micro w/rflx Cult 03/09/2025 Next Appt Details Provider Name:Diego Bennett ier, 03/16/2025 02:30:00 PM, [address] [facility], [address], [place], [place], [phone], Progress Notes * ARNEL GARCIADOB: 8 (55 yo F)Acc No.[id number]:03/09/2025 Progress Note Patient:?ARNEL GARCIA Provider:?Diego Mayes MD :1970???Age:55 Y???Sex:Female D ate:03/09/2025 Address:[address] [place], [place] [id number] Subjective: * Chief Complaints: * ???1. FASTING LABS. * Medical History:? Objective: * Vitals:? Assessment: * Assessment: 1.?Blood tests for routine g eneral physical examination - Z00.00 (Primary)???2.?Elevated triglycerides with high cholesterol - E78.2???3.?Vitamin D deficiency - E55.9???4.?Essential hypertension - I10??? Plan: * Treatment: 2.?Elevated triglycerides wi th high cholesterol?LAB: Complete Blood Count Auto Diff (Collection Date & Time - 03/09/2025 07:30 AM) ?LAB: Comprehensive [place]. Panel Fast ?LAB: Lipid Panel ?LAB: Vitamin D 25-OH Total ?LAB: UA ClnCatch+Micro w/rflx Cult (Collection Date & Time - 03/09/2025 07:30 AM) 3.?Vitamin D deficiency?LAB: Complete Blood Count Auto Diff (Collection Date & Time - 03/09/2025 07:30 AM) ?LAB: Comprehensive [place]. Panel Fast ?LAB: Lipid Panel ?LAB: Vitamin D 25-OH Total ?LAB: UA ClnCatch+Micro w/rflx Cult (Collection Date & Time - 03/09/2025 07:30 AM) 4.?Essential hypertension?LAB: Complete Blood Count Auto Diff (Collection Date & Time - 03/09/2025 07:30 AM) ?LAB: Comprehensive [place]. Panel Fast ?LAB: Lipid Panel ?LAB: Vitamin D 25-OH Total ?LAB: UA ClnCatch+Micro w/rflx Cult (Collection Date & Time - 03/09/2025 07:30 AM) * Procedure Codes:?02627 VENIP UNCT, ROUTINE* * * The named appointment provid er may or may not be the originator of this progress note, and it is not deemed complete until electronically signed by the appointment provider. Sign off status: Pending * Provider:?Diego Mayes MD Date:?0 03/09/2025 Generated for Asif verdin/Yolanda/Baljeetitting on:?03/09/2025 11:38 AM EDT
[2025-03-09 19:48] LABS: Alkaline Phosphatase 73 U/L (39-117)
== END 2025-03-09 10:37 | disposition home or self-care (01) ==
LOC: HO.LNP 10:36
PROVIDERS: Visit Provider Internal Medicine
DX: Z00.00 Encounter for general adult medical examination without abnormal findings (principal); E78.2 Mixed hyperlipidemia; E55.9 Vitamin D deficiency, unspecified; I10 Essential (primary) hypertension; R82.90 Unspecified abnormal findings in urine
CPT/HCPCS: 80053; 80061; 81001; 82306; 85025; 87086

== ENCOUNTER 2025-03-15 10:43 | Outpatient (AMB) | payer BC, SELFPAY ==
--- NOTE | 2025-03-15 10:47 | MHC.OFFVIS ---
Intake Visit Reasons: Ultrasound follow up/? EMB Accompanied by: Self / Same As Patient Allergies metronidazole Allergy (Intermediate, Verified 03/15/25 10:48) Rash Is last menstrual period known: No Post menopausal: Yes Patient : No HPI Comments Details: Presenting for ultrasound follow-up for 1 episode of postmenopausal bleeding. Pelvic ultrasound showed the following: Uterus: The uterus is normal in size, measuring 8.0 x 3.9 x 4.2 cm. Myometrium has a normal echotexture. Again seen is a left fundal fibroid measuring 2.3 x 2.1 x 1.9 cm (previously 2.3 x 2.7 x 1.5 cm), and a posterior fibroid measuring 3.0 x 2.1 x 2.6 cm (previously 1.4 x 1.2 x 1.8 cm). Endometrium: The endometrial stripe measures 4 mm in thickness. There are nabothian cysts in the cervix. Right ovary: The right ovary measures 2.0 x 1.8 x 1.2 cm. The right ovary is normal in size and echotexture. Left ovary: The left ovary measures 1.7 x 1.6 x 2.2 cm. The left ovary is normal in size and echotexture. Pelvic fluid: none. [facility] Medical History No pertinent past medical history COVID-19 vaccine series completed History of COVID-19 Surgical History Hx of section Hx of tubal ligation Family History Father Diabetes HTN (hypertension) Mother Diabetes HTN (hypertension) Asthma CHF (congestive heart failure) Maternal Aunt Stroke Social History Household Members: Spouse Household Members Other:: son Housing: House Are you a primary healthcare associate to a significant other at home: No Do you presently have visiting nurse or other home services: No Alcohol intake: current Alcohol intake frequency: a few times a week Patient Tobacco Use Status: Former Tobacco user Patient : No Current occupational status: employed Current occupation: [employer] Sexual orientation: Straight/Heterosexual Gender identity: Female Review of Systems Const All systems reviewed & are unremarkable except as noted in HPI and below Reports as per HPI and Reports no additional complaints GI Reports no additional complaints Reports no additional complaints Assessment & Plan Assessment & Plan (1) Postmenopausal bleeding: Code(s): N95.0 - Postmenopausal bleeding Category: Medical Plan: Discussed with the patient the results of the pelvic ultrasound showing an endometrial stripe thickness of 4 mm. Explained to the patient with an endometrial stripe of 4 mm &/or less, there is a high negative predictive value in detecting endometrial pathology including endometrial hyperplasia, polyps or malignancy. Therefore, there is no indication for endometrial sampling. Discussed with the patient the sensitivity, specificity, and positive and the negative predictive value of using ultrasound in detecting endometrial pathology. The patient was instructed to call if bleeding recurs, will proceed with endometrial sampling out endometrial pathology. All questions were answered and the patient verbalized understanding and agreed with the plan. (2) Uterine myoma: Code(s): D25.9 - Leiomyoma of uterus, unspecified Category: Medical Plan: Discussed with the patient the findings on pelvic ultrasound & the risk of myosarcoma; in addition reviewed with the patient that malignancy and pre malignancy cannot be ruled out without hysterectomy for pathological evaluation ; furthermore, explained to the patient the limitation of pelvic ultrasound and endometrial biopsy in the setting. Discussed with the patient the options of treatment including expectant management versus hysterectomy; the pros and cons, risks benefits of each approach were discussed with the patient including the fact that in cases of myosarcoma, surgical treatment can lead to early diagnosis and positively affects the prognosis; after further discussion, the patient decided to proceed with expectant management. Will repeat pelvic ultrasound periodically. Instructions given to patient to call in case any of the following occurs: pressure symptoms, abnormal uterine bleeding, pelvic pain; and to schedule a 3 months pelvic ultrasound (order placed) and a follow-up appointment . All questions answered, the patient verbalized understanding and agreed with the plan . Orders: Orders US pelvic and transvaginal 3 Months D25.9 - Leiomyoma of uterus, unspecified Coding Level of Care Code Est Pt Level 3 (60627) Diagnoses Postmenopausal bleeding N95.0 Uterine myoma D25.9
--- OUTSIDE RECORDS SUMMARY | 2025-03-15 12:31 | XMS_ITS ---
Author Organization Diego Mayes MD Address [address] [place] [phone] Care Team Providers Care Display Coordinator Name Role Phone Diego Mayes Primary Care Provider [phone] Allergies Allergen (clinical drug ingredient) Drug/Non Drug [...] Date Provider Diagnosis Diego Mayes MD [address] [place], [place] [phone] 09/21/2024 Diego Mayes Encounter for immunization Z23 [...] Next Appt Details Provider Name:Diego Bennett ier, 03/19/2025 09:30:00 AM, [address] [place] [address], [address], [place], [place], [phone], Progress Notes * ARNEL GARCIADOB: 8 (54 yo F)Acc No.[id number]:09/21/2024 Progress Notes Patient:?ARNEL Garcia Provider:?Diego Mayes MD :1970???Age:54 Y???Sex:Female D ate:09/21/2024 Address:[address] [place], [place] [phone] Subjective: * Chief Complaints: * ???3 MO [...] Seema Serna on Left Deltoid * Procedure Codes:?52909 FLU V ACCINE NO PRESERV 3 & >01462 IMMUNIZATION ADMIN * Preventive Medicine:? ??Immunizations:?Influenza?Have you had a flu shot since the most recent July 23??Yes.? * * Sign off status: Completed true * Provider:?Diego Mayes MD Date:?1 Generated for Asif verdin/Yolanda/eTransmitting on:?03/15/2025 12:31 PM EDT History and Physical Notes * [...]
--- OUTSIDE RECORDS SUMMARY | 2025-03-15 12:31 | XMS_ITS ---
Author Organization Diego Mayes MD Address [address] [place], [place] [phone] Care Team Providers Care Collection Support Specialist Name Role Phone Diego Mayes Primary Care Provider [phone] Results Component Value Reference Range Notes UA ClnCatch+Micro w/rflx Cul t (Not yet reviewed by provider) Interpretation:03-16-25 Performing Lab:[facility], [address] [place] [phone] Notes/Report: Urine, Clean Catch Color Urine Yellow Appearance Urine Hazy PH 6.0 5.0-9.0 Glucose Urine UA Negative Negative mg/dL Urine Blood Small (1+) Negative Specific [place] - Urine >= 1.030 1.005-1.025 Urine Protein Negative Neg-Trace mg/dL Urine Ketones Negative Negative mg/dL Nitrite Urine Negative Negative Leukocyte Esterase Urine Negative Negative RBC Urine 0-2 0-2 /HPF WBC Urine 6-10 0-5 /HPF Squamous Epithelial Cell Urine 11-20 0-2 /HPF Bacteria Urine 4+ None Seen Hyaline Casts Urine 0-2 0-2 /LPF Complete Blood Count Auto Di ff Reviewed date:03/09/2025 07:22:28 PM Interpretation: Performing Lab:[facility], [address] [place] [phone] Notes/Report: White Blood Count 8.1 4.8-10.8 X10*3/uL [...] NRBC Abs Auto 0.000 0.0-0.012 X10*3/uL Comprehensive [place]. Panel Fa st Reviewed date:03/12/2025 04:30:17 PM Interpretation: Performing Lab:[facility], [address] [place] [phone] Notes/Report: Sodium 138 135-145 mmol/L Potassium 4.0 3.3-5.1 mmol/L Chloride 104 96-108 mmol/L Carbon Dioxide 26 22-29 mmol/L Anion Gap 12 12-20 Blood Urea Nitrogen 14 9-16 mg/dL Creatinine 0.70 0.5-1.4 mg/dL Estimated Glomerular Filt Rate > 60 Chronic Kidney Disease: Estimated GFR < 60 mL/min/1.73m2 Severe Kidney Disease: Estimated GFR < 15 mL/min/1.73m2 Glucose Fasting 95 60-99 mg/dL Calcium 9.4 8.4-10.2 mg/dL Bilirubin Total 0.6 0.0-1.0 mg/dL Aspartate Amino Transferase 26 5-31 U/L Alanine Aminotransferase 22 0-31 U/L Total Protein 7.5 6.5-8.0 g/dL Albumin Level 4.2 3.5-5.0 g/dL Alkaline Phosphatase 73 39-117 U/L Lipid Panel Reviewed date:03/12/2025 04:27:14 PM Interpretation: Performing Lab:[facility], [address] [place] [phone] Notes/Report: Triglycerides 382 <150 mg/dL Desirable Triglyceride: less than 150 mg/dL Borderline High Triglyceride 150-199 mg/dL High Triglyceride: 200-499 mg/dL Very High Triglyceride: greater than or equal to 5OO mg/dL Cholesterol 286 <200 mg/dL Desirable Cholesterol: less than 200 mg/dL Borderline High Cholesterol: 200-239 mg/dL High Cholesterol: greater than 239 mg/dL LDL Cholesterol Calculated 159 <100 mg/dL Desirable LDL: less than 100 mg/dL Near Optimal/Above Optimal LDL: 110-129 mg/dL Borderline High LDL: 130-159 mg/dL High LDL: 160-189 mg/dL Very High LDL: greater than or equal to 190 mg/dL HDL Cholesterol 51 >40 mg/dL Desirable HDL: greater than 40 mg/dL Note: This HDL assay may give artificially low results in patients with liver disease. Vitamin D 25-OH Total Reviewed date:03/12/2025 04:27:23 PM Interpretation: Performing Lab:[facility], [address] [place] [phone] Notes/Report: Vitamin D 25-OH Total 24.6 >30 ng/mL Health Based Reference Values* < 20 ng/mL Deficient 20-30 ng/mL Insufficient > 30 ng/mL Sufficient *Tanya ELIZABETH. N Engl J Med. 2007;357:266-280 There is no well-established upper level of normal vitamin D levels. Some laboratories use 50 ng/mL as an upper limit of normal. However, toxicity is patient-dependent and may occur at any level. Careful correlation with the patient's presentation is necessary and, if there is concern for vitamin D toxicity, treatment should be considered irrespective of the serum level. Care must be taken in interpreting Vitamin [...] confirmed with another method such as LC-MS/MS. REASON FOR VISIT FASTING LABS Encounters Encounter Location Date Provider Diagnosis Diego Mayes MD [address] [place] [address] [address] [place], [place] [phone] 03/09/2025 Diego Mayes Blood tests for routine [...] Treatment Pending Test Test Name Order Date UA ClnCatch+Micro w/rflx Cult 03/09/2025 Next Appt Details Provider Name:Diego noble, 03/19/2025 09:30:00 AM, [address] [place] [address], [address], [place], [place], [phone], Progress Notes * ARNEL GARCIADOB: 8 (55 yo F)Acc No.[id number]:03/09/2025 Progress Note Patient:?ARNEL GARCIA Provider:?Diego Mayes MD :1970???Age:55 Y???Sex:Female D ate:03/09/2025 Address:[address] [place] [address] JESSI Huggins [facility] Subjective: * Chief Complaints: * ???1. FASTING LABS. * Medical History:? Objective: * Vitals:? Assessment: * Assessment: 1.?Blood tests for routine g eneral physical examination - Z00.00 (Primary)???2.?Elevated triglycerides with high cholesterol - E78.2???3.?Vitamin D deficiency - E55.9???4.?Essential hypertension - I10??? Plan: * Treatment: 2.?Elevated triglycerides wi th high cholesterol?LAB: UA ClnCatch+Micro w/rflx Cult (Collection Date & Time - 03/09/2025 07:30 AM) ?LAB: Complete Blood Count Auto Diff (Collection Date & Time - 03/09/2025 07:30 AM) ?LAB: Comprehensive [place]. Panel Fast (Collection Date & Time - 03/09/2025 07:30 AM) ?LAB: Lipid Panel (Collection Date & Time - 03/09/2025 07:30 AM) ?LAB: Vitamin D 25-OH Total (Collection Date & Time - 03/09/2025 07:30 AM) 3.?Vitamin D deficiency?LAB: UA ClnCatch+Micro w/rflx Cult (Collection Date & Time - 03/09/2025 07:30 AM) ?LAB: Complete Blood Count Auto Diff (Collection Date & Time - 03/09/2025 07:30 AM) ?LAB: Comprehensive [place]. Panel Fast (Collection Date & Time - 03/09/2025 07:30 AM) ?LAB: Lipid Panel (Collection Date & Time - 03/09/2025 07:30 AM) ?LAB: Vitamin D 25-OH Total (Collection Date & Time - 03/09/2025 07:30 AM) 4.?Essential hypertension?LAB: UA ClnCatch+Micro w/rflx Cult (Collection Date & Time - 03/09/2025 07:30 AM) ?LAB: Complete Blood Count Auto Diff (Collection Date & Time - 03/09/2025 07:30 AM) ?LAB: Comprehensive [place]. Panel Fast (Collection Date & Time - 03/09/2025 07:30 AM) ?LAB: Lipid Panel (Collection Date & Time - 03/09/2025 07:30 AM) ?LAB: Vitamin D 25-OH Total (Collection Date & Time - 03/09/2025 07:30 AM) * Procedure Codes:?45858 VENIP UNCT, ROUTINE* * * The named appointment provid er may or may not be the originator of this progress note, and it is not deemed complete until electronically signed by the appointment provider. Sign off status: Pending * Provider:?Diego Mayes MD Date:?0 03/09/2025 Generated for Asif verdin/Yolanda/Baljeetitting on:?03/15/2025 12:31 PM EDT
--- OUTSIDE RECORDS SUMMARY | 2025-03-15 12:31 | XMS_ITS | Patient Health Record ---
Author Organization [facility] Address [address] [place] [address] Care Team Providers Care Piper Helper Name Role Phone Diego Mayes MD Primary [...] Problem Status W/U Status Risk Notes Problem 681203564 Colon cancer screening (Z12.11) Active confirmed Problem 416229855 Encounter for other preprocedural examination (Z01.818) Active confirmed Plan Of Treatment Future Test Test Name Order Date COLONOSCOPY 05/29/2021 Insurance Providers Payer Name Payer Address Payer Phone Subscriber Number Group Number Insured Name Patient Relationship to Insured Coverage Start Date Coverage End Date [facility] [address] [facility] [place] [phone] [id number] JERAD GARCIA Self - patient is the insured Medical (General) History Medical History History ICD Code Denies RI,DM,CVA,Lung disease,renal dise ase Surgical History Surgery Date(Month/Year) tubal ligation
--- OUTSIDE RECORDS SUMMARY | 2025-03-15 12:31 | XMS_ITS ---
Author Organization Diego Mayes MD Address [address] [place] [phone] Care Team Providers Care Lawn Mower Name Role Phone Diego Mayes Primary Care [...] Problem Status W/U Status Risk Notes Problem 674336354 Tension headache (G44.209) Active confirmed Vital Signs Blood pressure systolic 152 mm Hg 06/16/20 24 Blood pressure diastolic 100 mm Hg 024 Height 62 in 06/16/2024 Weight 160 lbs 06/16/2024 BMI 29.26 kg/m2 06/16/2024 weight is up 3 pounds since 03-13-24 Encounters Encounter Location Date Provider Diagnosis Diego Mayes MD [address] [place] [address] [address] [place], [place] [phone] 06/16/2024 Diego Mayes Tension headache G44.209 ; [...] Up: 3 Months, Reason: Provider Name:Diego raor, 03/19/2025 09:30:00 AM, [address] [place] [address], [address], [place], [place], [phone], Progress Notes * ARNEL GARCIADOB: 8 (54 yo F)Acc No.[id number]:06/16/2024 Progress Notes Patient:?ARNEL Garcia Provider:?Diego Mayes MD :1970???Age:54 Y???Sex:Female D ate:06/16/2024 Address:[address] [place] [address] [facility] Subjective: * Chief Complaints: * ???3 MO [...] Mayes MD Date:?0 06/16/2024 Generated for Asif verdin/Yolanda/Baljeetitting on:?03/15/2025 12:31 PM EDT History and Physical [...]
--- OUTSIDE RECORDS SUMMARY | 2025-03-15 12:32 | XMS_ITS | Patient Health Record ---
Author Organization Diego Mayes MD Address [address] [place], [place] [phone] Care Team Providers Care Entry Level Software Developer Name Role Phone Diego Mayes Primary Care Provider Allergies Allergen (clinical drug ingredient) Drug/Non Drug Allergy documented on EMR Reaction Allergy Type Onset Date Status metronidazole Metronidazole rash Drug Allergy Active Results Component Value Reference Range Notes UA ClnCatch+Micro w/rflx Cul t (Not yet reviewed by provider) Interpretation:03-16-25 Performing Lab:[address] [phone] Notes/Report: Urine, Clean Catch Color Urine Yellow Appearance Urine Hazy PH 6.0 5.0-9.0 Glucose Urine UA Negative Negative mg/dL Urine Blood Small (1+) Negative Specific [place] - Urine >= 1.030 1.005-1.025 Urine Protein [...] ff Reviewed date:03/09/2025 07:22:28 PM Interpretation: Performing Lab:[facility], [address] [place] [phone] Notes/Report: White Blood Count 8.1 4.8-10.8 X10*3/uL [...] 0.0-0.2 /100WBC Neutrophils Absolute Auto 5.0 2.0-8.3 x10*3/uL Imm Gran Abs Auto 0.03 0.00-0.03 X10*3/uL Lymphocytes Absolute Auto 2.5 1.2-4.9 X10*3/uL Monocytes Absolute Auto 0.4 0.1-1.2 X10*3/uL Eosinophils Absolute Auto 0.1 0.0-0.4 X10*3/uL Basophils Absolute Auto 0.1 0.0-0.2 X10*3/uL NRBC Abs Auto 0.000 0.0-0.012 X10*3/uL Comprehensive [place]. Panel Fa st Reviewed date:03/12/2025 04:30:17 PM Interpretation: Performing Lab:[facility], [address] [place] [phone] Notes/Report: Sodium 138 135-145 mmol/L Potassium 4.0 [...] Panel Reviewed date:03/12/2025 04:27:14 PM Interpretation: Performing Lab:[facility], [address] [place] [phone] Notes/Report: Triglycerides 382 <150 mg/dL Desirable Triglyceride: [...] Total Reviewed date:03/12/2025 04:27:23 PM Interpretation: Performing Lab:[address] [phone] Notes/Report: Vitamin D 25-OH Total 24.6 >30 [...] confirmed with another method such as LC-MS/MS. MM tomosynthesis screening B I Reviewed date:02/26/2025 12:49:45 PM Interpretation: Performing Lab: Notes/Report: [place] [place] [address] Mammography Report Signed Patient: Gloria Garcia MR#: [id number] 96 : 1970 Acct:[id number] Age/Sex: 55 / F ADM Date: 02/20/25 Loc: HO.MAMMO Attending Dr: Diego Mayes MD Ordering Physician: Seun Cloud MD Results: 2Benign Findings Date of Service: 02/20/25 Follow Up: 1 Year From [facility] Mammogram Procedure(s): MM tomosynthesis screening BI Accession Number(s): [id number] cc: Diego Mayes MD; Seun Cloud MD [...] Stephanie Regan DO 02/25/2025 06:54 PM EDT RP Dictated By: Stephanie Regan DO Signed By: <Electronically signed by Stephanie Regan DO in OV> 02/25/25 1854 DD/ 1305 TD/TT: 02/20/25 1319 Controlled Atmospheric Furnace Brazer: [facility] [address] [place] [address] Mammography Report Signed Patient: Bebe Garcia MR#: [id number] 96 : 1970 Acct:[id number] Age/Sex: 55 / F ADM Date: 02/20/25 Loc: HO.MAMMO Attending Dr: Diego Mayes MD Ordering Physician: Seun Cloud MD Results: 2Benign Findings Date of Service: 02/20/25 Follow Up: 1 Year From [facility] Mammogram Procedure(s): MM tomosynthesis screening BI Accession Number(s): [id number] cc: Diego Mayes MD; Seun Cloud MD [...] Stephanie Regan DO 02/25/2025 06:54 PM EDT RP Dictated By: Stephanie Regan DO Signed By: <Electronically signed by Stephanie Regan DO in OV> 02/25/25 1854 DD/ 1305 TD/TT: 02/20/25 1319 Controlled Atmospheric Furnace Brazer: US pelvic and transvaginal Reviewed date:02/27/2025 12:16:46 PM Interpretation: Performing Lab: Notes/Report: [address] [address] Ultrasound Report Signed Patient: Gloria Garcia MR#: [id number] 96 : 1970 Acct:[id number] Age/Sex: 55 / F ADM Date: 02/26/25 Loc: HO.US Attending Dr: Seun Cloud MD Ordering Physician: Seun Cloud MD Date of Service: 02/26/25 Procedure(s): US pelvic and transvaginal Accession Number(s): [id number] cc: Diego Mayes MD; Seun Cloud MD [...] Mauricio Kilgore MD 02/27/2025 07:09 AM EDT RP Dictated By: Mauricio Kilgore MD Signed By: <Electronically signed by Mauricio Kilgore MD in OV> 02/27/25 0709 DD/ 1620 TD/TT: 02/26/25 1650 Controlled Atmospheric Furnace Brazer: [place] [address] Ultrasound Report Signed Patient: Bebe Garcia MR#: [id number] 96 : 1970 Acct:[id number] Age/Sex: 55 / F ADM Date: 02/26/25 Loc: .US Attending Dr: Seun Cloud MD Ordering Physician: Seun Cloud MD Date of Service: 02/26/25 Procedure(s): US pel kyung and transvaginal Accession Number(s): [id number] cc: Diego Mayes MD; Seun Cloud MD [...] s ize and echotexture. Pelvic fluid: none. ___ US/US pelvic and transvaginal IMPRESSION: Fibroid uterus as described. A posterior fibroid is larger than on the prior study. Electronically jalyn d by: Mauricio Kilgore MD 02/27/2025 07:09 AM EDT Dictated By: Mauricio Kilgore MD Signed By: <Electronically signed by Mauricio Kilgore MD in OV> 02/27/25 0709 DD/ 1620 TD/TT: 02/26/25 1650 Controlled Atmospheric Furnace Brazer: Ramiro Meredith Reviewed date:03/09/2025 07:11:08 PM Interpretation: Performing Lab:[facility], [address] [place] [phone] Notes/Report: Ramiro Meredith See Note Specimen held untested for 24 hours; Call to request Chemistry testing. Urine Culture Reviewed date:03/12/2025 04:26:46 PM Interpretation: Performing Lab:[facility], [address] [place] [phone] Notes/Report: Urine Culture Report Result Urine Culture > 100,000 cfu/ml Urine Culture Mixed bacterial sharee a characteristic of Urine Culture urogenital contamination. Reason For Referral No Information Medications Medication SIG (Take, Route, Frequency, Duration) Notes Start Date End Date Status Lisinopril 10 MG 1 tablet Orally Once a day 06/16/2024 Active Ibuprofen 200 MG 1 tablet with food o r milk as needed Orally Three times a day Not-Taking Vitamin D3 50 MCG (2000 UT) 1 capsule Orally Once a day for 30 day(s) 03/06/2021 Not-Taking Aleve 220 MG 1 tablet with food o r milk as needed Orally every 12 hrs Active Tylenol 325 MG 1 tablet as needed Orally every 4 hrs Active Immunizations Vaccine Route Administration Date Status Comme nts Flu Vaccine IM Intramuscular 09/12/2017 Administered pt wa s given the vaccine at [facility] in [place]. Fluarix Quadrivalent IM Intramuscular 10/28/2018 Administe red [...] Problem Status W/U Status Risk Notes Problem 07046650 Vitamin D deficiency (E55.9) Active confirmed Problem 11431385 Essential hypertension (I10) Active confirmed Problem 00644487 Memory loss (R41.3) Active confirmed Problem 060849992 Elevated triglycerides with high cholesterol (E78.2) Active confirmed Problem 625035229652947 Perimenopausal (N95.1) Active confirmed Problem 802371031 Abnormal mammogram (R92.8) Active confirmed Problem 024784381 Tension headache (G44.209) Active confirmed Problem 03371370 Dysthymia (F34.1) Active confirmed Problem 012164784 Vaginal bleeding (N93.9) Active confirmed Problem 84839492579712433 Arm paresthesi a, left (R20.2) Active confirmed Problem Menopausal symptom (01992119) Hot flashes due to menopause (N95.1) Active [...] Location Date Provider Diagnosis Diego Mayes MD [address] [place] [address] [phone] 03/09/2025 Diego Mayes Blood tests for routine general physical examination Z00.00 ; Elevated triglycerides with high cholesterol E78.2 ; Vitamin D deficiency E55.9 and Essential hypertension I10 Diego Mayes MD [address] [place] [phone] 06/16/2024 Diego Mayes Tension headache G44.209 ; Essential hypertension I10 and Acute diarrhea R19.7 Diego Mayes MD [address] [place] [phone] 09/21/2024 Diego Mayes Encounter for immunization Z23 and Essential hypertension I10 Assessments Encounter Date Diagnosis (ICD Code) Assessment Notes Treatment Notes Treatment Clinical Notes Section Notes 03/09/2025 Blood tests for routine general physical examination (ICD-10 - Z00.00) 06/16/2024 Tension headache (ICD-10 - G44.209) will [...] triglycerides with high cholesterol (ICD-10 - E78.2) 06/16/2024 Acute diarrhea (ICD-10 - R19.7) sounds viral, will continue to monitor 03/09/2025 Vitamin D deficiency (ICD-10 - E55.9) 03/09/2025 Essential hypertension (ICD-10 - I10) Plan Of Treatment Pending Test Test Name Order Date URINALYSIS + MICROSCOPIC 12/13/2018 MAMMOGRAM DIGITAL BILATERAL SCREEN 08/27 MAMMOGRAM DIGITAL BILATERAL SCREEN 03/06 US LEG LT VENOUS DOPPLER 10/09/2021 ECHO 03/10/2022 XR DEXA axial skeleton 03/06/2021 UA ClnCatch+Micro w/rflx Cult 03/09/2025 Next Appt Details Provider Name:Diego Bennett ier, 03/19/2025 09:30:00 AM, [address] [facility], [address], [place], [place], [phone], Insurance Providers Payer Name Payer Address Payer Phone Subscriber Number Group Number Insured Name Patient Relationship to Insured Coverage Start Date Coverage End Date [employer] [address] [place], [place] [id number] [phone] [id number] GLORIA Garcia Self - patient is the insured Medical (General) History Medical History History ICD Code 09/2016 HX of breast lump hematuria evaluation 2017 colonoscopy 10/24/21 repeat 10 2030
== END 2025-03-15 11:03 | disposition home or self-care (01) ==
LOC: HO.HWS 10:43
PROVIDERS: PCP Internal Medicine; Visit Provider Obstetrics & Gynecology
DX: N95.0 Postmenopausal bleeding (principal); D25.9 Leiomyoma of uterus, unspecified
CPT/HCPCS: 99213

== ENCOUNTER → 2025-03-15 10:43 | Outpatient (BNVA) | payer BC, SELFPAY | PROVIDERS: PCP Internal Medicine; Visit Provider Obstetrics & Gynecology ==

== ENCOUNTER 2025-04-06 15:00 | Outpatient (REF) | payer BC, SELFPAY ==
--- OUTSIDE RECORDS SUMMARY | 2025-04-06 15:06 | XMS_ITS | Patient Health Record ---
Author Organization [facility] Address [address] [place] [address] Care Team Providers Care Stucco Worker Name Role Phone Diego Mayes MD Primary [...] Problem Status W/U Status Risk Notes Problem 861975555 Colon cancer screening (Z12.11) Active confirmed Problem [id number] Encounter for other preprocedural examination (Z01.818) Active confirmed Plan Of Treatment Future Test Test Name Order Date COLONOSCOPY 05/29/2021 Insurance Providers Payer Name Payer Address Payer Phone Subscriber Number Group Number Insured Name Patient Relationship to Insured Coverage Start Date Coverage End Date [facility] [address] [facility] [place]GEL [phone] [id number] JERAD GARCIA Self - patient is the insured Medical (General) History Medical History History ICD Code Denies CO,DM,CVA,Lung disease,renal dise ase Surgical History Surgery Date(Month/Year) tubal ligation
--- OUTSIDE RECORDS SUMMARY | 2025-04-06 15:06 | XMS_ITS ---
Author Organization Diego Mayes MD Address [address] [place] [phone] Care Team Providers Care Android Platform Developer Name Role Phone Diego Mayes Primary [...] Date Provider Diagnosis Diego Mayes MD [address] [place] [address] [place] [phone] 09/21/2024 Diego Mayes Encounter for immunization Z23 [...] exercise Next Appt Details Provider Name:Diego noble, 05/07/2025 01:30:00 PM, [address] [place] [address], [address], [phone], Provider Name:Diego noble, 04/02/2026 07:45:00 AM, [address] [place] [address], [address], [phone], Provider Name:Diego noble, 04/09/2026 01:00:00 PM, [address] [place] [address], [address], [phone], Progress Notes * JOSE ARNELDOB: 8 (54 yo F)Acc No.[id number]:09/21/2024 Progress Notes Patient:?ARNEL Garcia Provider:?Diego Mayes MD :1970???Age:54 Y???Sex:Female D ate:09/21/2024 Address:[address] [place] [address] , [place] [id number] Subjective: * Chief Complaints: * ???3 MO [...] Seema Serna on Left Deltoid * Procedure Codes:?32625 FLU V ACCINE NO PRESERV 3 & >26228 IMMUNIZATION ADMIN * Preventive Medicine:? ??Immunizations:?Influenza?Have you had a flu shot since the most recent July 23??Yes.? * * Sign off status: Completed true * Provider:?Diego Mayes MD Date:?1 Generated for Asif verdin/Yolanda/eTransmitting on:?04/06/2025 03:06 PM EDT History and Physical Notes * [...]
--- OUTSIDE RECORDS SUMMARY | 2025-04-06 15:06 | XMS_ITS ---
Author Organization Diego Mayes MD Address [address] [place] [phone] Care Team Providers Care Certified Dental Assistant Name Role Phone Diego Mayes Primary Care Provider Allergies Allergen (clinical drug ingredient) Drug/Non Drug Allergy documented on EMR Reaction Allergy Type Onset Date Status metronidazole Metronidazole rash Drug Allergy Active REASON FOR VISIT ANNUAL EXAM/must see urine, Stopped Lisinopril 2 months ago Medications Medication SIG (Take, Route, Frequency, Duration) Notes Start Date End Date Status Lisinopril 10 MG 1 tablet Orally Once a day for 90 days 06/16/2024 Active Ibuprofen 200 MG 1 tablet with food o r milk as needed Orally Three times a day Not-Taking Aleve 220 MG 1 tablet with food o r milk as needed Orally every 12 hrs Active Tylenol 325 MG 1 tablet as needed Orally every 4 hrs Active Vitamin D3 50 MCG (1999 UT) 1 capsule Orally Once a day for 30 day(s) 03/06/2021 Not-Taking Azelaic Acid 15 % 1 application Mushroom Growth Media Mixer ally Twice a day for 30 days 04/06/2025 Active Social History Tobacco Use: Social History [...] Problem Status W/U Status Risk Notes Problem Rosacea ([id number]) Rosacea (L71.9) Active confirmed Vital Signs Blood pressure systolic 142 mm Hg 04/06/20 25 Blood pressure diastolic 98 mm Hg 025 Height 62 in 04/06/2025 Weight 162 lbs 04/06/2025 BMI 29.63 kg/m2 04/06/2025 weight is down 2 pounds [facility] e 09-21-24 Encounters Encounter Location Date Provider Diagnosis Diego Mayes MD [address] [place], [place] [phone] 04/06/2025 Diego Mayes UTI (urinary tract infection) N39.0 ; Adult general medical examination Z00.00 ; Essential hypertension I10 ; Rosacea L71.9 and Depression screening Z13.31 Assessments Encounter Date Diagnosis (ICD Code) Assessment Notes Treatment Notes Treatment Clinical Notes Section Notes 04/06/2025 UTI (urinary tract infection) (ICD-10 - N39.0) pending labs 04/06/2025 Adult general medical examination (ICD-10 - Z00.00) labs reviewed and discussed with patient 04/06/2025 Essential hypertension (ICD-10 - I10) stable, will contiue current regiment 04/06/2025 Rosacea (ICD-10 - L71.9) patient verbalized understanding of medicatin and directions for use 04/06/2025 Depression screening (ICD-10 - Z13.31) negative screen Plan Of Treatment Medication Medication Name Sig Start Date Stop Date Notes Lisinopril 10 MG 1 tablet Orally Once a day for 90 days Azelaic Acid 15 % 1 application Mushroom Growth Media Mixer ally Twice a day for 30 days 04/06/2025 Treatment Notes Assessment Notes UTI (urinary tract infection) pending la bs Adult general medical examination labs r eviewed and discussed with patient Essential hypertension stable, will cont iue current regiment Rosacea patient verbalized u nderstanding of medicatin and directions for use Depression screening negative screen Pending Test Test Name Order Date Urine Culture 04/06/2025 Next Appt Details Follow Up: 4 Weeks, Reason: Provider Name:Diego Bennett ier, 05/07/2025 01:30:00 PM, [address], [address], [place], [phone], Provider Name:Diego Bennett real, 04/02/2026 07:45:00 AM, [address], [address], [place], [phone], Provider Name:Diego Hirsch Lexuspoornima real, 04/09/2026 01:00:00 PM, [address], [address], [place], [phone], Progress Notes * ARNEL GARCIADOB: 8 (55 yo F)Acc No.[id number]:04/06/2025 Progress Notes Patient:?ARNEL GARCIA Provider:?Diego Mayes MD :1970???Age:55 Y???Sex:Female D ate:04/06/2025 Address:[address] [place] [address] [id number] Subjective: * Chief Complaints: * ???1. ANNUAL EXAM/must see u rine. 2. Stopped Lisinopril 2 months ago. * HPI: ???Depression Screening:?PHQ-9?Little interest or pleasure [...] of PHQ-9 found negative result, no follow-up needed.?Communication Needs:?Communication Needs?Does the patient have a hearing impairment?No,?Does the patient have a vision impairment??Yes,?If yes, what is the vision impairment??Glasses,?Does the patient have a cognition impairment??No.?Fall Risk:?History?Have you had any falls with injury in the past year??No,?Have you had two or more falls in the past year??No.?SDOH Questions:?SDOH Questions?In the past year have you been worried about losing housing??No,?In the past year have you or any family members you live with been unable to get any of the following when it was really needed? Check all that apply:?None.?Symptom(s):?patient is a 55 yo female here for annual visit with review of recent labs an follow up of chronic issues. * ROS:?General/Constitutional:?Change in appetite?denies.?Chills?denies.?Fever?denies.?Ophthalmologic:?Blurred vision?denies.?Discharge?denies.?Pain?denies.?ENT:?Decreased hearing?denies.?Sore throat?denies.?Swollen glands?denies.?Endocrine:?Cold intolerance?denies.?Excessive thirst?denies.?Heat intolerance?denies.?Weight loss?denies.?Respiratory:?Cough?denies.?Shortness of breath at rest?denies.?Shortness of breath with exertion?denies.?Wheezing?denies.?Cardiovascular:?Chest pain at rest?denies.?Chest pain with exertion?denies.?Irregular heartbeat?denies.?Shortness of breath?denies.?Gastrointestinal:?Abdominal pain?denies.?Change in bowel habits?denies.?Diarrhea?denies.?Nausea?denies.?Rectal bleeding?denies.?Vomiting?denies .?Genitourinary:?Blood in urine?denies.?Difficulty urinating?denies.?Frequent urination?denies.?Urinary incontinence?Denies.?Musculoskeletal:?Painful joints?denies.?Weakness?denies.?Skin:?Dry skin?denies.?Itching?denies.?Denies?Mole(s),? changes in moles, new moles or any lesions of concern.?Denies?Photosensitivity.?Rash?denies.?Neurologic:?Dizziness?denies.?Fainting?denies.?Headache?denies.? * Medical History:?09/2016 HX of breast lump, Hematuria evaluation 2016, Colonoscopy 10/24/21 repeat 10 2030. * Family History:?Father: dece ased 95 yrs, diagnosed with Hypertension, Diabetes.?Mother: 85 yrs, diagnosed with Diabetes, Asthma.?2 brother(s) , 2 sister(s) . 3 son(s) [...] frequency:, 2-3 cups per day. Children: yes. Community involvements: no. Exercise: yes, walking and dancing QD. Home smoke detector use: yes. Housing: owning. Living with: spouse. Marital status: . Occupation: weeks/months/years, works full-time. Pets: none. Travel outside of the [place]: no. * Medications:?Taking Aleve 22 0 MG Tablet 1 tablet with food or milk as needed Orally every 12 hrs , Taking Tylenol 325 MG Tablet 1 tablet as needed Orally every 4 hrs , Not-Taking/PRN Lisinopril 10 MG Tablet 1 tablet Orally Once a day , Not- Taking/PRN Ibuprofen 200 MG Tablet 1 tablet with food or milk as needed Orally Three times a day , Not-Taking/PRN Vitamin D3 50 MCG (2000 UT) Capsule 1 capsule Orally Once a day * Allergies:?Metronidazole: ra sh. Objective: * Vitals:?Ht: 62, Wt: 162, BMI :29.63, BP:142/98, Repeat BP:160/98, Wt-k.48. weight is down 2 pounds since 09-21-24. * ???Past Orders: ???Lab:Lipid Panel (Order Da 03/09/2025) (Collection Date & Time 03/09/2025 07:30 AM) ? Value Reference Range ?Triglycerides 382 H <150 - mg/dL ?Cholesterol 286 H <200 - m g/dL ?LDL Cholesterol Calculated 159 H <100 - mg/dL ?HDL Cholesterol 51 >40 - mg/dL ???Lab:Vitamin D 25-OH Total (Order 03/09/2025) (Collection Date & Time 03/09/2025 07:30 AM) ? Value Reference Range ?Vitamin D 25-OH Total 24.6 L >30 - ng/mL ???Lab:Urine Culture (Order 03/09/2025) (Collection & Time 03/09/2025) ? Value Reference Range ?Urine Culture urogenital contamination. - ???Lab:Complete Blood Count Auto Diff (Order 03/09/2025) (Collection Date & Time 03/09/2025 07:30 AM) ? Value Reference Range ?White Blood Count 8.1 4. 8-10.8 - X10*3/uL ?Red Blood Count 4.55 4.20 -5.50 - X10*6/uL ?Hemoglobin 14.4 12.0-16.0 - g/dl ?Hematocrit 41.7 37.0-47.0 - % ?Mean Corpuscular Volume 91.6 80.0-98.0 - fL ?Mean Corpuscular Hemoglobin 31.6 27.0-33.0 - pg ?Mean Corpuscular HGB Conc 34.5 31.0-35.0 - g/dl ?Red Cell Distribution Width 12.2 11.0-16.0 - % ?Platelet Count 340 160-4 00 - X10*3/uL ?Mean Platelet Volume 10.3 9.4-12.3 - fL ?Neutrophils Percent Auto 61.6 45-73 - % ?Imm Gran Pct Auto 0.4 0. 0-0.4 - % ?Lymphocytes Percent Auto 31.1 20-40 - % ?Monocytes Percent Auto 4.7 2-11 - % ?Eosinophils Percent Auto 1.5 0-4 - % ?Basophils Percent Auto 0.7 0-2 - % ?NRBC Pct Auto 0.0 0.0-0. 2 - /100WBC ?Neutrophils Absolute Auto 5.0 2.0-8.3 - x10*3/uL ?Imm Gran Abs Auto 0.03 0. 00-0.03 - X10*3/uL ?Lymphocytes Absolute Auto 2.5 1.2-4.9 - X10*3/uL ?Monocytes Absolute Auto 0.4 0.1-1.2 - X10*3/uL ?Eosinophils Absolute Auto 0.1 0.0-0.4 - X10*3/uL ?Basophils Absolute Auto 0.1 0.0-0.2 - X10*3/uL ?NRBC Abs Auto 0.000 0.0-0. 012 - X10*3/uL * Examination: ???General Examination: ?GENERAL APPEARANCE:?well developed, well nourished, in no acute distress.?HEAD:?normocephalic, atraumatic.?EYES:?pupils equal, round, reactive to light and accommodation, sclera non-icteric.?EARS:?normal.?ORAL CAVITY:?mucosa moist.?THROAT:?clear.?NECK/THYROID:?neck supple, full range of motion, no cervical lymphadenopathy, no bruits.?SKIN:?warm and dry, no suspicious lesions, abnormal with some acne on face that comes and goes.?HEART:?regular rate and rhythm, S1, S2 normal, no murmurs.?LUNGS:?clear to auscultation bilaterally.?BREASTS:?done by complaint evaluation supervisor.?ABDOMEN:?soft, nontender, nondistended, bowel sounds present, normal, no organomegaly , no masses palpable.?RECTAL EXAM:?done by complaint evaluation supervisor.?FEMALE GENITOURINARY:?done by complaint evaluation supervisor.?EXTREMITIES:?no clubbing, cyanosis, or edema.?NEUROLOGIC:?nonfocal, motor strength normal upper and lower extremities, sensory exam intact.? Assessment: * Assessment: 1.?Adult general medical exa mination - Z00.00 (Primary)???2.?UTI (urinary tract infection) - N39.0???3.?Essential hypertension - I10???4.?Rosacea - L71.9???5.?Depression screening - Z13.31??? Plan: * Treatment: 2.?UTI (urinary tract infect ion)?LAB: Urine Culture Notes: pending labs?? 3.?Essential hypertension? Refill Lisinopril Tablet, 10 MG, 1 tablet, Orally, Once a day, 90 days, 90 Tablet, Refills 3.?? Notes: stable, will contiue current regiment?? 4.?Rosacea? Start Azelaic Acid Gel, 15 %, 1 application, Externally, Twice a day, 30 days, 60, Refills 3.?? Notes: patient verbalized understanding of medicatin and directions for use?? 5.?Depression screening? Notes: negative screen?? * Preventive Medicine:? ??Counseling:?Care goal follow-up plan:?Counseling for abnormal BMI provided?Yes,?Above Normal BMI Follow-up?Giving encouragement to exercise.? * Follow Up:?4 Weeks * * The named appointment provid er may or may not be the originator of this progress note, and it is not deemed complete until electronically signed by the appointment provider. Sign off status: Pending * Provider:?Diego Mayes MD Date:?0 04/06/2025 Generated for Asif verdin/Yolanda/Baljeetitting on:?04/06/2025 03:06 PM EDT History and Physical Notes * HPI (History of Present Illness) Category Sub-Category Detail Notes Category Not es Symptom(s) patient is a 55 yo female here for annual visit with review of recent labs an follow up of chronic issues. Depression Screening PHQ-9 Little inte rest or pleasure in doing things: Not at all Feeling down, depressed, or hopeless: No t [...] Q-9 found negative result, no follow-up needed SDOH Questions SDOH Questions In the past year have you been worried about losing housing?: No In the past year have you or any family members you live with been unable to get any of the following when it was really needed? Check all that apply:: None Fall Risk History Have you had any falls with injury i n the past year?: No Have you had two or more falls in the st year?: No Communication Needs Communication Needs Does the patient have a hearing impairment: No Does the patient have a vision impairmen t?: Yes ?If yes, what is the vision impairment?: Glasses Does the patient have a cognition impair ment?: No Examination Category Sub-Category Detail Notes Category Not [...] SKIN: warm and dry, no kassidy picious lesions, abnormal with some acne on face that comes and goes EXTREMITIES: no clubbing, cyanosi s, or edema BREASTS: done by complaint evaluation supervisor RECTAL EXAM: done by complaint evaluation supervisor FEMALE GENITOURINARY: done by complaint evaluation supervisor ORAL CAVITY: mucosa moist
--- OUTSIDE RECORDS SUMMARY | 2025-04-06 15:06 | XMS_ITS | Patient Health Record ---
Author Organization Diego Mayes MD Address [address] [place], [place] [id number] Care Team Providers Care Special Ed Assistant Name Role Phone Diego Mayes Primary Care Provider Allergies Allergen (clinical drug ingredient) Drug/Non Drug Allergy documented on EMR Reaction Allergy Type Onset Date Status metronidazole Metronidazole rash Drug Allergy Active Results Component Value Reference Range Notes UA ClnCatch+Micro w/rflx Cul t (Not yet reviewed by provider) Interpretation:04-06-2025 Performing Lab:[address] [phone] Notes/Report: Urine, Clean Catch Color Urine Yellow Appearance Urine Hazy PH 6.0 5.0-9.0 Glucose Urine UA Negative Negative mg/dL Urine Blood Small (1+) Negative Specific [place] - Urine >= 1.030 1.005-1.025 Urine Protein [...] ff Reviewed date:03/09/2025 07:22:28 PM Interpretation: Performing Lab:[facility], [address] [place] [phone] Notes/Report: White Blood Count 8.1 4.8-10.8 X10*3/uL [...] NRBC Abs Auto 0.000 0.0-0.012 X10*3/uL Comprehensive [place]. Panel Fa st Reviewed date:03/12/2025 04:30:17 PM Interpretation: Performing Lab:[facility], [address] [place] [phone] Notes/Report: Sodium 138 135-145 mmol/L Potassium 4.0 [...] Panel Reviewed date:03/12/2025 04:27:14 PM Interpretation: Performing Lab:[facility], [address] [place] [phone] Notes/Report: Triglycerides 382 <150 mg/dL Desirable Triglyceride: [...] Total Reviewed date:03/12/2025 04:27:23 PM Interpretation: Performing Lab:[address] [phone] Notes/Report: Vitamin D 25-OH Total 24.6 >30 [...] date:02/26/2025 12:49:45 PM Interpretation: Performing Lab: Notes/Report: [facility] [place] [address] Mammography Report Signed Patient: Gloria Garcia MR#: [id number] 96 : 1970 Acct:[id number] Age/Sex: 55 / F ADM Date: 02/20/25 Loc: HO.MAMMO Attending Dr: Diego Mayes MD Ordering Physician: Seun Cloud MD Results: 2Benign Findings Date of Service: 02/20/25 Follow Up: 1 Year From [facility] Mammogram Procedure(s): MM tomosynthesis screening BI Accession Number(s): [id number] cc: Diego Mayes MD; Seun Cloud MD [...] 02/25/25 1854 DD/ 1305 TD/TT: 02/20/25 1319 Director Data: [facility] [address] [place] [address] Mammography Report Signed Patient: Bebe Garcia MR#: [id number] [birth year] : 1970 Acct:[id number] Age/Sex: 55 / F ADM Date: 02/20/25 Loc: HO.MAMMO Attending Dr: Diego Mayes MD Ordering Physician: Seun Cloud MD Results: 2Benign Findings Date of Service: 02/20/25 Follow Up: 1 Year From [facility] Mammogram Procedure(s): MM tomosynthesis screening BI Accession Number(s): [id number] cc: Diego Mayes MD; Seun Cloud MD [...] 02/25/25 1854 DD/ 1305 TD/TT: 02/20/25 1319 Director Data: US pelvic and transvaginal Reviewed date:02/27/2025 12:16:46 PM Interpretation: Performing Lab: Notes/Report: [address] [address] Ultrasound Report Signed Patient: Gloria Garcia MR#: [id number] [birth year] : 1970 Acct:[id number] Age/Sex: 55 / F ADM Date: 02/26/25 Loc: HO.US Attending Dr: Seun Cloud MD Ordering Physician: Seun Cloud MD Date of Service: 02/26/25 Procedure(s): US pelvic and transvaginal Accession Number(s): [id number] cc: Diego Mayes MD; Seun Cloud MD [...] 02/27/25 0709 DD/ 1620 TD/TT: 02/26/25 1650 Director Data: [place] [address] Ultrasound Report Signed Patient: Bebe Garcia MR#: [id number] 96 : 1970 Acct:[id number] Age/Sex: 55 / F ADM Date: 02/26/25 Loc: HO.US Attending Dr: Seun Cloud MD Ordering Physician: Seun Cloud MD Date of Service: 02/26/25 Procedure(s): US pel kyung and transvaginal Accession Number(s): [id number] cc: Diego Mayes MD; Seun Cloud MD [...] 02/27/25 0709 DD/ 1620 TD/TT: 02/26/25 1650 Director Data: Ramiro Meredith Reviewed date:03/09/2025 07:11:08 PM Interpretation: Performing Lab:[facility], [address] [place] [phone] Notes/Report: Ramiro Meredith See Note Specimen held untested for 24 hours; Call to request Chemistry testing. Urine Culture Reviewed date:03/12/2025 04:26:46 PM Interpretation: Performing Lab:[facility], [address] [place] [phone] Notes/Report: Urine Culture Report Result Urine Culture > 100,000 cfu/ml Urine Culture Mixed bacterial sharee a characteristic of Urine Culture urogenital contamination. Reason For Referral No Information Medications Medication SIG (Take, Route, Frequency, Duration) Notes Start Date End Date Status Azelaic Acid 15 % 1 application Business Process Associate ally Twice a day for 30 days 04/06/2025 Active Lisinopril 10 MG 1 tablet Orally Once [...] a day for 30 day(s) 03/06/2021 Not-Taking Immunizations Vaccine Route Administration Date Status Comme nts Flu Vaccine IM Intramuscular 09/12/2017 Administered pt wa s given the vaccine at [facility] in [place]. Fluarix Quadrivalent IM Intramuscular 10/28/2018 Administe red [...] Problem Status W/U Status Risk Notes Problem 84140658 Vitamin D deficiency (E55.9) Active confirmed Problem 77098338 Essential hypertension (I10) Active confirmed Problem Rosacea (043541211) Rosacea (L71.9) Active conf irmed Problem 23799952 Memory loss (R41.3) Active confirmed Problem 947972020 Elevated triglycerides with high cholesterol (E78.2) Active confirmed Problem 832908489674027 Perimenopausal (N95.1) Active confirmed Problem 867990332 Abnormal mammogram (R92.8) Active confirmed Problem 802420737 Tension headache (G44.209) Active confirmed Problem 13742858 Dysthymia (F34.1) Active confirmed Problem 173781344 Vaginal bleeding (N93.9) Active confirmed Problem 43672996429651436 Arm paresthesi a, left (R20.2) Active confirmed Problem Menopausal symptom (48287942) Hot flashes due to menopause (N95.1) Active confirmed Vital Signs Blood pressure diastolic 98 mm Hg 04/06/2025 abhishek ght is down 2 pounds since 09-21-24 Height 62 in 04/06/2025 weight is down 2 pounds since 09-21-24 Blood pressure systolic 142 mm Hg 04/06/2025 weig ht is down 2 pounds since 09-21-24 Weight 162 lbs 04/06/2025 weight is down 2 pounds since 09-21-24 BMI 29.63 kg/m2 04/06/2025 weight is down 2 pounds since 09-21-24 Encounters Encounter Location Date Provider Diagnosis Diego Mayes MD [address] [place] [phone] 03/09/2025 Diego Mayes Blood tests for routine general physical examination Z00.00 ; Elevated triglycerides with high cholesterol E78.2 ; Vitamin D deficiency E55.9 and Essential hypertension I10 Diego Mayes MD [address] [place] [phone] 04/06/2025 Diego Mayes UTI (urinary tract infection) N39.0 ; Adult general medical examination Z00.00 ; Essential hypertension I10 ; Rosacea L71.9 and Depression screening Z13.31 Diego Mayes MD [address] [place] [id number] 06/16/2024 Diego Mayes Tension headache G44.209 ; Essential hypertension I10 and Acute diarrhea R19.7 Diego Mayes MD [address] [place] [phone] 09/21/2024 Diego Mayes Encounter for immunization Z23 and Essential hypertension I10 Assessments Encounter Date Diagnosis (ICD Code) Assessment Notes Treatment Notes Treatment Clinical Notes Section Notes 03/09/2025 Blood tests for routine general physical examination (ICD-10 - Z00.00) 04/06/2025 UTI (urinary tract infection) (ICD-10 - N39.0) pending labs 04/06/2025 Adult general medical examination (ICD-10 - Z00.00) labs reviewed and discussed with patient 06/16/2024 Tension headache (ICD-10 [...] triglycerides with high cholesterol (ICD-10 - E78.2) 04/06/2025 Essential hypertension (ICD-10 - I10) stable, will contiue current regiment 06/16/2024 Acute diarrhea (ICD-10 - R19.7) sounds viral, will continue to monitor 03/09/2025 Vitamin D deficiency (ICD-10 - E55.9) 04/06/2025 Rosacea (ICD-10 - L71.9) patient verbalized understanding of medicatin and directions for use 03/09/2025 Essential hypertension (ICD-10 - I10) 04/06/2025 Depression screening (ICD-10 - Z13.31) negative screen Plan Of Treatment Pending Test Test Name Order Date URINALYSIS + MICROSCOPIC 12/13/2018 MAMMOGRAM DIGITAL BILATERAL SCREEN 03/06 MAMMOGRAM DIGITAL BILATERAL SCREEN 08/27 US LEG LT VENOUS DOPPLER 10/09/2021 ECHO 03/10/2022 Urine Culture 04/06/2025 XR DEXA axial skeleton 03/06/2021 UA ClnCatch+Micro w/rflx Cult 03/09/2025 Next Appt Details Provider Name:Diego noble, 05/07/2025 01:30:00 PM, [address] [place] [address], [address], [phone], Provider Name:Diego noble, 04/02/2026 07:45:00 AM, [address] [place] [address], [place] [address], [place], [place], [phone], Provider Name:Diego noble, 04/09/2026 01:00:00 PM, [address] [place] [address], [place] [address], [place], [place], [phone], Insurance Providers Payer Name Payer Address Payer Phone Subscriber Number Group Number Insured Name Patient Relationship to Insured Coverage Start Date Coverage End Date [facility] [address] [place], [place] [id number] [phone] [id number] GLORIA Garcia Self - patient is the insured Medical (General) History Medical History History ICD Code 09/2016 HX of breast lump hematuria evaluation 2016 colonoscopy 10/24/21 repeat 10 2030
--- OUTSIDE RECORDS SUMMARY | 2025-04-06 15:06 | XMS_ITS ---
Author Organization Diego Mayes MD Address [address] [place], [place] [id number] Care Team Providers Care Associate Teacher Name Role Phone Diego Mayes Primary Care Provider Results Component Value Reference Range Notes UA ClnCatch+Micro w/rflx Cul t (Not yet reviewed by provider) Interpretation:04-06-2025 Performing Lab:[facility], [address] [place] [phone] Notes/Report: Urine, Clean Catch Color Urine Yellow Appearance Urine Hazy PH 6.0 5.0-9.0 Glucose Urine UA Negative Negative mg/dL Urine Blood Small (1+) Negative Specific [place] - Urine >= 1.030 1.005-1.025 Urine Protein [...] ff Reviewed date:03/09/2025 07:22:28 PM Interpretation: Performing Lab:[facility], [address] [place] [phone] Notes/Report: White Blood Count 8.1 4.8-10.8 X10*3/uL [...] NRBC Abs Auto 0.000 0.0-0.012 X10*3/uL Comprehensive [place]. Panel Fa st Reviewed date:03/12/2025 04:30:17 PM Interpretation: Performing Lab:[facility], [address] [place] [phone] Notes/Report: Sodium 138 135-145 mmol/L Potassium 4.0 [...] Panel Reviewed date:03/12/2025 04:27:14 PM Interpretation: Performing Lab:[facility], [address] [place] [phone] Notes/Report: Triglycerides 382 <150 mg/dL Desirable Triglyceride: [...] Total Reviewed date:03/12/2025 04:27:23 PM Interpretation: Performing Lab:[facility], [address] [place] [phone] Notes/Report: Vitamin D 25-OH Total 24.6 >30 [...] Location Date Provider Diagnosis Diego Mayes MD [address] [place] [address] [place] [phone] 03/09/2025 Diego Mayes Blood tests for routine [...] Details Provider Name:Diego noble, 05/07/2025 01:30:00 PM, [address] [place] [address], [address] [place] [address], [phone], Provider Name:Diego noble, 04/02/2026 07:45:00 AM, [address] [place] [address], [address], [phone], Provider Name:Diego noble, 04/09/2026 01:00:00 PM, [address] [place] [address], [address], [phone], Progress Notes * CALI GARCIA: 8 (55 yo F)Acc No.[id number]:03/09/2025 Progress Note Patient:?ARNEL GARCIA Provider:?Diego Mayes MD :1970???Age:55 Y???Sex:Female D ate:03/09/2025 Address:[address] [place] [address] [facility] Subjective: * Chief Complaints: * ???1. FASTING [...] Time - 03/09/2025 07:30 AM) ?LAB: Comprehensive [place]. Panel Fast (Collection Date & Time - [...] Time - 03/09/2025 07:30 AM) ?LAB: Comprehensive [place]. Panel Fast (Collection Date & Time - [...] Time - 03/09/2025 07:30 AM) ?LAB: Comprehensive [place]. Panel Fast (Collection Date & Time - 03/09/2025 07:30 AM) ?LAB: Lipid Panel (Collection Date & Time - 03/09/2025 07:30 AM) ?LAB: Vitamin D 25-OH Total (Collection Date & Time - 03/09/2025 07:30 AM) * Procedure Codes:?09535 VENIP UNCT, ROUTINE* * * The named appointment provid er may or may not be the originator of this progress note, and it is not deemed complete until electronically signed by the appointment provider. Sign off status: Pending * Provider:?Diego Mayes MD Date:?0 03/09/2025 Generated for Asif verdin/Yolanda/eTgmsmitting on:?04/06/2025 03:06 PM EDT
== END 2025-04-06 15:01 | disposition home or self-care (01) ==
LOC: HO.LNP 15:00
PROVIDERS: Visit Provider Internal Medicine
DX: N39.0 Urinary tract infection, site not specified (principal)
CPT/HCPCS: 87086